=== PATIENT | male | born 1945 | race Caucasian/White ===

== ENCOUNTER 2019-04-26 01:47 | Day surgery (SDC) | payer MEDICARE, SELFPAY ==
[2019-04-20 14:32] VITALS: BMI 21.3
[2019-04-26 07:06] VITALS: BP 140/71; PULSE 73; RESP 16; TEMP 36.9; O2SAT 100
[2019-04-26] MEDS: LACTATED RINGERS 1,000 ML 150 ML IV CONT (07:23)
--- NOTE | 2019-04-26 07:23 | WPDANESEPPF ---
Anes - Initial Pre Proc Eval Procedure: Operation Date: 04/26/19 08:00 Proposed Procedures p Screening Colonoscopy - Michel Ji MD Date/Time: 04/26/19 07:23 Surgeon: Michel Ji MD Pre Op Diagnosis: Hx Colon Polyps Patient Data Age: 73 Gender: M Height: 5 ft 8 in Weight: 59.8 kg Last Vital Signs Temp 98.5 F 04/26/19 07:06 Pulse 73 04/26/19 07:06 Resp 16 04/26/19 07:06 BP 140/71 04/26/19 07:06 Pulse Ox 100 04/26/19 07:06 Allergies Allergy/AdvReac Type Severity Reaction Status Date / Time cyclobenzaprine Allergy Unknown Hallucinati Verified 04/26/19 07:13 ng Penicillins Allergy Unknown Seizure Verified 04/26/19 07:13 oxybutynin AdvReac Unknown Hallucinati Verified 04/26/19 07:13 ng Home Medications Medication Instructions Recorded Confirmed Type atorvastatin 80 mg PO HS 04/20/19 04/26/19 History esomeprazole magnesium See Rx Instructions .ROUTE 04/20/19 04/26/19 History .COMPLEX MDD MWF metoprolol tartrate 50 mg PO BID 04/20/19 04/26/19 History nitroglycerin 0.4 mg SUBLINGUAL PRN PRN 04/20/19 04/20/19 History Patient hx anesthesia problems: none Family hx anesthesia problems: none [facility]LY [facility] Past Medical History Medical History (Updated 01/22/19 @ 00:00 by [facility] Daesau) Angina at rest CAD (coronary artery disease) COPD (chronic obstructive pulmonary disease) HTN (hypertension) Hypercholesterolemia Inguinal hernia Myocardial infarction Prostate cancer Seizures Surgical History Surgical History (Updated 01/21/19 @ 17:50 by ESTEFANIA Haider) H/O angioplasty H/O cardiac catheterization H/O inguinal hernia repair H/O prostatectomy History of total knee arthroplasty Status post implantation of artificial urinary sphincter Social History Social History Smoking status: Current every day smoker Second hand tobacco smoke exposure: Yes Alcohol intake: current Gender identity (if verbalized by the patient): Male Anes - Eval Final PreProcedure Day of Procedure 04/26/19 07:23 Patient weight: normal Heart: regular rate and rhythm Lungs: clear to auscultation Airway: Mallampati scale class II Neurological: alert and oriented Last oral intake: >/= 8 hours ASA classification: III Emergent: no Anesthetic plan: proceed Anesthesia type and monitoring: general GIVS and standard monitoring Informed Consent: The patient's anesthetic plan and its attendant risks and benefits were discussed with the patient/family/POA. Questions were solicited and answers provided to the satisfaction of the patient/family/POA.
--- NOTE | 2019-04-26 08:01 | P.CONGI_ITS ---
Assessment and Plan Additional Plan This is a 73-year-old white male patient who presents for colonoscopy. Patient is seen at the request of Dr. Schilling. Patient has a history of a tubulovillous adenoma removed in 2013. His current weight appetite bowel movements are normal. He denies any abdominal pain. He denies any bleeding. His bowel habits are regular. Family history is noncontributory. Past medical history is significant for GE reflux. Elevated cholesterol. Hypertension. Current medications include Nexium, atorvastatin, metoprolol, and sublingual nitroglycerin p.r.n.. Patient is allergic to penicillin and Flexeril. Physical exam reveals him to be alert. Oriented x3. HEENT exam unremarkable. He is anicteric. Lungs are clear to auscultation and percussion. Heart is without murmur or extra sounds. Abdominal exam bowel sounds are present soft nontender with no hepatosplenomegaly. Digital external rectal exam is normal. Impression 1. Personal history of colon polyps. Plan is for surveillance colonoscopy at this time. Should be considered at intervals in the future as well. GI Consult Note Consult date/time: 04/26/19 08:01 HPI: Villa Du is a 73 year old male FOR[facility]LY [facility] Past Medical History Medical History (Updated 01/22/19 @ 00:00 by Nash Daesau) Angina at rest CAD (coronary artery disease) COPD (chronic obstructive pulmonary disease) HTN (hypertension) Hypercholesterolemia Inguinal hernia Myocardial infarction Prostate cancer Seizures Surgical History Surgical History (Updated 01/21/19 @ 17:50 by ESTEFANIA Haider) H/O angioplasty H/O cardiac catheterization H/O inguinal hernia repair H/O prostatectomy History of total knee arthroplasty Status post implantation of artificial urinary sphincter Social History Social History Smoking status: Current every day smoker Second hand tobacco smoke exposure: Yes Alcohol intake: current Gender identity (if verbalized by the patient): Male Meds Home Medications and Allergies Home Medications Medication Instructions Recorded Confirmed Type atorvastatin 80 mg PO HS 04/20/19 04/26/19 History esomeprazole magnesium See Rx Instructions .ROUTE 04/20/19 04/26/19 History .COMPLEX MDD MWF metoprolol tartrate 50 mg PO BID 04/20/19 04/26/19 History nitroglycerin 0.4 mg SUBLINGUAL PRN PRN 04/20/19 04/20/19 History Allergies Allergy/AdvReac Type Severity Reaction Status Date / Time cyclobenzaprine Allergy Unknown Hallucinati Verified 04/26/19 07:13 ng Penicillins Allergy Unknown Seizure Verified 04/26/19 07:13 oxybutynin AdvReac Unknown Hallucinati Verified 04/26/19 07:13 ng Vital Signs Vital Signs - 24 hr 04/26/19 07:06 Temperature 36.9 C Pulse Rate 73 Respiratory Rate 16 Blood Pressure 140/71 Pulse Oximetry 100
[2019-04-26 08:34] VITALS: BP 93/56; PULSE 62; RESP 26; O2SAT 98
[2019-04-26 08:44] VITALS: BP 112/66; PULSE 66; RESP 16; O2SAT 100
[2019-04-26 08:54] VITALS: BP 108/53; PULSE 64; RESP 21; O2SAT 100
== END 2019-04-26 09:15 | disposition home or self-care (01) ==
PROVIDERS: PCP Family Medicine; Visit Provider Internal Medicine Gastroenterology
PROC: 0DJD8ZZ Inspection of Lower Intestinal Tract, Via Natural or Artificial Opening Endoscopic (ICD-10-PCS; CPT 45378; principal; 2019-04-26 08:00)
DX: Z12.11 Encounter for screening for malignant neoplasm of colon (principal); K64.8 Other hemorrhoids; Z86.010 Personal history of colon polyps; I10 Essential (primary) hypertension; E78.00 Pure hypercholesterolemia, unspecified; K21.9 Gastro-esophageal reflux disease without esophagitis; I25.10 Atherosclerotic heart disease of native coronary artery without angina pectoris; J44.9 Chronic obstructive pulmonary disease, unspecified; I25.2 Old myocardial infarction; G40.909 Epilepsy, unspecified, not intractable, without status epilepticus; Z85.46 Personal history of malignant neoplasm of prostate; F17.210 Nicotine dependence, cigarettes, uncomplicated
CPT/HCPCS: G0121; J2704; J7120

== ENCOUNTER 2019-10-31 07:53 | Outpatient (CLI) | payer MEDICARE, SELFPAY ==
--- NOTE | ~2019-10-31 | US_ITS ---
EXAMINATION: US art doppler w press LE BI DATE: 10/31/2019 08:35 INDICATION: Claudication of both lower extremities. TECHNIQUE: Segmental pressures and plethysmographic and Doppler waveforms of the brachial and lower e xtremity arteries were obtained. COMPARISON: Arterial Doppler and segmental pressures 11/03/2018 FINDINGS: Right and left brachial artery pressures of 118 mm Hg and 119 mm Hg, respectively, are concordant (no rmal difference <= 30 mmHg). The right high-thigh pressure index is 1.00 (normal > 1.2). The right ankle-brachial index (ALONSO) is 0 .94 (normal >= 0.9-1.0). The right great toe-brachial index (TBI) is 0.75 (normal >= 0.65). The right lower extremity segmental pressure gradients are normal (normal gradients <= 20-30 mmHg between alejandra cent levels on the same leg or the same levels on the two legs). Arterial Doppler waveforms are bipha sic from common femoral artery to the ankle. The left high-thigh pressure index is 0.99. The left ALONSO is 0.94. The left TBI is 0.65. The left lowe r extremity segmental pressure gradients are normal. Arterial Doppler waveforms are biphasic from com mon femoral artery to the ankle. IMPRESSION: 1. Mildly decreased ABIs with interval worsening on the right, consistent with arterial occlusive dis ease. Reviewed, dictated and finalized at location B. IMPRESSION: 1. Mildly decreased ABIs with interval worsening on the right, consistent with arterial occlusive disease.
== END 2019-10-31 07:54 | disposition home or self-care (01) ==
LOC: ANHIMG 07:54
PROVIDERS: PCP Family Medicine; Visit Provider Family Medicine
DX: I73.9 Peripheral vascular disease, unspecified (principal)
CPT/HCPCS: 93923

== ENCOUNTER 2020-09-26 13:15 | Outpatient (CLI) | payer MEDICARE, SELFPAY ==
--- NOTE | ~2020-09-26 | CT_ITS ---
EXAMINATION: CT lung screening DATE: 09/26/2020 13:34 INDICATION: Personal history of nicotine dependence, current smoker with 60 pack year history TECHNIQUE: Computed tomography (CT) of the chest was performed without intravenous contrast. The dose -length product (DLP) was 83.71 mGy-cm. Automated exposure control and iterative reconstruction techn ePantryue were employed. COMPARISON: 12/15/2018 FINDINGS: There are areas of scarring in the lung apices. There is mild emphysema. Calcified pulmonar y nodules are consistent with old granulomatous disease. The lungs are free of acute opacities. There is no pleural effusion or pneumothorax. No pathologically enlarged thoracic lymph nodes are identifi ed. The heart size is normal. Calcified coronary artery atherosclerosis is noted. There is moderate t horacic spondylosis. Bilateral gynecomastia is noted. IMPRESSION: 1. Lung-RADS category 1: Negative. Continue annual screening with noncontrast low-dose chest CT in 12 months. Reviewed, dictated and finalized at location B. IMPRESSION: 1. Lung-RADS category 1: Negative. Continue annual screening with noncontrast l ow-dose chest CT in 12 months.
== END 2020-09-26 13:16 | disposition home or self-care (01) ==
PROVIDERS: PCP Family Medicine; Visit Provider Family Medicine
DX: Z12.2 Encounter for screening for malignant neoplasm of respiratory organs (principal); Z87.891 Personal history of nicotine dependence
CPT/HCPCS: 71271

== ENCOUNTER 2021-06-01 10:04 | Outpatient (CLI) | payer MEDICARE, SELFPAY ==
--- NOTE | ~2021-06-01 | MR_ITS ---
EXAMINATION: MR brain IAC wo/w con DATE: 06/01/2021 11:10 INDICATION: Other amnesia. TECHNIQUE: Magnetic resonance imaging (MRI) of the brain, brainstem, and internal auditory canals was performed without and with 11 mL MultiHance intravenous contrast. Sequences included sagittal and ax ial T1-weighted FSE, axial diffusion-weighted FS EPI, axial T2*-weighted GRE, axial T2-weighted FLAIR Propeller, axial T2-weighted Propeller, small zhuah-we-vlcu coronal FIESTA, small kfays-al-wdss wily nal T1-weighted FSE, and small eccdt-ba-burp axial T1-weighted SPGR. Postcontrast sequences included axial T1-weighted FSE, small erkig-hm-tcug coronal T1-weighted FSE, and small kmyxz-qk-hkfi axial T1- weighted SPGR. Apparent diffusion coefficient (ADC) maps were created. COMPARISON: Brain MRI 01/08/2019 FINDINGS: There are scattered areas of nonspecific increased T2-weighted signal intensity in the cere bral white matter and mike. There is no intracranial hemorrhage, acute infarction, or abnormal intrac ranial mass lesion. The ventricles are normal in size. There is mild mucosal thickening in the parana li sinuses. The orbits are normal. The internal auditory canals and inner ears are normal. There is a trace left mastoid effusion. IMPRESSION: 1. Mild nonspecific cerebral white matter disease and pontine disease, which likely represents chroni c small vessel ischemic disease. Reviewed, dictated and finalized at location A. IMPRESSION: 1. Mild nonspecific cerebral white matter disease and pontine disease, which bonifacio gilbert represents chronic small vessel ischemic disease.
== END 2021-06-01 10:05 | disposition home or self-care (01) ==
LOC: ANHIMG 10:06
PROVIDERS: PCP Family Medicine; Visit Provider Nurse Practitioner Gerontology
DX: R41.0 Disorientation, unspecified (principal); R41.3 Other amnesia; Z85.46 Personal history of malignant neoplasm of prostate; R93.0 Abnormal findings on diagnostic imaging of skull and head, not elsewhere classified
CPT/HCPCS: 70553; A9577

== ENCOUNTER 2021-07-16 12:48 | Outpatient (CLI) | payer MEDICARE, SELFPAY ==
[2021-07-16 13:33] LABS: Appearance Urine Slightly Cloudy (Clear); Bilirubin Urine Negative (Negative); Color Urine Yellow (Yellow); Glucose Urine UA Negative (Negative); Ketones Urine Negative (Negative); Leukocyte Esterase Ur 2+ LEU/UL (Negative); Nitrate Urine Positive (Negative); Protein Urine Trace mg/dL (Negative); Specific Grav Ur 1.025 (1.001-1.035); Urobilinogen Urine 0.2 mg/dL (<2.0); pH Urine 6.5 (5.0-9.0)
[2021-07-16 13:44] LABS: Bacteria Urine Trace /hpf; Mucus Urine Rare /lpf; Squamous Epithelial Cell Urine Few /hpf (Few); WBC Urine >75 /hpf
[2021-07-16 13:54] LABS: Add Urine Microscopic? YES; Blood Urine Trace-Intact (Negative)
== END 2021-07-16 12:49 | disposition home or self-care (01) ==
LOC: ANHLAB 12:51
PROVIDERS: PCP Family Medicine; Visit Provider Nurse Practitioner Gerontology
DX: R30.0 Dysuria (principal)
CPT/HCPCS: 81001; 87077; 87086; 87186

== ENCOUNTER 2021-10-05 07:46 | Outpatient (CLI) | payer MEDICARE, SELFPAY ==
--- NOTE | ~2021-10-05 | CT_ITS ---
EXAMINATION:CT lung screening DATE: 10/05/2021 08:07 INDICATION: Tobacco use. Current smoker with 60 pack year history. TECHNIQUE: Computed tomography (CT) of the chest was performed without intravenous contrast. Automate d exposure control and iterative reconstruction technique were employed. The dose-length product (DLP ) was 66.80 mGy-cm. COMPARISON: Chest CT 09/26/2020 FINDINGS: There is mild emphysema. There is stable mild scarring at the lung apices. There is mild at electasis bilaterally. There is a 3 mm nodule in left lower lobe. Calcified right hilar lymph nodes a re consistent with old granulomatous disease. No pleural effusion. 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 The heart size is normal. There are coronary artery calcifications. There are calcificati ons of the aortic valve. No pericardial effusion. There is bilateral gynecomastia. There is severe th oracic spondylosis. IMPRESSION: 1. Lung-RADS category 2: Benign appearance or behavior. Continue annual screening with noncontrast lo w-dose chest CT in 12 months. Reviewed, dictated and finalized at location A. IMPRESSION: 1. Lung-RADS category 2: Benign appearance or behavior. Continue annual screeni ng with noncontrast low-dose chest CT in 12 months.
== END 2021-10-05 07:47 | disposition home or self-care (01) ==
PROVIDERS: PCP Family Medicine; Visit Provider Physician Assistant
DX: Z12.2 Encounter for screening for malignant neoplasm of respiratory organs (principal); Z87.891 Personal history of nicotine dependence
CPT/HCPCS: 71271

== ENCOUNTER 2021-10-23 08:33 | Outpatient (CLI) | payer MEDICARE, SELFPAY ==
--- NOTE | 2021-10-23 11:04 | WPDNEUROLOGY ---
Neurology EEG Report General Information Date of Study: 10/23/21 TEST Routine EEG DIAGNOSIS Dementia CONDITION OF RECORDING Awake, drowsy, alseep EEG NUMBER [id number] CLINICAL HISTORY Patient reports he is having trouble with his memory. Not sure how long it has been going on. EEG DESCRIPTION During the awake state with eyes closed the background consists of 8 Hz posterior dominant rhythm. The recording is continuous. There is a well developed anterior-posterior gradient. No significant asymmetries of background activities are noted. With drowsiness there is was waxing and waning of the dominant rhythm with eventual replacement by a mixture of beta, alpha, and theta activity. As the patient enters stage II sleep, symmetrical spindles and K complexes wave are present. There are no epileptiform discharges or seizures during this recording. Photic stimulation was performed which did not illicit any epileptiform features or seizures. IMPRESSION This is a normal routine EEG recorded in awake, drowsy, and asleep states. There are no electrographic seizures identified, nor are there any epileptiform discharges. Please note that a normal EEG cannot exclude a seizure disorder. Clinical correlation is recommended.
== END 2021-10-23 08:34 | disposition home or self-care (01) ==
LOC: ANHNEURO 08:38
PROVIDERS: PCP Family Medicine; Visit Provider Psychiatry & Neurology Neurology
DX: F03.90 Unspecified dementia, unspecified severity, without behavioral disturbance, psychotic disturbance, mood disturbance, and anxiety (principal); R44.3 Hallucinations, unspecified
CPT/HCPCS: 95816

== ENCOUNTER 2022-05-16 15:07 | Inpatient (IN) | payer MEDICARE, SELFPAY ==
[2022-05-16] VITALS (9 sets, daily range): BP systolic 108–153; BP diastolic 47–82; PULSE 105–122; RESP 18–24; TEMP 37–37.6; O2SAT 95–98; BMI 20.6
--- NOTE | ~2022-05-16 | CT_ITS ---
Clinical Indication: Pneumonia, mass CT Scan of the Chest with Contrast: Technique: Contiguous sections were acquired throughout the chest after intravenous administration of 75 cc of Omnipaque 350. Dose reduction technique was used on this scan by utilizing automated exposu re control and iterative reconstruction technique. The dose-length product (DLP) was 158.03 mGy-cm. COMPARISON: 10/05/2021 Findings: There is no evidence of any significant mediastinal, hilar or axillary lymphadenopathy. Coronary ruma ry calcifications are present. There are atherosclerotic calcifications of the aorta. No aortic aneur ysm dissection evident. No large central pulmonary embolus seen. 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 There is no evidence of pleural or pericardial effusion. There is somewhat masslike right upper lobe consolidation, with the densest portion of consolidation measuring approximately 5.9 x 4.7 cm in extent, with more patchy surrounding airspace disease in the right upper lobe. There is a 6 mm irregular nodular opacity in the right lower lobe (axial image 80). Left lung is clear. Images through the upper abdomen reveal no abnormalities. Impression: Extensive somewhat masslike consolidation in the right upper lobe, as detailed above. As the right up per lobe was completely clear on prior exam dated 10/05/2021, pneumonia is favored over neoplasm. Short -term follow-up CT recommended to reevaluate following interval therapy in 1 month. If there is persi stent clinical concern for neoplasm, then tissue sampling could also be considered to establish a his tologic diagnosis at this time. Reviewed, dictated and finalized at [facility]. Impression: Extensive somewhat masslike consolidation in the right upper lobe, as detailed above. As the right upper lobe was completely clear on prior exam dated 2, pneumonia is favored over neoplasm. Short-term follow-up CT recommended to r eevaluate following interval therapy in 1 month. If there is persistent clinica l concern for neoplasm, then tissue sampling could also be considered to establ maryanne a histologic diagnosis at this time.
--- NOTE | ~2022-05-16 | XR_ITS ---
Clinical Indication: Cough AP and lateral views of the chest: Comparison: 07/31/2016 Findings: There is right upper lobe consolidation. Left lung clear. Cardiomediastinal silhouette is within normal limits. Bones and soft tissues are unremarkable. Impression: Right upper lobe consolidation, most consistent with pneumonia. Follow-up to radiographic resolution is advised to exclude underlying mass. Reviewed, dictated and finalized at location . Impression: Right upper lobe consolidation, most consistent with pneumonia. Follow-up to ra diographic resolution is advised to exclude underlying mass.
--- NOTE | ~2022-05-16 | CT_ITS ---
Non-contrast CT scan of the Abdomen and Pelvis Clinical indication: Hematuria Technique: 2.5 mm axial scans were obtained through the abdomen and pelvis without intravenous or or al contrast. Dose reduction technique was used on this scan by utilizing automated exposure control a nd iterative reconstruction technique. The dose-length product (DLP) was 388.04 mGy-cm. COMPARISON: 01/30/2018 Findings: Images through the lung bases reveal no abnormalities. There is no evidence of renal or ureteral calculi. The kidneys and the ureters are nondilated. The liver, spleen, pancreas, gallbladder, and adrenals appear normal. There is no aortic aneurysm. T here are atherosclerotic calcifications of the aorta. There is no evidence of bowel obstruction. No ascites evident. Images through the pelvis are degraded by extensive streak artifact from bilateral hip arthroplasties . No gross pelvic abnormality seen. There is focal aneurysmal dilatation of the left common iliac art ting to 1.8 cm. Impression: No etiology for hematuria identified on this exam. 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 Reviewed, dictated and finalized at [facility]. Impression: No etiology for hematuria identified on this exam. 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
--- NOTE | ~2022-05-16 | XR_ITS ---
AP view of the pelvis and AP and lateral views of the left hip Clinical history: Pain Findings: No acute fracture or dislocation is seen. Bilateral hip arthroplasties are present. Mild de generative change of the SI joints noted. Soft tissues are unremarkable. Impression: No acute abnormality. 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 Reviewed, dictated and finalized at location . Impression: No acute abnormality. 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
--- NOTE | 2022-05-16 15:13 | ECG_ITS ---
Measurements Intervals [place] Rate: 116 P: 59 VT: 173 QRS: 13 QRSD: 89 T: 57 QT: 359 QTc: 499 Interpretive Statements SINUS TACHYCARDIA NON-CONDUCTED ATRIAL PREMATURE COMPLEXES POSSIBLE LEFT ATRIAL ENLARGEMENT BORDERLINE ST-T WAVE ABNORMALITY- ANTEROLAT/HIGH LAT LEADS BASELINE ARTIFACT- I, II, III, AVR, AVL, AVF, V1-V6 ABNORMAL ECG NO PREVIOUS ECG AVAILABLE FOR COMPARISON Electronically Signed On 05-16-2022 20:24:04 CDT by Reji Shoemaker D.O.
--- NOTE | 2022-05-16 16:03 | ED.GENADULT ---
HPI - General Adult General Chief complaint: Fall Stated complaint: fall- left hip pain History of Present Illness HPI narrative: 76-year-old male presenting to the emerged department for evaluation of cute onset of left hip pain after having a ground-level fall this morning. Patient reports he was sitting at his chair using the computer when he began to slip and was unable to recover. Patient is unsure how he fell but feels that he hyperextended his left hip. Patient does have underlying history of dementia and is a poor historian. Patient denies striking his head. Patient reports he has had increased cough and congestion. Patient was wearing 2 depends on arrival to the ED. was not initially present during the initial evaluation. Patient does have a prior history of this, hypertension, high cholesterol, COPD, dementia Related Data Home Medications Medication Instructions Recorded Confirmed atorvastatin 80 mg tablet 80 mg PO HS 04/20/19 06/29/21 metoprolol tartrate 50 mg tablet 50 mg PO BID 04/20/19 06/29/21 aspirin 81 mg tablet,delayed 81 mg PO DAILY 08/13/21 release (Adult Low Dose Aspirin) Allergies Allergy/AdvReac Type Severity Reaction Status Date / Time Penicillins Allergy Unknown Seizure Verified 11/17/21 15:15 cyclobenzaprine AdvReac Unknown Hallucinati Verified 05/16/22 16:35 ng oxybutynin AdvReac Unknown Hallucinati Verified 11/17/21 15:15 ng Review of Systems Review of Systems: . All systems reviewed & are unremarkable except as noted in HPI and below PMFSH Past Medical History Medical History Angina at rest CAD (coronary artery disease) COPD (chronic obstructive pulmonary disease) HTN (hypertension) Hypercholesterolemia Inguinal hernia Myocardial infarction Prostate cancer Seizures Tobacco abuse Surgical History Surgical History H/O angioplasty H/O cardiac catheterization H/O inguinal hernia repair H/O prostatectomy Hx of appendectomy S/P total hip arthroplasty bilateral Status post implantation of artificial urinary sphincter Family History Family History Other Family history of heart disease in male family member before age 55 Malignant neoplasm of prostate Social History Social History Social History: Smoking packs per day: 1.5 Smoking cigarettes per day: 30.0 Years smoked: 60 Smoking pack-years: 90.00 Smoking status: Current every day smoker Tobacco type: cigarettes Second hand tobacco smoke exposure: Yes Alcohol intake: current Alcohol use details: Occasionally Substance use: never Substance use type: does not use Living arrangements: with family Occupation/Education: retired Gender identity (if verbalized by the patient): Male Sexual Orientation (if Verbalized by the Patient): Straight or Heterosexual Exam Narrative: APPEARANCE: Well appearing, no pain, no distress, well-nourished. HEAD: normocephalic, atraumatic. EYES: PERRLA/EOMI, conjunctivae clear. NOSE: Normal no drainage NECK: Supple. No adenopathy, no masses. RESPIRATORY: Airway patent, respirations nonlabored. Clear to auscultation bilaterally, no rales, rhonchi, wheezing. CARDIOVASCULAR: Regular rate and rhythm without murmurs rubs or gallops. ABDOMINAL: Soft, nontender, nondistended, normal bowel sounds MUSCULOSKELETAL: Moves all extremities. Left lateral hip tenderness to palpation. Normal range of motion. Neurovascular intact. NEURO: Alert. Cranial nerves II through XII intact. Grossly intact SKIN: Warm, dry. Normal Color Course Course Emergency Course: 76-year-old male with history of left hip pain post fall. X-ray shows no acute fracture or dislocation of the left hip. Patient was tachycardic upon arri
[2022-05-16 16:12] LABS: Basophils Percent Auto 0.2 % (0.2-1.2); Eosinophils Absolute Auto 0.1 K/mm3 (0-0.3); Eosinophils Percent Auto 0.9 % (0-4.4); Hematocrit 31.5 % (42.0-52.0); Hemoglobin 10.4 g/dL (14.0-18.0); Immature Granulocyte Absolute 0.03 K/mm3 (0.00-0.031); Immature Granulocyte Percent A 0.3 % (0-0.5); Lymphocytes Absolute Auto 0.67 K/mm3 (0.9-3.2); Lymphocytes Percent Auto 6.4 % (18.3-44.2); Mean Corpuscular Hemoglobin 31.6 pg (26-34); Mean Corpuscular Volume 95.7 fl (80-100); Mean Platelet Volume 9.8 fl (7.4-10.4); Monocytes Absolute Auto 1.1 K/mm3 (0.1-0.6); Monocytes Percent Auto 10.6 % (2.6-8.5); Neutrophils Absolute Auto 8.6 K/mm3 (1.3-6.7); Neutrophils Percent Auto 81.6 % (45.5-73.1); Platelet Count Result 272 k/mm3 (150-375); Red Blood Count 3.29 M/mm3 (4.6-6.20); Red Cell Distribution Width 14.3 % (11.5-14.5); White Blood Count 10.6 K/mm3 (4.5-10.0)
[2022-05-16 16:23] LABS: Alanine Aminotransferase 42 U/L (6-50); Albumin Level 3.7 g/dL (3.5-5.1); Alkaline Phosphatase 120 U/L (38-126); Anion Gap 5 mmol/L (8-16); Aspartate Amino Transferase 41 U/L (17-59); Blood Urea Nitrogen 12 mg/dL (9-20); Carbon Dioxide 28 mmol/L (22-30); Chloride 101 mmol/L (98-107); Estimated CRCL calculation 50 ml/min; Estimated Glomerular Filt Rate > 60; Glucose 115 mg/dL (65-110); Sodium 134 mmol/L (137-145)
[2022-05-16] MEDS: POTASSIUM CHLORIDE 20 MEQ PACKET (FOR LIQUID) 40 MEQ PO (16:43)
[2022-05-16 16:46] LABS: Influenza A QL RT-PCR Negative (Negative); Influenza B QL RT-PCR Negative (Negative); RSV RNA, RT-PCR Negative (Negative); SARS-CoV-2 RNA PCR Negative
[2022-05-16 17:03] LABS: Appearance Urine Cloudy (Clear); Bacteria Urine 2+ /hpf; Bilirubin Urine Negative (Negative); Blood Urine 1+ (Negative); Color Urine Dark Yellow (Yellow); Glucose Urine UA Negative (Negative); Ketones Urine Negative (Negative); Leukocyte Esterase Ur Negative LEU/UL (Negative); Nitrate Urine Negative (Negative); Protein Urine 2+ mg/dL (Negative); Specific Grav Ur 1.021 (1.001-1.035); Squamous Epithelial Cell Urine Few /hpf (Few); WBC Urine 0-5 /hpf
[2022-05-16 17:12] LABS: Add Urine Microscopic? YES
[2022-05-16] MEDS: KCL 20 MEQ/SW 100 ML 100 ML 50 MEQ IVPB (17:21)
[2022-05-16] MEDS: SODIUM CHLORIDE 0.9% IV 250 ML 50 ML (17:25)
[2022-05-16] MEDS: ALBUTEROL SULFATE NEB 2.5 MG/3 ML INH INHALATION (19:55)
--- NOTE | 2022-05-16 19:55 | PM.IMHP ---
H&P: HPI History of Present Illness Date/Time: 05/16/22 19:55 Chief Complaint: fall Narrative: this is a 76-year-old male patient who came to the emergency department for evaluation of acute left hip pain. The patient had a ground level fall this morning. Patient was sitting in his chair using his computer when he began to slipped and he was not able to recover from his fall. The patient hyperextended his left hip. He does have a history of dementia and is a poor historian. Patient has had a history of prostate cancer and has had a prostatectomy. The patient is chronically incontinent of urine. He has no control of his urine and was wearing a depend upon arrival to ED. his white count is found to be 10.6 and his H&H is 10.4 and 31.5. Shift to the left with neutrophil percentage 81.6. Sodium 134. Potassium is 3.0. The patient had 2+ bacteria In his urine. The patient was supplemented with p.o. potassium and IV potassium. He was given IV fluids in the emergency room. The patient was started on Levaquin. Chest CT was read as the followingExtensive somewhat masslike consolidation in the right upper lobe, as detailed above. As the right upper lobe was completely clear on prior exam dated 10/05/2021, pneumonia is favored over neoplasm. Short-term follow-up CT recommended to reevaluate following interval therapy in 1 month. If there is persistent clinical concern for neoplasm, then tissue sampling could also be considered to establish a histologic diagnosis at this time. 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 hip and pelvis x-ray No acute abnormality. Bilateral hip arthroplasties in placeThe patient is being admitted to observation status on the date of service of 05/16/2022 Review of Systems Review of Systems: All systems reviewed & are unremarkable except as noted in HPI and below Constitutional: Constitutional: Reports as per HPI and Reports no additional constitutional complaints Eyes: Eyes: Reports as per HPI and Reports no additional eye complaints ENT: Reports system reviewed and no additional complaints, except as documented and Reports Normal hearing present Cardiovascular: Cardiovascular: Reports no additional cardiovascular complaints Respiratory: Respiratory: Reports no additional respiratory complaints and Reports no additional respiratory complaints Gastrointestinal: Gastrointestinal: Reports as per HPI and Reports no additional gastrointestinal complaints Musculoskeletal: Musculoskeletal: Reports no additional musculoskeletal complaints Integumentary/Breasts: Skin/Breast: Reports system reviewed and no additional complaints, except as docu and Reports as per HPI Neurologic: Reports system reviewed and no additional complaints, except as documented, Reports as per HPI and Reports Normal hearing present Psychiatric: Psychiatric: Reports no additional psychiatric complaints and Reports as per HPI Endocrine: Endocrine: Reports no additional endocrine complaints Hematologic/Lymphatic: Hematologic/Lymphatic: Reports no additional hematologic/lymphatic complaints Allergic/Immunologic: Allergic/Immunologic: Reports no additional allergic/immunologic complaints [facility] Past Medical History Medical History (Updated 05/17/22 @ 01:06 by Adina Cast NP) Angina at rest CAD (coronary artery disease) COPD (chronic obstructive pulmonary disease) HTN (hypertension) Hypercholesterolemia Inguinal hernia Myocardial infarction Obstructive sleep apnea Prostate cancer Seizures Tobacco abuse Surgical History Surgical History (Updated 05/17/22 @ 01:06 by Adina Cast NP) H/O angioplasty H/O cardiac catheterization H/O heart artery stent 2 H/O hemorrhoidectomy H/O inguinal hernia repair with mesh H/O prostatectomy Hx of appendectomy S/P total hip arthroplasty bilateral Status post implantation of artificial urinary sphincter Family History Family History (Reviewe
--- NOTE | 2022-05-16 20:28 | PC.NURSE ---
This patient, iVlla Du, was admitted to IMU Room 206-01. Patient/family oriented to hospital policies and general routines including ID bracelet, bed and alarms, visiting hours, pain management, procedures, bathroom and other care routines, personal items, smoking policy, room service/diet, and visiting hours. Information on how to activate the Rapid Response Team has been discussed. Patient/Family are encouraged to report perceived risks to care and to ask questions if they do not understand what they are told or what they should do.
[2022-05-17] VITALS (20 sets, daily range): BP systolic 100–136; BP diastolic 50–62; PULSE 98–118; RESP 14–22; TEMP 36.9–37.6; O2SAT 93–96; BMI 20.6
[2022-05-17] MEDS: MIRTAZAPINE 7.5 MG TABLET PO ×2 (01:42→21:11)
[2022-05-17] MEDS: QUEtiapine FUMARATE 25 MG TABLET 50 MG PO ×2 (01:42→21:11)
[2022-05-17] MEDS: DONEPEZIL HCL 5 MG TABLET PO ×2 (01:42→21:11)
[2022-05-17] MEDS: ATORVASTATIN 40 MG TABLET 80 MG PO ×2 (01:42→21:10)
[2022-05-17] MEDS: IPRATROPIUM BR 0.02% INH SOLN 0.5 MG/2.5 ML VIAL INHALATION ×4 (03:20→21:35)
[2022-05-17] MEDS: ALBUTEROL SULFATE NEB 2.5 MG/3 ML INH INHALATION ×4 (03:20→21:35)
[2022-05-17 08:33] LABS: Basophils Percent Auto 0.2 % (0.2-1.2); Eosinophils Absolute Auto 0.1 K/mm3 (0-0.3); Eosinophils Percent Auto 0.9 % (0-4.4); Hematocrit 31.1 % (42.0-52.0); Hemoglobin 10.2 g/dL (14.0-18.0); Immature Granulocyte Absolute 0.05 K/mm3 (0.00-0.031); Immature Granulocyte Percent A 0.4 % (0-0.5); Lymphocytes Absolute Auto 0.96 K/mm3 (0.9-3.2); Lymphocytes Percent Auto 8.2 % (18.3-44.2); Mean Corpuscular HGB Conc 32.8 g/dl (32-36); Mean Corpuscular Hemoglobin 31.7 pg (26-34); Mean Corpuscular Volume 96.6 fl (80-100); Monocytes Absolute Auto 1.6 K/mm3 (0.1-0.6); Monocytes Percent Auto 13.6 % (2.6-8.5); Neutrophils Percent Auto 76.7 % (45.5-73.1); Platelet Count Result 270 k/mm3 (150-375); Red Blood Count 3.22 M/mm3 (4.6-6.20); Red Cell Distribution Width 14.5 % (11.5-14.5); White Blood Count 11.7 K/mm3 (4.5-10.0)
[2022-05-17 08:44] LABS: Lactic Acid Reflex 2.6 mmol/L (0.7-2.0)
[2022-05-17 08:46] LABS: Alanine Aminotransferase 41 U/L (6-50); Albumin Level 3.4 g/dL (3.5-5.1); Alkaline Phosphatase 116 U/L (38-126); Anion Gap 4 mmol/L (8-16); Aspartate Amino Transferase 44 U/L (17-59); Blood Urea Nitrogen 10 mg/dL (9-20); Calcium 8.8 mg/dL (8.4-10.2); Carbon Dioxide 28 mmol/L (22-30); Chloride 105 mmol/L (98-107); Estimated CRCL calculation 44 ml/min; Estimated Glomerular Filt Rate > 60; Glucose 111 mg/dL (65-110); Lactate Dehydrogenase 131 U/L (120-246); Magnesium 2.1 mg/dL (1.6-2.3); Potassium 3.9 mmol/L (3.4-5.0); Sodium 137 mmol/L (137-145)
[2022-05-17] MEDS: METOPROLOL TARTRATE 25 MG TABLET PO ×2 (09:17→21:10)
[2022-05-17] MEDS: amLODIPine BESYLATE 2.5 MG TABLET PO (09:18)
[2022-05-17] MEDS: cilostazoL 100 MG TABLET PO ×2 (09:18→16:47)
[2022-05-17] MEDS: PANTOPRAZOLE 40 MG TABLET PO (09:18)
[2022-05-17] MEDS: ASPIRIN 81 MG ENTERIC TABLET PO (09:18)
[2022-05-17 09:31] LABS: Thyroid Stimulating Hormone Reflex 0.471 uIU/mL (0.465-4.68)
[2022-05-17 11:30] LABS: Reflex Lactic Acid Yes or No Add Lactic
[2022-05-17 11:58] LABS: Lactic Acid 0.6 mmol/L (0.7-2.0)
--- NOTE | 2022-05-17 12:16 | PM.IMPN ---
Progress Note: A&P Assessment and Plan (1) Pneumonia: Code(s): J18.9 - Pneumonia, unspecified organism Status: Acute Assessment and Plan: continue with Levaquin and vancomycin blood and sputum cultures are pending tailor antibiotics according to culture and sensitivity (2) Acute hypokalemia: Code(s): E87.6 - Hypokalemia Status: Acute Assessment and Plan: potassium 3.0 which was replaced. Check magnesium (3) Depression: Code(s): F32.A - Depression, unspecified Status: Acute Assessment and Plan: continue with Remeron continue Seroquel (4) History of prostate cancer: Code(s): Z85.46 - Personal history of malignant neoplasm of prostate Status: Acute Assessment and Plan: history of prostatectomy and is incontinent of urine (5) COPD (chronic obstructive pulmonary disease): Code(s): J44.9 - Chronic obstructive pulmonary disease, unspecified Status: Acute Assessment and Plan: continue nebulizer treatments. (6) Hypercholesterolemia: Code(s): E78.00 - Pure hypercholesterolemia, unspecified Status: Acute Assessment and Plan: Continue with atorvastatin (7) HTN (hypertension): Code(s): I10 - Essential (primary) hypertension Status: Acute Assessment and Plan: continue with Norvasc (8) Obstructive sleep apnea: Code(s): G47.33 - Obstructive sleep apnea (adult) (pediatric) Status: Acute Assessment and Plan: unsure if patient is still wearing a CPAP or BiPAP or Subjective Date/time seen: 05/17/22 12:16 No new complaints Exam Const: General: cooperative, healthy appearing, comfortable, no acute distress, well developed, alert, awake, Physically active, average body habitus and well nourished Nutritional Appearance: average body habitus and well nourished Orientation/consciousness: oriented to person, oriented to place, oriented to time and patient oriented x3 Limitations: no limitations HENMT: Head: normal to inspection, No palpable skull fracture present, normocephalic and atraumatic Ears: external ears normal Face/Nose/Sinus: Normal external nose present and Normal nares present Eyes: General: appearance normal, both eyes and all related structures Alignment and Position: alignment normal Periorbital: periorbital findings normal Eyelids: eyelids normal Sclera: sclerae normal Pupils: Equal, round and reactive pupils present EOM: EOMs intact bilaterally Neck: Neck: normal visual inspection, full ROM, no lymphadenopathy, trachea midline and supple Chest: Chest palpation & inspection: normal inspection of the chest Resp: Effort & Inspection: normal respiratory effort Auscultation: clear to auscultation bilaterally Cardio: Palpation: normal PMI Rate: tachycardic Rhythm: regular rhythm Heart sounds: S1 normal heart sound present and S2 normal heart sound present Peripheral pulses: Peripheral pulses 2+ throughout GI: Inspection: normal to inspection Auscultation: normal bowel sounds Rectal Exam: deferred Back/Spine/Pelvis: Cervical Spine: cervical ROM normal Skin: General skin exam: normal color Lesions: no lesions Rashes: no rashes Trauma: no lacerations or abrasions Wounds: no wounds Hair: normal Nails: normal Neuro: General: oriented to person, oriented to place, oriented to time and patient oriented x3 Cranial nerves: Yes Equal, round and reactive pupils present, Yes Normal hearing present and Yes hard of hearing Cognition (Neuro): normal cognition Speech: normal speech Gait exam (Neuro): Normal gait present Motor exam (neuro): 5/5 motor strength present throughout Sensory Exam: normal sensation Extrem: General: normal to inspection Right upper extremity: normal to inspection and shoulder/upper arm Left upper extremity: normal to inspection and shoulder/upper arm Right lower extremity: normal to inspection Left lower extremity: normal
--- NOTE | 2022-05-17 13:36 | PC.NURSE ---
This patient, Villa Du, was transferred to [ [facility]] on 05/17/22 at 1336. Personal belongings sent with patient. Report given to [ AJ Jackson @ [phone]]. Appropriate documentation sent with patient.
--- NOTE | 2022-05-17 14:15 | PC.NURSE ---
This patient, Villa Du, was received from imu on 05/17/22 at 1400. Patient/family oriented to unit policies and routines
[2022-05-18] VITALS (7 sets, daily range): BP systolic 105–128; BP diastolic 55–67; PULSE 99–118; RESP 15–24; TEMP 36.4–37; O2SAT 92–96
--- NOTE | 2022-05-18 04:02 | PCRCNOTE ---
Window of time for administration has passed. See next scheduled administration.
[2022-05-18] MEDS: METOPROLOL TARTRATE 25 MG TABLET PO ×2 (07:55→21:26)
[2022-05-18] MEDS: cilostazoL 100 MG TABLET PO ×2 (07:56→16:17)
[2022-05-18] MEDS: amLODIPine BESYLATE 2.5 MG TABLET PO (07:56)
[2022-05-18] MEDS: ASPIRIN 81 MG ENTERIC TABLET PO (07:56)
[2022-05-18] MEDS: IPRATROPIUM BR 0.02% INH SOLN 0.5 MG/2.5 ML VIAL INHALATION ×2 (08:21→20:36)
[2022-05-18] MEDS: ALBUTEROL SULFATE NEB 2.5 MG/3 ML INH INHALATION ×2 (08:21→20:36)
[2022-05-18 09:59] LABS: Basophils Percent Auto 0.2 % (0.2-1.2); Eosinophils Absolute Auto 0.1 K/mm3 (0-0.3); Eosinophils Percent Auto 0.8 % (0-4.4); Hematocrit 29.9 % (42.0-52.0); Hemoglobin 9.7 g/dL (14.0-18.0); Immature Granulocyte Absolute 0.08 K/mm3 (0.00-0.031); Immature Granulocyte Percent A 0.7 % (0-0.5); Lymphocytes Absolute Auto 0.65 K/mm3 (0.9-3.2); Lymphocytes Percent Auto 5.3 % (18.3-44.2); Mean Corpuscular HGB Conc 32.4 g/dl (32-36); Mean Corpuscular Hemoglobin 31.1 pg (26-34); Mean Corpuscular Volume 95.8 fl (80-100); Mean Platelet Volume 10.2 fl (7.4-10.4); Monocytes Absolute Auto 1.2 K/mm3 (0.1-0.6); Monocytes Percent Auto 9.7 % (2.6-8.5); Neutrophils Absolute Auto 10.2 K/mm3 (1.3-6.7); Neutrophils Percent Auto 83.3 % (45.5-73.1); Platelet Count Result 322 k/mm3 (150-375); Red Blood Count 3.12 M/mm3 (4.6-6.20); Red Cell Distribution Width 14.5 % (11.5-14.5); White Blood Count 12.3 K/mm3 (4.5-10.0)
[2022-05-18 10:15] LABS: Anion Gap 6 mmol/L (8-16); Blood Urea Nitrogen 8 mg/dL (9-20); Calcium 8.9 mg/dL (8.4-10.2); Carbon Dioxide 28 mmol/L (22-30); Chloride 100 mmol/L (98-107); Estimated CRCL calculation 48 ml/min; Estimated Glomerular Filt Rate > 60; Glucose 124 mg/dL (65-110); Potassium 2.8 mmol/L (3.4-5.0); Sodium 134 mmol/L (137-145)
--- NOTE | 2022-05-18 11:06 | PM.IMPN ---
Progress Note: A&P Assessment and Plan (1) Pneumonia: Code(s): J18.9 - Pneumonia, unspecified organism Status: Acute Assessment and Plan: continue with Levaquin and vancomycin blood and sputum cultures are pending tailor antibiotics according to culture and sensitivity (2) Acute hypokalemia: Code(s): E87.6 - Hypokalemia Status: Acute Assessment and Plan: Replace (3) Depression: Code(s): F32.A - Depression, unspecified Status: Acute Assessment and Plan: continue with Remeron continue Seroquel (4) History of prostate cancer: Code(s): Z85.46 - Personal history of malignant neoplasm of prostate Status: Acute Assessment and Plan: history of prostatectomy and is incontinent of urine (5) COPD (chronic obstructive pulmonary disease): Code(s): J44.9 - Chronic obstructive pulmonary disease, unspecified Status: Acute Assessment and Plan: continue nebulizer treatments. (6) Hypercholesterolemia: Code(s): E78.00 - Pure hypercholesterolemia, unspecified Status: Acute Assessment and Plan: Continue with atorvastatin (7) HTN (hypertension): Code(s): I10 - Essential (primary) hypertension Status: Acute Assessment and Plan: continue with Norvasc (8) Obstructive sleep apnea: Code(s): G47.33 - Obstructive sleep apnea (adult) (pediatric) Status: Acute Assessment and Plan: unsure if patient is still wearing a CPAP or BiPAP or Plan Likely discharge tomorrow once electrolytes have stabilized Subjective Date/time seen: 05/18/22 11:06 Respiratory status is okay. No new complaints today. No chest pain denies shortness of breaths Exam Const: General: cooperative, healthy appearing, comfortable, no acute distress, well developed, alert, awake, Physically active, average body habitus and well nourished Nutritional Appearance: average body habitus and well nourished Orientation/consciousness: oriented to person, oriented to place, oriented to time and patient oriented x3 Limitations: no limitations HENMT: Head: normal to inspection, No palpable skull fracture present, normocephalic and atraumatic Ears: external ears normal Face/Nose/Sinus: Normal external nose present and Normal nares present Eyes: General: appearance normal, both eyes and all related structures Alignment and Position: alignment normal Periorbital: periorbital findings normal Eyelids: eyelids normal Sclera: sclerae normal Pupils: Equal, round and reactive pupils present EOM: EOMs intact bilaterally Neck: Neck: normal visual inspection, full ROM, no lymphadenopathy, trachea midline and supple Chest: Chest palpation & inspection: normal inspection of the chest Resp: Effort & Inspection: normal respiratory effort Auscultation: clear to auscultation bilaterally Cardio: Palpation: normal PMI Rate: tachycardic Rhythm: regular rhythm Heart sounds: S1 normal heart sound present and S2 normal heart sound present Peripheral pulses: Peripheral pulses 2+ throughout GI: Inspection: normal to inspection Auscultation: normal bowel sounds Rectal Exam: deferred Back/Spine/Pelvis: Cervical Spine: cervical ROM normal Skin: General skin exam: normal color Lesions: no lesions Rashes: no rashes Trauma: no lacerations or abrasions Wounds: no wounds Hair: normal Nails: normal Neuro: General: oriented to person, oriented to place, oriented to time and patient oriented x3 Cranial nerves: Yes Equal, round and reactive pupils present, Yes Normal hearing present and Yes hard of hearing Cognition (Neuro): normal cognition Speech: normal speech Gait exam (Neuro): Normal gait present Motor exam (neuro): 5/5 motor strength present throughout Sensory Exam: normal sensation Extrem: General: normal to inspection Right upper extremity: normal to inspection and shoulder/upper arm Left upper extremity: normal to inspect
[2022-05-18] MEDS: POTASSIUM CHLORIDE INJ 40 MEQ in SODIUM CHLORIDE 0.9% IV 500 ML 130 MEQ IVPB (11:33)
[2022-05-18] MEDS: POTASSIUM CHLORIDE 20 MEQ TABLET 40 MEQ PO ×2 (11:33→12:55)
[2022-05-18 17:25] LABS: Potassium 3.8 mmol/L (3.4-5.0)
[2022-05-18] MEDS: ATORVASTATIN 40 MG TABLET 80 MG PO (21:25)
[2022-05-18] MEDS: TOLNAFTATE 1% POWDER 45 GM BTL 1 APPLIC TOPICAL (21:26)
[2022-05-18] MEDS: QUEtiapine FUMARATE 25 MG TABLET 50 MG PO (21:26)
[2022-05-18] MEDS: DONEPEZIL HCL 5 MG TABLET PO (21:26)
[2022-05-18] MEDS: MIRTAZAPINE 7.5 MG TABLET PO (21:26)
[2022-05-19] VITALS (7 sets, daily range): BP systolic 103–118; BP diastolic 62–107; PULSE 103–118; RESP 16–18; TEMP 36.6–37; O2SAT 93–97
[2022-05-19 05:53] LABS: Anion Gap 3 mmol/L (8-16); Blood Urea Nitrogen 10 mg/dL (9-20); Calcium 8.8 mg/dL (8.4-10.2); Carbon Dioxide 27 mmol/L (22-30); Chloride 104 mmol/L (98-107); Estimated CRCL calculation 44 ml/min; Estimated Glomerular Filt Rate > 60; Glucose 116 mg/dL (65-110); Potassium 3.3 mmol/L (3.4-5.0); Sodium 134 mmol/L (137-145)
[2022-05-19 06:27] LABS: Vancomycin Trough 5.4 ug/mL (10.0-20.0)
[2022-05-19] MEDS: cilostazoL 100 MG TABLET PO ×2 (06:57→17:07)
[2022-05-19] MEDS: IPRATROPIUM BR 0.02% INH SOLN 0.5 MG/2.5 ML VIAL INHALATION ×2 (07:37→21:13)
[2022-05-19] MEDS: ALBUTEROL SULFATE NEB 2.5 MG/3 ML INH INHALATION ×2 (07:37→21:13)
[2022-05-19] MEDS: ASPIRIN 81 MG ENTERIC TABLET PO (07:59)
[2022-05-19] MEDS: METOPROLOL TARTRATE 25 MG TABLET PO ×2 (07:59→20:11)
[2022-05-19] MEDS: PANTOPRAZOLE 40 MG TABLET PO (07:59)
[2022-05-19] MEDS: amLODIPine BESYLATE 2.5 MG TABLET PO (07:59)
[2022-05-19] MEDS: TOLNAFTATE 1% POWDER 45 GM BTL 1 APPLIC TOPICAL ×2 (08:02→20:12)
--- NOTE | 2022-05-19 11:23 | ECG_ITS ---
Measurements Intervals [place] Rate: 115 P: 60 NM: 116 QRS: 5 QRSD: 93 T: 58 QT: 328 QTc: 454 Interpretive Statements SINUS TACHYCARDIA WITH SHORT NM INTERVAL VENTRICULAR PREMATURE COMPLEX ABNORMAL ECG COMPARED TO ECG 05/16/2022 15:16:37 NO SIGNIFICANT CHANGES Electronically Signed On 05-19-2022 12:47:15 CDT by Reji Shoemaker D.O.
--- NOTE | 2022-05-19 11:27 | PM.IMPN ---
Progress Note: A&P Assessment and Plan (1) Pneumonia: Code(s): J18.9 - Pneumonia, unspecified organism Status: Acute Plan (1) Pneumonia: ?continue with Levaquin and vancomycin ?blood and sputum cultures are pending MRSA negative, stop Vancomycin continue Levaquin Tachycardia HR 118 EKG ordered patient will not discharge today due to tachycardia (2) Acute hypokalemia Replaced , monitor (3) Depression: ?continue with Remeron ?continue Seroquel (4) History of prostate cancer: ?history of prostatectomy and is incontinent of urine (5) COPD (chronic obstructive pulmonary disease): ?continue nebulizer treatments. (6) Hypercholesterolemia: ? Continue with atorvastatin (7) HTN (hypertension): ?continue? with Norvasc (8) Obstructive sleep apnea: ?unsure if patient is still wearing a CPAP or BiPAP or DVT prophylaxis Sq lovenox Subjective Date/time seen: 05/19/22 11:27 Review of Systems Review of Systems: Patient seen and evaluated bedside, not on oxygen and in no acute distress All systems reviewed & are unremarkable except as noted in HPI and below Exam Narrative: Const: Other: GEN: Healthy appearing, well-developed, NAD. PSYCH: Good Judgment. AOx3. Normal memory, mood, and affect. HEENT: -Head: NC/AT; -Eyes: No discharge or redness; -Ears: External ears are normal. -Nose: Normal nares. -Mouth and throat: MMM. Normal gums, mucosa, palate,. Good dentition. CV: RRR, no m/r/g. LUNGS: CTAB, no w/r/c. ABD: Soft, NT/ND, NBS, no masses or organomegaly. SKIN: Warm, well perfused. No skin rashes or abnormal lesions. MSK: Normal gait. No deformities. EXT: No clubbing, cyanosis, or edema. NEURO: Ambulating with no limitations. No focal deficits. Objective Data Vital Signs Vital Signs: Vital Signs - 24 hr 05/18/22 14:00 05/18/22 21:26 05/18/22 23:05 Temperature 98 F 97.5 F L Pulse Rate 107 H 107 H 118 H Respiratory Rate 16 24 H Blood Pressure 110/66 105/67 Pulse Oximetry 92 92 Oxygen Delivery 05/18/22 20:00 05/19/22 07:38 05/19/22 07:45 Temperature Pulse Rate 118 H Respiratory Rate 24 H 18 18 Blood Pressure Pulse Oximetry 92 Oxygen Delivery Room Air 05/19/22 07:58 05/19/22 07:59 05/19/22 08:00 Temperature 98.6 F Pulse Rate 114 H 114 H Respiratory Rate 16 Blood Pressure 118/107 H Pulse Oximetry 93 Oxygen Delivery Room Air Intake/Output Intake/Output: Intake & Output 05/16/22 05/17/22 05/18/22 05/19/22 23:59 23:59 23:59 23:59 Intake Total 850 810 350 Balance 850 810 350 Meds/Results Medications: Active Medications Generic Name Dose Route Start Last Admin Trade Name Freq PRN Reason Stop Dose Admin Albuterol 2.5 mg 05/16/22 20:00 05/19/22 07:37 Albuterol Sulfate Neb 2.5 Mg/3 Ml Inh INHALATION 2.5 mg Q6HRT OSCAR Administration Amlodipine Besylate 2.5 mg 05/17/22 09:00 05/19/22 07:59 Amlodipine Besylate 2.5 Mg Tablet PO 2.5 mg DAILY OSCAR Administration Aspirin 81 mg 05/17/22 09:00 05/19/22 07:59 Aspirin 81 Mg Enteric Tablet PO 81 mg DAILY OSCAR Administration Atorvastatin Calcium 80 mg 05/17/22 01:05 05/18/22 21:25 Atorvastatin 40 Mg Tablet PO 80 mg HS OSCAR Administration Cilostazol 100 mg 05/17/22 07:30 05/19/22 06:57 Cilostazol 100 Mg Tablet PO 100 mg 0730,1630 OSCAR Administration Donepezil HCl 5 mg 05/17/22 01:05 05/18/22 21:26 Donepezil Hcl 5 Mg Tablet PO 5 mg HS OSCAR Administration Levofloxacin/Dextrose 750 mg in 150 mls @ 100 mls/hr 05/17/22 20:00 05/18/22 21:30 Levaquin 750 Mg/D5w 150 Ml IVPB Infused Q24H OSCAR Infusion Ipratropium [place] 0.5 mg 05/17/22 02:00
[2022-05-19] MEDS: SODIUM CHLORIDE 0.9% IV 1,000 ML 100 ML IV CONT (14:41)
[2022-05-19] MEDS: QUEtiapine FUMARATE 25 MG TABLET 50 MG PO (20:10)
[2022-05-19] MEDS: ATORVASTATIN 40 MG TABLET 80 MG PO (20:10)
[2022-05-19] MEDS: DONEPEZIL HCL 5 MG TABLET PO (20:11)
[2022-05-19] MEDS: MIRTAZAPINE 7.5 MG TABLET PO (20:11)
[2022-05-20] VITALS (11 sets, daily range): BP systolic 112–125; BP diastolic 53–66; PULSE 90–111; RESP 12–18; TEMP 36.6–37; O2SAT 90–96
--- NOTE | 2022-05-20 01:20 | PC.NURSE ---
Pt has been combative at times throughout this shift. Pt ripped IV tubing in half and tried to pull the IV pole down onto his bed. Pt has been frequently trying to get up, and has been refusing to let staff change his wet clothes. Pt finally allowed staff to assist him to bathroom, change his clothes, and bedding. However pt became agitated and combative on the way back to his bed. Pt currently resting in bed with alarm on, and video monitoring.
[2022-05-20] MEDS: ALBUTEROL SULFATE NEB 2.5 MG/3 ML INH INHALATION ×3 (03:19→21:35)
[2022-05-20] MEDS: IPRATROPIUM BR 0.02% INH SOLN 0.5 MG/2.5 ML VIAL INHALATION ×3 (03:20→21:35)
[2022-05-20 06:32] LABS: Basophils Percent Auto 0.3 % (0.2-1.2); Eosinophils Absolute Auto 0.6 K/mm3 (0-0.3); Eosinophils Percent Auto 6.4 % (0-4.4); Hematocrit 26.9 % (42.0-52.0); Hemoglobin 8.6 g/dL (14.0-18.0); Immature Granulocyte Absolute 0.07 K/mm3 (0.00-0.031); Immature Granulocyte Percent A 0.7 % (0-0.5); Lymphocytes Absolute Auto 0.84 K/mm3 (0.9-3.2); Lymphocytes Percent Auto 8.7 % (18.3-44.2); Mean Corpuscular Hemoglobin 30.4 pg (26-34); Mean Corpuscular Volume 95.1 fl (80-100); Mean Platelet Volume 10.2 fl (7.4-10.4); Monocytes Absolute Auto 0.9 K/mm3 (0.1-0.6); Monocytes Percent Auto 8.8 % (2.6-8.5); Neutrophils Absolute Auto 7.3 K/mm3 (1.3-6.7); Neutrophils Percent Auto 75.1 % (45.5-73.1); Platelet Count Result 304 k/mm3 (150-375); Red Blood Count 2.83 M/mm3 (4.6-6.20); Red Cell Distribution Width 14.6 % (11.5-14.5); White Blood Count 9.7 K/mm3 (4.5-10.0)
[2022-05-20 06:49] LABS: Alanine Aminotransferase 71 U/L (6-50); Albumin Level 2.9 g/dL (3.5-5.1); Alkaline Phosphatase 101 U/L (38-126); Anion Gap 4 mmol/L (8-16); Aspartate Amino Transferase 80 U/L (17-59); Bilirubin,Total 0.6 mg/dL (0.2-1.3); Blood Urea Nitrogen 12 mg/dL (9-20); Calcium 8.3 mg/dL (8.4-10.2); Carbon Dioxide 26 mmol/L (22-30); Chloride 107 mmol/L (98-107); Estimated CRCL calculation 39 ml/min; Estimated Glomerular Filt Rate 59; Glucose 110 mg/dL (65-110); Sodium 137 mmol/L (137-145)
[2022-05-20 09:25] LABS: Lactic Acid Reflex 0.8 mmol/L (0.7-2.0)
[2022-05-20] MEDS: ASPIRIN 81 MG ENTERIC TABLET PO (10:01)
[2022-05-20] MEDS: METOPROLOL TARTRATE 25 MG TABLET PO ×2 (10:01→20:31)
[2022-05-20] MEDS: cilostazoL 100 MG TABLET PO ×2 (10:01→16:51)
[2022-05-20] MEDS: amLODIPine BESYLATE 2.5 MG TABLET PO (10:01)
[2022-05-20] MEDS: ENOXAPARIN 40 MG/0.4 ML SYRINGE SUB-Q (10:02)
[2022-05-20] MEDS: TOLNAFTATE 1% POWDER 45 GM BTL 1 APPLIC TOPICAL ×2 (10:02→20:36)
--- NOTE | 2022-05-20 14:10 | PM.IMPN ---
Progress Note: A&P Assessment and Plan (1) Pneumonia: Code(s): J18.9 - Pneumonia, unspecified organism Status: Acute Plan (1) Pneumonia: ?continue with day 2 Levaquin ?blood and sputum cultures are pending MRSA negative, stop Vancomycin continue Levaquin S Tachycardia HR [address] Patient has poor oral intake, will start IVF and monitor HR (2) Acute hypokalemia Replaced , monitor (3) Depression: ?continue with Remeron ?continue Seroquel (4) History of prostate cancer: ?history of prostatectomy and is incontinent of urine (5) COPD (chronic obstructive pulmonary disease): ?continue nebulizer treatments. (6) Hypercholesterolemia: ? Continue with atorvastatin (7) HTN (hypertension): ?continue? with Norvasc (8) Obstructive sleep apnea: ?unsure if patient is still wearing a CPAP or BiPAP or DVT prophylaxis Sq lovenox Disposition : C vs SNF, awaiting PT eval Subjective Date/time seen: 05/20/22 14:10 Patient was oriented to self at this encounter this morning, noted he has dementia and was at baseline Review of Systems Review of Systems: All systems reviewed & are unremarkable except as noted in HPI and below Constitutional: Constitutional: Reports as per HPI and Reports no additional constitutional complaints Eyes: Eyes: Reports as per HPI and Reports no additional eye complaints ENT: Reports system reviewed and no additional complaints, except as documented and Reports Normal hearing present Cardiovascular: Cardiovascular: Reports no additional cardiovascular complaints Respiratory: Respiratory: Reports no additional respiratory complaints and Reports no additional respiratory complaints Gastrointestinal: Gastrointestinal: Reports as per HPI and Reports no additional gastrointestinal complaints Musculoskeletal: Musculoskeletal: Reports no additional musculoskeletal complaints Integumentary/Breasts: Skin/Breast: Reports system reviewed and no additional complaints, except as docu and Reports as per HPI Neurologic: Reports system reviewed and no additional complaints, except as documented, Reports as per HPI and Reports Normal hearing present Psychiatric: Psychiatric: Reports no additional psychiatric complaints and Reports as per HPI Endocrine: Endocrine: Reports no additional endocrine complaints Hematologic/Lymphatic: Hematologic/Lymphatic: Reports no additional hematologic/lymphatic complaints Allergic/Immunologic: Allergic/Immunologic: Reports no additional allergic/immunologic complaints Exam Narrative: Const: General: cooperative, healthy appearing, comfortable, no acute distress, well developed, alert, awake, Physically active, average body habitus and well nourished Nutritional Appearance: average body habitus and well nourished Orientation/consciousness: oriented to person, oriented to place, oriented to time and patient oriented x3 Limitations: no limitations Other: GEN: Healthy appearing, well-developed, NAD. PSYCH: Good Judgment. AOx3. Normal memory, mood, and affect. HEENT: -Head: NC/AT; -Eyes: No discharge or redness; -Ears: External ears are normal. -Nose: Normal nares. -Mouth and throat: MMM. Normal gums, mucosa, palate,. Good dentition. CV: RRR, no m/r/g. LUNGS: CTAB, no w/r/c. ABD: Soft, NT/ND, NBS, no masses or organomegaly. SKIN: Warm, well perfused. No skin rashes or abnormal lesions. MSK: Normal gait. No deformities. EXT: No clubbing, cyanosis, or edema. NEURO: Ambulating with no limitations. No focal deficits. HENMT: Head: normal to inspection, No palpable skull fracture present, normocephalic and atraumatic Ears: external ears normal Face/Nose/Sinus: Normal external
--- NOTE | 2022-05-20 15:43 | P.DS_ITS ---
DS: Admitting Diagnosis Discharge Date 05/20/22 Admitting Diagnosis PNA DS: Summary Time Spent with Patient Time attestation: Total time spent providing and/or coordinating discharge services: DS: Data Data Completed and Pending Labs on day of discharge: Labs from last 24 hours 05/20/22 05/20/22 05/20/22 08:51 05:31 05:31 WBC 9.7 RBC 2.83 L Hgb 8.6 L Hct 26.9 L MCV 95.1 MCH 30.4 MCHC 32.0 RDW 14.6 H Plt Count 304 MPV 10.2 Immature Gran % (Auto) 0.7 H Neut % (Auto) 75.1 H Lymph % (Auto) 8.7 L [place] % (Auto) 8.8 H Eos % (Auto) 6.4 H Baso % (Auto) 0.3 Lymph # (Auto) 0.84 L [place] # (Auto) 0.9 H Eos # (Auto) 0.6 H Baso # (Auto) 0.0 Abs Immat Gran (auto) 0.07 H Absolute Neuts (auto) 7.3 H Absolute Nucleated RBC 0.0 Nucleated RBC % 0.0 Sodium 137 Potassium 3.0 L Chloride 107 Carbon Dioxide 26 Anion Gap 4 L BUN 12 Creatinine 1.20 Estim Creat Clear Calc 39 Estimated GFR 59 Glucose 110 Lactic Acid 0.8 Calcium 8.3 L Total Bilirubin 0.6 AST 80 H ALT 71 H Alkaline Phosphatase 101 Total Protein 6.0 L Albumin 2.9 L Preliminary micro results at discharge 05/16/22 20:08 Blood Culture - Preliminary Blood 05/16/22 20:08 Blood Culture - Preliminary Blood Discharge Plan Discharge Attending physician on discharge: Alyx Jordan Discharging Clinician: Alyx Jordan Anticipated Discharge Date/Time: 05/20/22 15:38 Patient Disposition: Home Health Service Activity: as tolerated Diet: as tolerated Discharge Instructions: per care coordination, [facility] arranged for RN, PT/OT evaluations and treatment. [facility] can be reached at [phone]. [facility] will contact you regarding first visit arrangements. Patient Instructions: Antibiotic Form, Pain Management in Older Adults (DC), Hypokalemia (DC) Stand Alone Forms: General Discharge Information Follow-up/Referrals: Lorelei Duggan MD [Primary Care Provider] - (f/u in 3- 5 days ) Discharge Medications: New levofloxacin 750 mg tablet 750 mg PO DAILY Qty: 3 0RF potassium chloride 20 mEq tablet extended release 20 meq PO DAILY Qty: 7 0RF Continued atorvastatin 80 mg tablet 80 mg PO HS metoprolol tartrate 50 mg tablet 25 mg PO Q12H quetiapine 25 mg tablet 50 mg PO HS donepezil 5 mg tablet 5 mg PO HS cilostazol 50 mg tablet 100 mg PO BID amlodipine 2.5 mg tablet 2.5 mg PO DAILY mirtazapine 15 mg tablet 7.5 mg PO HS esomeprazole magnesium [Nexium] 40 mg Capsule,Delayed Release(Dr/Ec) 40 mg PO MOWEFR aspirin [Adult Low Dose Aspirin] 81 mg tablet,delayed release (DR/EC) 81 mg PO DAILY Date of admission: 05/18/22 11:37 Primary Care Provider: Lorelei Duggan Admitting Provider: Anu Maza Attending physician on admission: Anu Maza Condition: Ser
[2022-05-20] MEDS: SODIUM CHLORIDE 0.9% IV 1,000 ML 70 ML IV CONT (16:50)
[2022-05-20 19:08] LABS: Vancomycin Trough 5.1 ug/mL (10.0-20.0)
[2022-05-20] MEDS: QUEtiapine FUMARATE 25 MG TABLET 50 MG PO (20:30)
[2022-05-20] MEDS: ATORVASTATIN 40 MG TABLET 80 MG PO (20:30)
[2022-05-20] MEDS: MIRTAZAPINE 7.5 MG TABLET PO (20:31)
[2022-05-20] MEDS: DONEPEZIL HCL 5 MG TABLET PO (20:31)
[2022-05-21] MEDS: cilostazoL 100 MG TABLET PO (06:25)
[2022-05-21 06:28] VITALS: BP 104/55; PULSE 96; RESP 20; TEMP 36.8; O2SAT 90
[2022-05-21 06:28] LABS: Basophils Percent Auto 0.3 % (0.2-1.2); Eosinophils Absolute Auto 0.7 K/mm3 (0-0.3); Eosinophils Percent Auto 7.5 % (0-4.4); Hematocrit 27.8 % (42.0-52.0); Hemoglobin 8.9 g/dL (14.0-18.0); Immature Granulocyte Absolute 0.04 K/mm3 (0.00-0.031); Immature Granulocyte Percent A 0.5 % (0-0.5); Lymphocytes Percent Auto 11.4 % (18.3-44.2); Mean Corpuscular Hemoglobin 31.1 pg (26-34); Mean Corpuscular Volume 97.2 fl (80-100); Mean Platelet Volume 10.1 fl (7.4-10.4); Monocytes Absolute Auto 0.7 K/mm3 (0.1-0.6); Monocytes Percent Auto 8.5 % (2.6-8.5); Neutrophils Absolute Auto 6.3 K/mm3 (1.3-6.7); Neutrophils Percent Auto 71.8 % (45.5-73.1); Platelet Count Result 321 k/mm3 (150-375); Red Blood Count 2.86 M/mm3 (4.6-6.20); Red Cell Distribution Width 14.8 % (11.5-14.5); White Blood Count 8.8 K/mm3 (4.5-10.0)
[2022-05-21 06:40] LABS: Alanine Aminotransferase 61 U/L (6-50); Albumin Level 2.8 g/dL (3.5-5.1); Alkaline Phosphatase 96 U/L (38-126); Anion Gap 5 mmol/L (8-16); Aspartate Amino Transferase 64 U/L (17-59); Bilirubin,Total 0.5 mg/dL (0.2-1.3); Blood Urea Nitrogen 12 mg/dL (9-20); Calcium 7.9 mg/dL (8.4-10.2); Carbon Dioxide 25 mmol/L (22-30); Chloride 108 mmol/L (98-107); Estimated CRCL calculation 45 ml/min; Estimated Glomerular Filt Rate > 60; Glucose 104 mg/dL (65-110); Potassium 2.9 mmol/L (3.4-5.0); Sodium 138 mmol/L (137-145)
[2022-05-21] MEDS: SODIUM CHLORIDE 0.9% IV 1,000 ML 70 ML IV CONT (07:58)
[2022-05-21 08:00] VITALS: PULSE 96; RESP 16; O2SAT 90
[2022-05-21 08:35] VITALS: PULSE 96; RESP 16
[2022-05-21] MEDS: ALBUTEROL SULFATE NEB 2.5 MG/3 ML INH INHALATION ×2 (08:41→14:00)
[2022-05-21] MEDS: IPRATROPIUM BR 0.02% INH SOLN 0.5 MG/2.5 ML VIAL INHALATION ×2 (08:41→14:00)
[2022-05-21] MEDS: METOPROLOL TARTRATE 25 MG TABLET PO (09:16)
[2022-05-21] MEDS: ASPIRIN 81 MG ENTERIC TABLET PO (09:16)
[2022-05-21] MEDS: amLODIPine BESYLATE 2.5 MG TABLET PO (09:16)
[2022-05-21] MEDS: ENOXAPARIN 40 MG/0.4 ML SYRINGE SUB-Q (09:16)
[2022-05-21] MEDS: PANTOPRAZOLE 40 MG TABLET PO (09:16)
[2022-05-21] MEDS: TOLNAFTATE 1% POWDER 45 GM BTL 1 APPLIC TOPICAL (09:16)
--- NOTE | 2022-05-21 11:49 | PCNFU ---
Nutrition Follow-Up Complete: Inadequate oral intake related to loss of appetite as evidenced by intakes 0-25% today Goal: Improved intakes to at least 50% meals and supplements - Goal not being met Pt current nutrition is heart healthy diet with Ensure Compact TID for additional 220 kcal and 9 g protein each. Nutrition recommendation: Switch supplement from Compact to Enlive TID and consider switching/adding a different appetite stimulant medication if indicated. Last recorded weight is 61 kg. Bowel Motility: +1 BM 05/21/22 Labs Reviewed: Hgb 8.9, Hct 27.8, Alb 2.8, K+2.9 Meds Noted: Remeron, Protonix, donepezil Skin: WNL Additional Notes: MD consult for nutrition assessment. Pt has had poor appetite since admission. He is agitated this morning wanting to go home. Given the underlying dementia, loss of appetite in the hospital setting can occur. Pt also taking donepezil as a medication which has the known side effect of weight loss. Pt is taking mirtazipine, which can sometimes be used as an appetite stimulant. Marinol is another possible choice for appetite stimulant medication which some studies show has some positive effect on appetite in dementia patients. Monitoring intakes, weights, labs, supplement tolerance, plan of care Follow up in 5 days
--- NOTE | 2022-05-21 12:23 | PM.DS ---
DS: Admitting Diagnosis Discharge Date 05/21/22 Admitting Diagnosis Pneumonia DS: Discharge Diagnosis Discharge Diagnosis Plan (1) Pneumonia: ?continue with day 5 Levaquin ?blood and sputum cultures are pending MRSA negative, stop Vancomycin discharge on 3 more days of Levaquin S Tachycardia resolved oral intake improving (2) Acute hypokalemia Replaced , monitor Discharged on 20mEq daily x 7 days repeat BMP in 3 days F/u with PCP in 3-5 days (3) Depression: ?continue with Remeron ?continue Seroquel (4) History of prostate cancer: ?history of prostatectomy and is incontinent of urine (5) COPD (chronic obstructive pulmonary disease): ?continue nebulizer treatments. (6) Hypercholesterolemia: ? Continue with atorvastatin (7) HTN (hypertension): ?continue? with Norvasc (8) Obstructive sleep apnea: ?unsure if patient is still wearing a CPAP or BiPAP or Discharged with home health, f/u with PCP in 3 -5 days DS: Summary Hospital Course Hospital Course: Presented to the ER on account of SOb and diagnosed of PNA, started on Levaquin and was admitted to Hypokalemia. Patient symptoms has improved, hypokalemia also improved but still 3.0 this morning, patient does not like hospital food adn so has been bringing him food from outside which he likes. Completed 4 days of Abx and discharged on 3 more days of Levaquin. 7 days oral KCl supplementation and f/u BMP in 3 days. F/u with PCP in 3-5 days Potassium will continue to improve as patient goes back home and revert to his regular diet. Time Spent with Patient Time attestation: Total time spent providing and/or coordinating discharge services: DS: Data Data Completed and Pending Labs on day of discharge: Labs from last 24 hours 05/21/22 05/21/22 05/20/22 05:45 05:45 18:00 WBC 8.8 RBC 2.86 L Hgb 8.9 L Hct 27.8 L MCV 97.2 MCH 31.1 MCHC 32.0 RDW 14.8 H Plt Count 321 MPV 10.1 Immature Gran % (Auto) 0.5 Neut % (Auto) 71.8 Lymph % (Auto) 11.4 L Carter % (Auto) 8.5 Eos % (Auto) 7.5 H Baso % (Auto) 0.3 Lymph # (Auto) 1.00 Carter # (Auto) 0.7 H Eos # (Auto) 0.7 H Baso # (Auto) 0.0 Abs Immat Gran (auto) 0.04 H Absolute Neuts (auto) 6.3 Absolute Nucleated RBC 0.0 Nucleated RBC % 0.0 Sodium 138 Potassium 2.9 L Chloride 108 H Carbon Dioxide 25 Anion Gap 5 L BUN 12 Creatinine 1.10 Estim Creat Clear Calc 45 Estimated GFR > 60 Glucose 104 Calcium 7.9 L Total Bilirubin 0.5 AST 64 H ALT 61 H Alkaline Phosphatase 96 Total Protein 5.0 L Albumin 2.8 L Vancomycin Trough 5.1 L Preliminary micro results at discharge 05/16/22 20:08 Blood Culture - Preliminary Blood 05/16/22 20:08 Blood Culture - Preliminary Blood Discharge Plan Discharge Attending physician on discharge: Alyx Jordan Discharging Clinician: Alyx Jordan Anticipated Discharge Date/Time: 05/20/22 15:38 Patient Disposition: Home Health Service Activity: as tolerated Diet: as tolerated Discharge Instructions: per care coordination, [facility] arranged for RN, PT/OT evaluations and treatment. [facility] can be reached at [phone]. [facility] will contact you regarding first visit arrangements. Patient Instructions: Antibiotic Form, Pain Management in Older Adults (DC), Hypokalemia (DC) Stand Alone Forms: General Discharge Information Follow-up/Referrals: Lorelei Duggan MD [Primary Care Provider] - (f/u in 3- 5 days ) Discharge Medications: New levofloxacin 750 mg tablet 750 mg PO DAILY Qty: 3 0RF potassium chloride 20 mEq tablet extended release 20 meq PO DAILY Qty: 7 0RF Continued atorvastatin 80 mg tablet 80 mg PO HS metoprolol tartrate 50 mg tablet 25 mg PO Q12H quetiapine 25 mg tablet 50 mg PO HS donepezil 5 mg tablet 5
--- NOTE | 2022-05-21 12:45 | PC.NURSE ---
Provider notified of pt refusal to take po KCL. Orders received.
[2022-05-21] MEDS: POTASSIUM CHLORIDE INJ 40 MEQ in SODIUM CHLORIDE 0.9% IV 500 ML 130 MEQ IVPB (13:26)
[2022-05-21 14:00] VITALS: PULSE 98; RESP 18
[2022-05-21 14:10] VITALS: PULSE 96; RESP 18
[2022-05-21 14:11] VITALS: BP 134/68; PULSE 94; RESP 18; TEMP 36.9; O2SAT 95
== END 2022-05-21 18:29 | disposition home health service (06) | DRG 195 ==
LOC: ANHED 18:37 → ANHIMU 19:44 → ANH3MEDSUR 05-17 13:49
PROVIDERS: Chiropractor; Nurse Practitioner; Admitting Provider Student in an Organized Health Care Education/Training Program; Emergency Provider Emergency Medicine; PCP Family Medicine; Visit Provider Internal Medicine
DX: J18.9 Pneumonia, unspecified organism (principal); I10 Essential (primary) hypertension; E78.00 Pure hypercholesterolemia, unspecified; E87.6 Hypokalemia; F32.A Depression, unspecified; F03.90 Unspecified dementia, unspecified severity, without behavioral disturbance, psychotic disturbance, mood disturbance, and anxiety; G47.33 Obstructive sleep apnea (adult) (pediatric); F17.210 Nicotine dependence, cigarettes, uncomplicated; I25.10 Atherosclerotic heart disease of native coronary artery without angina pectoris; I25.2 Old myocardial infarction; J44.9 Chronic obstructive pulmonary disease, unspecified; M25.552 Pain in left hip; N39.498 Other specified urinary incontinence; R00.0 Tachycardia, unspecified; W19.XXXA Unspecified fall, initial encounter; Z88.0 Allergy status to penicillin; Z79.82 Long term (current) use of aspirin; Z20.822 Contact with and (suspected) exposure to COVID-19; Z85.46 Personal history of malignant neoplasm of prostate; Z90.79 Acquired absence of other genital organ(s); Z90.49 Acquired absence of other specified parts of digestive tract; Z96.643 Presence of artificial hip joint, bilateral
CPT/HCPCS: 36415; 71046; 71260; 73502; 74176; 80048; 80053; 80202; 81001; 83605; 83615; 83735; 84132; 84443; 85025; 87040; 87081; 87637; 93005; 94640; 96365; 96366; 96367; 96376; 97161; 97165; 99285; A9270; G0378; J1650; J1956; J3370; J3480; J7030; J7040; J7050; Q9967

== ENCOUNTER 2022-05-24 10:30 | Outpatient (NON) | payer MEDICARE, SELFPAY ==
[2022-05-24 11:19] LABS: Anion Gap 5 mmol/L (8-16); Blood Urea Nitrogen 14 mg/dL (9-20); Calcium 8.7 mg/dL (8.4-10.2); Carbon Dioxide 25 mmol/L (22-30); Chloride 106 mmol/L (98-107); Estimated Glomerular Filt Rate > 60; Glucose 92 mg/dL (65-110); Potassium 3.9 mmol/L (3.4-5.0); Sodium 136 mmol/L (137-145)
== END 2022-05-24 10:31 | disposition home or self-care (01) ==
PROVIDERS: PCP Family Medicine; Visit Provider Family Medicine
DX: J44.0 Chronic obstructive pulmonary disease with (acute) lower respiratory infection (principal); J18.9 Pneumonia, unspecified organism; I10 Essential (primary) hypertension; E78.00 Pure hypercholesterolemia, unspecified
CPT/HCPCS: 80048

== ENCOUNTER 2022-06-16 09:31 | Outpatient (CLI) | payer MEDICARE, SELFPAY ==
--- NOTE | ~2022-06-16 | CT_ITS ---
EXAMINATION:CT diagnostic chest wo con DATE: 06/16/2022 10:00 INDICATION: Lung mass. TECHNIQUE: Computed tomography (CT) of the chest was performed without intravenous contrast. Automate d exposure control and iterative reconstruction technique were employed. The dose-length product (DLP ) was 69.96 mGy-cm. COMPARISON: Chest CT 05/16/2022, 10/05/2021 FINDINGS: There are airspace opacities with air bronchograms and central cavitation in right upper lo be. There is mild atelectasis in right lower lobe. There is mucous plugging in right lower lobe. Calc ified right hilar lymph nodes are consistent with old granulomatous disease. There is mild scarring a t left lung apex. No pleural effusion. The heart size is normal. There are coronary artery calcificat ions. No pericardial effusion. There is an aberrant right subclavian artery. Calcifications in the sp gerardo are consistent with old granulomatous disease. There is calcified atherosclerosis of the aorta a nd many of the other arteries. There is severe thoracic spondylosis. IMPRESSION: 1. Worsened necrotizing pneumonia in right lung upper lobe. Follow-up radiographs are recommended to confirm resolution. Reviewed, dictated and finalized at location A. IMPRESSION: 1. Worsened necrotizing pneumonia in right lung upper lobe. Follow-up radiograp hs are recommended to confirm resolution.
== END 2022-06-16 09:32 | disposition home or self-care (01) ==
PROVIDERS: PCP Family Medicine; Visit Provider Nurse Practitioner Gerontology
DX: R91.8 Other nonspecific abnormal finding of lung field (principal); J18.9 Pneumonia, unspecified organism
CPT/HCPCS: 71250

== ENCOUNTER 2022-06-16 12:02 | Inpatient (IN) | payer MEDICARE, SELFPAY ==
[2022-06-16] VITALS (15 sets, daily range): BP systolic 108–137; BP diastolic 55–71; PULSE 102–114; RESP 18–22; TEMP 36.8–37; O2SAT 93–100; BMI 19.1
--- NOTE | ~2022-06-16 | XR_ITS ---
EXAMINATION: XR chest 1V portable INDICATION: Pneumonia TECHNIQUE: Portable AP chest at 0523 hours COMPARISON: 06/16/2022 FINDINGS: Right upper lobe airspace opacities persist without significant change. Again seen are smal l areas of internal cavitation. No new airspace opacities are identified. The cardiomediastinal silho uette is normal. No pleural effusion or pneumothorax. IMPRESSION: 1. Stable cavitary pneumonia in the right upper lobe. Reviewed, dictated and finalized at location A.
--- NOTE | ~2022-06-16 | XR_ITS ---
EXAMINATION: XR chest 2V DATE: 06/16/2022 13:06 INDICATION: Shortness of breath. TECHNIQUE: Frontal and lateral views of the chest were obtained. COMPARISON: Chest 2 views 05/16/2022 FINDINGS: There are worsened airspace opacities in right upper lobe with cavitation. No pleural effus ion or pneumothorax. The heart size is normal. IMPRESSION: 1. Worsened cavitary pneumonia in right lung upper lobe. Follow-up radiographs are recommended to con firm resolution. Reviewed, dictated and finalized at location A. IMPRESSION: 1. Worsened cavitary pneumonia in right lung upper lobe. Follow-up radiographs are recommended to confirm resolution.
--- NOTE | ~2022-06-16 | XR_ITS ---
EXAMINATION: XR barium swallow modified DATE: 06/19/2022 13:27 INDICATION: Cough with oral intake TECHNIQUE: Modified barium esophagram was performed by myself who administered fluoroscopy, in conju nction with speech pathologist who administered barium in varying consistencies as per speech patholo gist documentation. This was recorded on tape. A single fluoroscopic spot image was recorded. Fluoros copy exposure time was 1.1 minutes. The DAP for this procedure was 0.891 Gycm2. FINDINGS: Oral stage: Reduced labial seal/lips tension, reduced lingual movement. Pharyngeal phase: Reduced laryngeal elevation and laryngeal adduction, reduced tongue base contractio n and pharyngeal squeeze, piriform sinus residue. Laryngeal penetration: None. Aspiration: None. Laryngeal sensitivity: Not applicable. IMPRESSION: Abnormal modified barium swallow as above. Please refer to speech pathologist findings an d specific feeding recommendations. Reviewed, dictated and finalized at location A. IMPRESSION: Abnormal modified barium swallow as above. Please refer to speech p athologist findings and specific feeding recommendations.
--- NOTE | ~2022-06-16 | XR_ITS ---
Portable chest x-ray Comparison: 06/19/2022 Clinical History: Pneumonia Findings: There is probable hazy right upper lobe pneumonia. There is minimal left pleural effusion. Cardiomediastinal silhouette is stable. Bones and soft tissues are unremarkable. Impression: Right upper lobe pneumonia. Minimal left pleural effusion. Reviewed, dictated and finalized at [facility]. Impression: Right upper lobe pneumonia. Minimal left pleural effusion.
[2022-06-16 12:43] LABS: Basophils Percent Auto 0.1 % (0.2-1.2); Eosinophils Absolute Auto 0.1 K/mm3 (0-0.3); Eosinophils Percent Auto 0.3 % (0-4.4); Hematocrit 26.8 % (42.0-52.0); Hemoglobin 8.7 g/dL (14.0-18.0); Immature Granulocyte Absolute 0.12 K/mm3 (0.00-0.031); Immature Granulocyte Percent A 0.6 % (0-0.5); Lymphocytes Absolute Auto 0.77 K/mm3 (0.9-3.2); Lymphocytes Percent Auto 3.9 % (18.3-44.2); Mean Corpuscular HGB Conc 32.5 g/dl (32-36); Mean Corpuscular Hemoglobin 28.5 pg (26-34); Mean Corpuscular Volume 87.9 fl (80-100); Mean Platelet Volume 9.9 fl (7.4-10.4); Monocytes Absolute Auto 1.5 K/mm3 (0.1-0.6); Monocytes Percent Auto 7.6 % (2.6-8.5); Neutrophils Absolute Auto 17.1 K/mm3 (1.3-6.7); Neutrophils Percent Auto 87.5 % (45.5-73.1); Platelet Count Result 439 k/mm3 (150-375); Red Blood Count 3.05 M/mm3 (4.6-6.20); Red Cell Distribution Width 16.2 % (11.5-14.5); White Blood Count 19.6 K/mm3 (4.5-10.0)
[2022-06-16 12:59] LABS: Alanine Aminotransferase 41 U/L (6-50); Albumin Level 3.5 g/dL (3.5-5.1); Alkaline Phosphatase 145 U/L (38-126); Anion Gap 7 mmol/L (8-16); Aspartate Amino Transferase 54 U/L (17-59); Bilirubin,Total 1.1 mg/dL (0.2-1.3); Blood Urea Nitrogen 16 mg/dL (9-20); Calcium 9.1 mg/dL (8.4-10.2); Carbon Dioxide 35 mmol/L (22-30); Chloride 93 mmol/L (98-107); Estimated Glomerular Filt Rate > 60; Glucose 133 mg/dL (65-110); Potassium 2.4 mmol/L (3.4-5.0); Sodium 135 mmol/L (137-145)
[2022-06-16 13:11] LABS: Poikilocytosis 1+ (NORMAL)
[2022-06-16 13:12] LABS: Acanthocytes 1+ (NORMAL); Burr Cells 2+ (NORMAL); Schistocytes None Seen (NORMAL)
--- NOTE | 2022-06-16 13:23 | ECG_ITS ---
Measurements Intervals [place] Rate: 112 P: 68 MN: 145 QRS: 32 QRSD: 93 T: 65 QT: 269 QTc: 369 Interpretive Statements SINUS TACHYCARDIA NONSPECIFIC T-WAVE ABNORMALITY ABNORMAL RHYTHM ECG COMPARED TO ECG 05/19/2022 11:57:49 NO SIGNIFICANT CHANGES Electronically Signed On 06-16-2022 18:20:03 CDT by Ramez Lutz M.D.
[2022-06-16] MEDS: ENTER PT HEIGHT XX (13:31)
[2022-06-16 13:42] LABS: INR 1.2; Prothrombin Time 14.9 Seconds (11.1-14.7)
[2022-06-16 13:43] LABS: Partial Thromboplastin Time 38.1 SECONDS (22.3-36.8)
[2022-06-16] MEDS: SODIUM CHLORIDE 0.9% IV 1,000 ML 999 ML IV CONT (13:46)
[2022-06-16] MEDS: POTASSIUM CHLORIDE 20 MEQ TABLET 40 MEQ PO (13:46)
[2022-06-16 13:48] LABS: Lactic Acid Reflex 1.7 mmol/L (0.7-2.0)
[2022-06-16 13:58] LABS: CRP 21.3 mg/dL (<1.0); Magnesium 2.3 mg/dL (1.6-2.3)
--- NOTE | 2022-06-16 14:38 | ED.RECABL ---
HPI - Recheck/Abnormal Lab/Rx General Chief Complaint: Recheck/Abnormal Lab/Rx Stated Complaint: abnormal ct scan Time Seen by Provider: 06/16/22 13:10 Source: patient, family, RN notes reviewed and old records reviewed Mode of arrival: wheelchair Limitations: no limitations History of Present Illness HPI narrative: This is a 76 year old male who presents from home for treatment of worsening pneumonia. PAtient was admitted to hospitalist last month and he was treated for pneumonia. His started received IV antibiotic in hospital for 6 days and he was discharged on 3 days of oral antibiotics. He has continued to have worsening cough and shortness of breath. His PCP ordered a CT chest today and it showed worsening pneumonia so referred to ER fro IV antibiotics. Patient denies fever, chills, vomiting or diarrhea. He denies chest pain or abdominal pain. Patient reports poor appetitie. Related Data Home Medications Medication Instructions Recorded Confirmed atorvastatin 80 mg tablet 80 mg PO HS 04/20/19 06/16/22 metoprolol tartrate 50 mg tablet 25 mg PO Q12H 04/20/19 06/16/22 aspirin 81 mg tablet,delayed 81 mg PO QHS 08/13/21 06/16/22 release (Adult Low Dose Aspirin) amlodipine 2.5 mg tablet 2.5 mg PO DAILY 05/16/22 06/16/22 donepezil 5 mg tablet 5 mg PO HS 05/16/22 06/16/22 quetiapine 25 mg tablet 50 mg PO QHS 06/16/22 06/16/22 Allergies Allergy/AdvReac Type Severity Reaction Status Date / Time Penicillins Allergy Unknown Seizure Verified 06/16/22 13:34 cyclobenzaprine AdvReac Unknown Hallucinati Verified 06/16/22 13:34 ng oxybutynin AdvReac Unknown Hallucinati Verified 06/16/22 13:34 ng Review of Systems Constitutional: Constitutional: Denies chills, Denies fever(s) and Reports weakness Cardiovascular: Cardiovascular: Denies syncope, Denies rapid heart rate, Denies irregular heart rhythm, Denies leg edema and Denies dyspnea Respiratory: Respiratory: Denies chest congestion, Reports cough, Denies hemoptysis, Denies excessive phlegm production and Reports dyspnea Gastrointestinal: Gastrointestinal: Denies abdominal pain, Denies hematochezia, Denies diarrhea and Denies vomiting Genitourinary: Genitourinary: Denies hematuria, Denies dysuria, Denies penile discharge and Denies testicular pain Musculoskeletal: Musculoskeletal: Denies joint swelling, Denies loss of height and Denies muscle weakness Neurologic: Denies syncope, Denies focal weakness and Denies weakness PMFSH Past Medical History Medical History Angina at rest CAD (coronary artery disease) COPD (chronic obstructive pulmonary disease) HTN (hypertension) Hypercholesterolemia Inguinal hernia Myocardial infarction Obstructive sleep apnea does not use a c- pap Prostate cancer Seizures after taking pcn Tobacco abuse Surgical History Surgical History H/O angioplasty H/O cardiac catheterization H/O heart artery stent 2 H/O hemorrhoidectomy H/O inguinal hernia repair with mesh H/O prostatectomy Hx of appendectomy S/P total hip arthroplasty bilateral Status post implantation of artificial urinary sphincter Family History Family History Other Family history of heart disease in male family member before age 55 Malignant neoplasm of prostate Social History Social History Social History: he is and lives with his . He has 2 children. He is retired from [employer]. He still continues to smoke a pack of cigarettes a day. Code status full code Smoking packs per day: 0.5 Smoking cigarettes per day: 10.0 Years smoked: 60 Smoking pack-years: 30.00 Smoking status: Current every day smoker Tobacco type: cigarettes Second hand tobacco smoke exposure: No Alcohol intake: never Alcohol use det
--- NOTE | 2022-06-16 14:59 | PM.IMHP ---
H&P: HPI History of Present Illness Date/Time: 06/16/22 14:59 Chief Complaint: Abnormal CT Narrative: This is a 76-year-old male patient who was recently discharged from this facility on 05/21/2022 with pneumonia. The patient had been on Levaquin and was sent home on Levaquin which he had completed the course. He had a total of 6 days of IV Levaquin and then he was discharged on 3 days of oral Levaquin. The patient continues to have a worsening cough and shortness of breath. His primary care doctor ordered a CT chest today and found worsening pneumonia and referred the patient to the emergency room for IV antibiotics. He denies any fever chills or nausea vomiting. No chest pain no nausea vomiting or diarrhea. He has been having a poor appetite. He has a history of dementia and his is answering the questions. His white count is now up to 19.6. And his H&H is 8.7 and 26.8 which is his baseline. His potassium was found to be 2.4. The patient was given IV fluids, Levaquin, p.o. potassium, IV potassium and vancomycin in the emergency room. The patient is being admitted to observation status on the date of service of 06/16/2022. Review of Systems Review of Systems: All systems reviewed & are unremarkable except as noted in HPI and below Constitutional: Constitutional: Reports as per HPI and Reports no additional constitutional complaints Eyes: Eyes: Reports as per HPI and Reports no additional eye complaints ENT: Reports system reviewed and no additional complaints, except as documented and Reports Normal hearing present Cardiovascular: Cardiovascular: Reports no additional cardiovascular complaints Respiratory: Respiratory: Reports no additional respiratory complaints and Reports no additional respiratory complaints Gastrointestinal: Gastrointestinal: Reports as per HPI and Reports no additional gastrointestinal complaints Musculoskeletal: Musculoskeletal: Reports no additional musculoskeletal complaints Integumentary/Breasts: Skin/Breast: Reports system reviewed and no additional complaints, except as docu and Reports as per HPI Neurologic: Reports system reviewed and no additional complaints, except as documented, Reports as per HPI and Reports Normal hearing present Psychiatric: Psychiatric: Reports no additional psychiatric complaints and Reports as per HPI Endocrine: Endocrine: Reports no additional endocrine complaints Hematologic/Lymphatic: Hematologic/Lymphatic: Reports no additional hematologic/lymphatic complaints Allergic/Immunologic: Allergic/Immunologic: Reports no additional allergic/immunologic complaints [facility] Past Medical History Medical History Angina at rest CAD (coronary artery disease) COPD (chronic obstructive pulmonary disease) HTN (hypertension) Hypercholesterolemia Inguinal hernia Myocardial infarction Obstructive sleep apnea does not use a c- pap Prostate cancer Seizures after taking pcn Tobacco abuse Surgical History Surgical History H/O angioplasty H/O cardiac catheterization H/O heart artery stent 2 H/O hemorrhoidectomy H/O inguinal hernia repair with mesh H/O prostatectomy Hx of appendectomy S/P total hip arthroplasty bilateral Status post implantation of artificial urinary sphincter Family History Family History Other Family history of heart disease in male family member before age 55 Malignant neoplasm of prostate Social History Social History Social History: he is and lives with his . He has 2 children. He is retired from [employer]. He still continues to smoke a pack of cigarettes a day. Code status full code Smoking packs per day: 0.5 Smoking cigarettes per day: 10.0 Years smoked: 60 Smoking pack-years: 30.00 Carlottai
[2022-06-16] MEDS: POTASSIUM CHLORIDE INJ 40 MEQ in SODIUM CHLORIDE 0.9% IV 500 ML 130 MEQ IVPB (15:04)
[2022-06-16] MEDS: NICOTINE (*PBKC) 14 MG PATCH 1 PATCH TRANSDERM (17:59)
--- NOTE | 2022-06-16 18:46 | PC.NURSE ---
This patient, Villa Du, was admitted to IMU Room 213-01 in ED at 1735. Patient/family oriented to hospital policies and general routines including ID bracelet, bed and alarms, visiting hours, pain management, procedures, bathroom and other care routines, personal items, smoking policy, room service/diet, and visiting hours. Information on how to activate the Rapid Response Team has been discussed. Patient/Family are encouraged to report perceived risks to care and to ask questions if they do not understand what they are told or what they should do.
[2022-06-16] MEDS: LACTATED RINGERS 1,000 ML 125 ML IV CONT (19:01)
[2022-06-16 23:12] LABS: Appearance Urine Turbid (Clear); Bacteria Urine None Seen /hpf; Bilirubin Urine Negative (Negative); Blood Urine 1+ (Negative); Color Urine Dark Yellow (Yellow); Glucose Urine UA Negative (Negative); Ketones Urine Negative (Negative); Leukocyte Esterase Ur Negative LEU/UL (Negative); Need Manual Microscopic Reviewed; Nitrate Urine Negative (Negative); Protein Urine 2+ mg/dL (Negative); RBC Urine 0-2 /hpf (0-2); Specific Grav Ur 1.021 (1.001-1.035); Squamous Epithelial Cell Urine None seen /hpf (Few); WBC Urine 0-5 /hpf
[2022-06-16 23:17] LABS: Add Urine Microscopic? YES
[2022-06-16 23:47] LABS: Anion Gap 4 mmol/L (8-16); Blood Urea Nitrogen 13 mg/dL (9-20); Calcium 8.1 mg/dL (8.4-10.2); Carbon Dioxide 29 mmol/L (22-30); Chloride 99 mmol/L (98-107); Estimated CRCL calculation 45 ml/min; Estimated Glomerular Filt Rate > 60; Glucose 112 mg/dL (65-110); Potassium 3.1 mmol/L (3.4-5.0); Sodium 132 mmol/L (137-145)
[2022-06-17] VITALS (24 sets, daily range): BP systolic 106–143; BP diastolic 56–65; PULSE 80–117; RESP 18–24; TEMP 36.9–37.4; O2SAT 91–100; BMI 19.8
[2022-06-17] MEDS: POTASSIUM CHLORIDE INJ 40 MEQ in SODIUM CHLORIDE 0.9% IV 500 ML 130 MEQ IVPB (01:48)
[2022-06-17] MEDS: IPRATROPIUM BR 0.02% INH SOLN 0.5 MG/2.5 ML VIAL INHALATION ×4 (02:57→20:47)
[2022-06-17] MEDS: LEVALBUTEROL NEB 1.25 MG/3 ML 0.63 MG INHALATION ×4 (02:57→20:48)
[2022-06-17 08:28] LABS: Basophils Percent Auto 0.2 % (0.2-1.2); Eosinophils Absolute Auto 0.1 K/mm3 (0-0.3); Eosinophils Percent Auto 0.5 % (0-4.4); Hematocrit 28.6 % (42.0-52.0); Immature Granulocyte Absolute 0.06 K/mm3 (0.00-0.031); Immature Granulocyte Percent A 0.5 % (0-0.5); Lymphocytes Absolute Auto 0.61 K/mm3 (0.9-3.2); Lymphocytes Percent Auto 4.9 % (18.3-44.2); Mean Corpuscular HGB Conc 31.5 g/dl (32-36); Mean Corpuscular Hemoglobin 29.4 pg (26-34); Mean Corpuscular Volume 93.5 fl (80-100); Mean Platelet Volume 10.5 fl (7.4-10.4); Monocytes Percent Auto 8.2 % (2.6-8.5); Neutrophils Absolute Auto 10.6 K/mm3 (1.3-6.7); Neutrophils Percent Auto 85.7 % (45.5-73.1); Platelet Count Result 368 k/mm3 (150-375); Red Blood Count 3.06 M/mm3 (4.6-6.20); Red Cell Distribution Width 16.2 % (11.5-14.5); White Blood Count 12.4 K/mm3 (4.5-10.0)
[2022-06-17 09:01] LABS: Alanine Aminotransferase 40 U/L (6-50); Alkaline Phosphatase 120 U/L (38-126); Anion Gap 7 mmol/L (8-16); Aspartate Amino Transferase 56 U/L (17-59); Bilirubin,Total 0.8 mg/dL (0.2-1.3); Blood Urea Nitrogen 12 mg/dL (9-20); Calcium 8.3 mg/dL (8.4-10.2); Carbon Dioxide 26 mmol/L (22-30); Chloride 102 mmol/L (98-107); Estimated CRCL calculation 51 ml/min; Estimated Glomerular Filt Rate > 60; Glucose 119 mg/dL (65-110); Magnesium 2.1 mg/dL (1.6-2.3); Potassium 3.2 mmol/L (3.4-5.0); Sodium 135 mmol/L (137-145)
[2022-06-17 09:10] LABS: Crenated RBC 2+ (NORMAL); Hypochromasia 1+ (NORMAL); Platelet Estimate Adequate (Adequate); Schistocytes None Seen (NORMAL)
[2022-06-17] MEDS: METOPROLOL TARTRATE 25 MG TABLET PO ×2 (09:43→20:01)
[2022-06-17] MEDS: ASPIRIN 81 MG ENTERIC TABLET PO (09:43)
[2022-06-17] MEDS: NICOTINE (*PBKC) 21 MG PATCH 1 PATCH TRANSDERM (09:44)
[2022-06-17] MEDS: PANTOPRAZOLE 40 MG TABLET PO ×2 (09:44→17:20)
[2022-06-17] MEDS: amLODIPine BESYLATE 2.5 MG TABLET PO (09:44)
[2022-06-17] MEDS: POTASSIUM CHLORIDE 20 MEQ PACKET (FOR LIQUID) PO ×2 (09:45→17:20)
--- NOTE | 2022-06-17 14:01 | PM.IMPN ---
Progress Note: A&P Assessment and Plan (1) Pneumonia: Code(s): J18.9 - Pneumonia, unspecified organism Status: Acute Assessment and Plan: The patient was discharged from here last month with pneumonia. The patient had been treated with Levaquin. The patient has a penicillin allergy. The patient was started on vancomycin. Sputum and blood cultures are pending. Continue with nebulizer treatments. May consider consulting Infectious Disease pharmacist. Tailor antibiotics results cultures and sensitivity. Check lactic in the a.m.. Patient has leukocytosis with white count of 19.6. The patient is afebrile at this time. He also has tachycardia. His blood pressure is 137/55. 06/17/2022 interval history: Recently patient was treated for pneumonia and discharged home on Levaquin however patient presented with complaint of shortness of breath and CT scan showing necrotizing pneumonia patient is placed on Levaquin and vancomycin, patient is a poor historian, his is present in the room states feel little better, will follow-up on blood culture and MRSA swab, will continue the present management and repeat chest x-ray and 2 days to further evaluate, once clinically stable will have a PT OT evaluate the patient and further recommendation to follow (2) Hypokalemia: Code(s): E87.6 - Hypokalemia Status: Acute Assessment and Plan: Patient needs to be on daily potassium. The patient's potassium was found to be 2.4. The patient appears to be chronically low. The patient was given p.o. and IV potassium today. Recheck potassium tonight and repeat potassium in the a.m. as well as magnesium. I did start the patient on a daily dose of potassium. (3) Depression: Code(s): F32.A - Depression, unspecified Status: Acute Assessment and Plan: Continue with home medication. (4) HTN (hypertension): Code(s): I10 - Essential (primary) hypertension Status: Acute Assessment and Plan: Continue with amlodipine and metoprolol. Blood pressure is currently 137/55 and pulse is 109. (5) Hypercholesterolemia: Code(s): E78.00 - Pure hypercholesterolemia, unspecified Status: Acute Assessment and Plan: Continue with atorvastatin (6) Tobacco abuse: Code(s): Z72.0 - Tobacco use Status: Acute Assessment and Plan: We spoke about smoking cessation for approximately 5 minutes. Nicotine patch has been ordered. (7) Senile dementia with behavioral disturbance: Code(s): F03.91 - Unspecified dementia, unspecified severity, with behavioral disturbance Status: Acute Assessment and Plan: The patient is on Aricept continue with that. Although the patient is refusing his medications tonight. I did order p.r.n. Ativan and a event that the patient becomes aggressive. Patient is also on Seroquel home and he is refusing his medications tonight. Subjective Date/time seen: 06/17/22 14:[address] HPI Narrative: This is a 76-year-old male patient who was recently discharged from this facility on 05/21/2022 with pneumonia.? The patient had been on Levaquin and was sent home on Levaquin which he had completed the course.? He had a total of 6 days of IV Levaquin and then he was discharged on 3 days of oral Levaquin.? The patient continues to have a worsening cough and shortness of breath.? His primary care doctor ordered a CT chest today and found worsening pneumonia and referred the patient to the emergency room for IV antibiotics.? He denies any fever chills or nausea vomiting.? No chest pain no nausea vomiting or diarrhea.? He has been having a poor appetite.? He has a history of dementia and his is answering the questions.? His white count is now up to 19.6.? And his H&H is 8.7 and 26.8 which is his baseline.? His potassium was found to be 2.4.? The patient was given IV fluids, Levaquin, p.o. potassium, IV potassium and vancomycin in the emergency room.
[2022-06-17] MEDS: LACTATED RINGERS 1,000 ML 125 ML IV CONT (18:06)
[2022-06-17] MEDS: LORazepam INJ (*CRX) 2 MG/ML VIAL 0.5 MG IV PUSH (19:59)
[2022-06-17] MEDS: DONEPEZIL HCL 5 MG TABLET PO (20:00)
[2022-06-17] MEDS: ATORVASTATIN 40 MG TABLET 80 MG PO (20:00)
[2022-06-17] MEDS: QUEtiapine FUMARATE 25 MG TABLET PO (20:00)
[2022-06-18] VITALS (22 sets, daily range): BP systolic 106–134; BP diastolic 50–98; PULSE 98–111; RESP 18–30; TEMP 36.8–37.2; O2SAT 90–99
[2022-06-18] MEDS: IPRATROPIUM BR 0.02% INH SOLN 0.5 MG/2.5 ML VIAL INHALATION ×4 (03:05→20:13)
[2022-06-18] MEDS: LEVALBUTEROL NEB 1.25 MG/3 ML 0.63 MG INHALATION ×4 (03:05→20:13)
[2022-06-18 05:20] LABS: Hematocrit 24.4 % (42.0-52.0); Hemoglobin 7.7 g/dL (14.0-18.0); Mean Corpuscular HGB Conc 31.6 g/dl (32-36); Mean Corpuscular Hemoglobin 29.1 pg (26-34); Mean Corpuscular Volume 92.1 fl (80-100); Mean Platelet Volume 9.8 fl (7.4-10.4); Platelet Count Result 383 k/mm3 (150-375); Red Blood Count 2.65 M/mm3 (4.6-6.20); Red Cell Distribution Width 16.3 % (11.5-14.5); White Blood Count 12.4 K/mm3 (4.5-10.0)
[2022-06-18 05:29] LABS: Anion Gap 5 mmol/L (8-16); Blood Urea Nitrogen 11 mg/dL (9-20); Calcium 8.4 mg/dL (8.4-10.2); Carbon Dioxide 29 mmol/L (22-30); Chloride 103 mmol/L (98-107); Estimated CRCL calculation 53 ml/min; Estimated Glomerular Filt Rate > 60; Glucose 123 mg/dL (65-110); Potassium 2.9 mmol/L (3.4-5.0); Sodium 137 mmol/L (137-145)
[2022-06-18] MEDS: LACTATED RINGERS 1,000 ML 125 ML IV CONT ×2 (05:58→17:02)
[2022-06-18] MEDS: METOPROLOL TARTRATE 25 MG TABLET PO ×2 (08:51→19:59)
[2022-06-18] MEDS: PANTOPRAZOLE 40 MG TABLET PO ×2 (08:51→17:00)
[2022-06-18] MEDS: ASPIRIN 81 MG ENTERIC TABLET PO (08:51)
[2022-06-18] MEDS: amLODIPine BESYLATE 2.5 MG TABLET PO (08:52)
[2022-06-18] MEDS: POTASSIUM CHLORIDE 20 MEQ PACKET (FOR LIQUID) PO ×2 (08:53→17:01)
[2022-06-18] MEDS: NICOTINE (*PBKC) 21 MG PATCH 1 PATCH TRANSDERM (08:53)
[2022-06-18] MEDS: POTASSIUM CHLORIDE INJ 40 MEQ in SODIUM CHLORIDE 0.9% IV 500 ML 130 MEQ IVPB (10:09)
--- NOTE | 2022-06-18 11:33 | PC.NURSE ---
On 06/18/22, the student, [Frederic Martinez], provided care and completed [facility] documentation on this patient. I have reviewed the student's documentation and agree with the findings.
--- NOTE | 2022-06-18 15:58 | PM.IMPN ---
Progress Note: A&P Assessment and Plan (1) Pneumonia: Code(s): J18.9 - Pneumonia, unspecified organism Status: Acute Assessment and Plan: The patient was discharged from here last month with pneumonia. The patient had been treated with Levaquin. The patient has a penicillin allergy. The patient was started on vancomycin. Sputum and blood cultures are pending. Continue with nebulizer treatments. May consider consulting Infectious Disease pharmacist. Tailor antibiotics results cultures and sensitivity. Check lactic in the a.m.. Patient has leukocytosis with white count of 19.6. The patient is afebrile at this time. He also has tachycardia. His blood pressure is 137/55. 06/18/2022 interval history: Recently patient was treated for pneumonia and discharged home on Levaquin however patient presented with complaint of shortness of breath and CT scan showing necrotizing pneumonia patient is placed on Levaquin and vancomycin, patient is a poor historian, will follow-up on blood culture and MRSA swab is negative, will stop vancomycin will continue the present management and repeat chest x-ray and tomorrow to further evaluate, once clinically stable will have a PT OT evaluate the patient and further recommendation to follow (2) Hypokalemia: Code(s): E87.6 - Hypokalemia Status: Acute Assessment and Plan: Patient needs to be on daily potassium. The patient's potassium was found to be 2.4. The patient appears to be chronically low. The patient was given p.o. and IV potassium today. Recheck potassium tonight and repeat potassium in the a.m. as well as magnesium. I did start the patient on a daily dose of potassium. (3) Depression: Code(s): F32.A - Depression, unspecified Status: Acute Assessment and Plan: Continue with home medication. (4) HTN (hypertension): Code(s): I10 - Essential (primary) hypertension Status: Acute Assessment and Plan: Continue with amlodipine and metoprolol. Blood pressure is currently 137/55 and pulse is 109. (5) Hypercholesterolemia: Code(s): E78.00 - Pure hypercholesterolemia, unspecified Status: Acute Assessment and Plan: Continue with atorvastatin (6) Tobacco abuse: Code(s): Z72.0 - Tobacco use Status: Acute Assessment and Plan: We spoke about smoking cessation for approximately 5 minutes. Nicotine patch has been ordered. (7) Senile dementia with behavioral disturbance: Code(s): F03.91 - Unspecified dementia, unspecified severity, with behavioral disturbance Status: Acute Assessment and Plan: The patient is on Aricept continue with that. Although the patient is refusing his medications tonight. I did order p.r.n. Ativan and a event that the patient becomes aggressive. Patient is also on Seroquel home and he is refusing his medications tonight. Subjective Date/time seen: 06/18/22 15:58 The patient was discharged from here last month with pneumonia. The patient had been treated with Levaquin. The patient has a penicillin allergy. The patient was started on vancomycin. Sputum and blood cultures are pending. Continue with nebulizer treatments. May consider consulting Infectious Disease pharmacist. Tailor antibiotics results cultures and sensitivity. Check lactic in the a.m.. Patient has leukocytosis with white count of 19.6. The patient is afebrile at this time. He also has tachycardia. His blood pressure is 137/55. 06/18/2022 interval history: Recently patient was treated for pneumonia and discharged home on Levaquin however patient presented with complaint of shortness of breath and CT scan showing necrotizing pneumonia patient is placed on Levaquin and vancomycin, patient is a poor historian, will follow-up on blood culture and MRSA swab is negative, will stop vancomycin will continue the present management and repeat chest x-ray and tomorrow to further evaluate, once clinical
[2022-06-18] MEDS: levoFLOXacin 500 MG/D5W 100 ML 500 MG/100 ML BAG 100 MG IVPB (17:47)
[2022-06-18] MEDS: ATORVASTATIN 40 MG TABLET 80 MG PO (19:58)
[2022-06-18] MEDS: QUEtiapine FUMARATE 25 MG TABLET PO (19:59)
[2022-06-18] MEDS: DONEPEZIL HCL 5 MG TABLET PO (19:59)
[2022-06-18] MEDS: LORazepam INJ (*CRX) 2 MG/ML VIAL 0.5 MG IV PUSH (20:52)
[2022-06-19] VITALS (18 sets, daily range): BP systolic 128–146; BP diastolic 69–86; PULSE 92–115; RESP 18–24; TEMP 36.5–37.3; O2SAT 93–97
[2022-06-19] MEDS: LACTATED RINGERS 1,000 ML 125 ML IV CONT ×3 (02:05→18:38)
[2022-06-19] MEDS: LEVALBUTEROL NEB 1.25 MG/3 ML 0.63 MG INHALATION ×4 (02:30→20:50)
[2022-06-19] MEDS: IPRATROPIUM BR 0.02% INH SOLN 0.5 MG/2.5 ML VIAL INHALATION ×4 (02:30→20:50)
[2022-06-19 06:22] LABS: Hematocrit 24.8 % (42.0-52.0); Hemoglobin 7.9 g/dL (14.0-18.0); Mean Corpuscular HGB Conc 31.9 g/dl (32-36); Mean Corpuscular Hemoglobin 29.4 pg (26-34); Mean Corpuscular Volume 92.2 fl (80-100); Mean Platelet Volume 9.7 fl (7.4-10.4); Platelet Count Result 405 k/mm3 (150-375); Red Blood Count 2.69 M/mm3 (4.6-6.20); Red Cell Distribution Width 16.6 % (11.5-14.5); White Blood Count 13.1 K/mm3 (4.5-10.0)
[2022-06-19 07:04] LABS: Anion Gap 3 mmol/L (8-16); Blood Urea Nitrogen 9 mg/dL (9-20); Calcium 8.4 mg/dL (8.4-10.2); Carbon Dioxide 31 mmol/L (22-30); Chloride 104 mmol/L (98-107); Estimated CRCL calculation 60 ml/min; Estimated Glomerular Filt Rate > 60; Glucose 102 mg/dL (65-110); Magnesium 1.8 mg/dL (1.6-2.3); Potassium 3.4 mmol/L (3.4-5.0); Sodium 138 mmol/L (137-145)
[2022-06-19] MEDS: FUROSEMIDE INJ 40 MG/4 ML VIAL 20 MG IV PUSH (11:21)
[2022-06-19] MEDS: methylPREDNISolone SOD SUCC 40 MG VIAL IV PUSH (11:22)
--- NOTE | 2022-06-19 11:38 | PM.IMPN ---
Progress Note: A&P Assessment and Plan (1) Pneumonia: Code(s): J18.9 - Pneumonia, unspecified organism Status: Acute Assessment and Plan: The patient was discharged from here last month with pneumonia. The patient had been treated with Levaquin. The patient has a penicillin allergy. The patient was started on vancomycin. Sputum and blood cultures are pending. Continue with nebulizer treatments. May consider consulting Infectious Disease pharmacist. Tailor antibiotics results cultures and sensitivity. Check lactic in the a.m.. Patient has leukocytosis with white count of 19.6. The patient is afebrile at this time. He also has tachycardia. His blood pressure is 137/55. 06/19/2022 interval history: Recently patient was treated for pneumonia and discharged home on Levaquin however patient presented with complaint of shortness of breath and CT scan showing necrotizing pneumonia patient is placed on Levaquin and vancomycin, patient is a poor historian, will follow-up on blood culture and MRSA swab is negative, will stop vancomycin will continue the present management and repeat chest x-ray today did not show significant change, however patient sounds more congested, will give Lasix 20mg IV and methyl prednisone 40mg qd, will monitor, once clinically stable will have a PT OT evaluate the patient and further recommendation to follow (2) Hypokalemia: Code(s): E87.6 - Hypokalemia Status: Acute Assessment and Plan: Patient needs to be on daily potassium. The patient's potassium was found to be 2.4. The patient appears to be chronically low. The patient was given p.o. and IV potassium today. Recheck potassium tonight and repeat potassium in the a.m. as well as magnesium. I did start the patient on a daily dose of potassium. (3) Depression: Code(s): F32.A - Depression, unspecified Status: Acute Assessment and Plan: Continue with home medication. (4) HTN (hypertension): Code(s): I10 - Essential (primary) hypertension Status: Acute Assessment and Plan: Continue with amlodipine and metoprolol. Blood pressure is currently 137/55 and pulse is 109. (5) Hypercholesterolemia: Code(s): E78.00 - Pure hypercholesterolemia, unspecified Status: Acute Assessment and Plan: Continue with atorvastatin (6) Tobacco abuse: Code(s): Z72.0 - Tobacco use Status: Acute Assessment and Plan: We spoke about smoking cessation for approximately 5 minutes. Nicotine patch has been ordered. (7) Senile dementia with behavioral disturbance: Code(s): F03.91 - Unspecified dementia, unspecified severity, with behavioral disturbance Status: Acute Assessment and Plan: The patient is on Aricept continue with that. Although the patient is refusing his medications tonight. I did order p.r.n. Ativan and a event that the patient becomes aggressive. Patient is also on Seroquel home and he is refusing his medications tonight. Subjective Date/time seen: 06/19/22 11:38 The patient was discharged from here last month with pneumonia. The patient had been treated with Levaquin. The patient has a penicillin allergy. The patient was started on vancomycin. Sputum and blood cultures are pending. Continue with nebulizer treatments. May consider consulting Infectious Disease pharmacist. Tailor antibiotics results cultures and sensitivity. Check lactic in the a.m.. Patient has leukocytosis with white count of 19.6. The patient is afebrile at this time. He also has tachycardia. His blood pressure is 137/55. 06/19/2022 interval history: Recently patient was treated for pneumonia and discharged home on Levaquin however patient presented with complaint of shortness of breath and CT scan showing necrotizing pneumonia patient is placed on Levaquin and vancomycin, patient is a poor historian, will follow-up on blood culture and MRSA swab is negative, will stop vancomyc
[2022-06-19] MEDS: PANTOPRAZOLE 40 MG TABLET PO (15:00)
[2022-06-19] MEDS: ASPIRIN 81 MG ENTERIC TABLET PO (15:00)
[2022-06-19] MEDS: amLODIPine BESYLATE 2.5 MG TABLET PO (15:01)
[2022-06-19] MEDS: POTASSIUM CHLORIDE 20 MEQ PACKET (FOR LIQUID) PO (15:01)
--- NOTE | 2022-06-19 15:01 | PCSTNOTE ---
Modified barium swallow study completed. Patient was given trials of thin liquid, mildly thick liquid, and pureed consistency. Overall weakness of swallowing mechanism evident, including reduced labial seal, reduced linqual movment, reduced laryngeal elevation, reduced laryngeal aduction, reduced tongue base retraction, reduced pharyngeal squeeze and trace/mild residue in pyriform sinuses. However, no penetration or aspiration were observed. Due to patient's current medical condition and dementia, speech therapy is not recommended. Swallowing precaution recommendations were placed in chart. Thank you for the referral of this patient.
[2022-06-19] MEDS: levoFLOXacin 500 MG/D5W 100 ML 500 MG/100 ML BAG 100 MG IVPB (18:25)
[2022-06-19] MEDS: LORazepam INJ (*CRX) 2 MG/ML VIAL 0.5 MG IV PUSH ×2 (18:25→22:54)
[2022-06-19] MEDS: QUEtiapine FUMARATE 25 MG TABLET PO (20:19)
[2022-06-19] MEDS: METOPROLOL TARTRATE 25 MG TABLET PO (20:19)
[2022-06-19] MEDS: ATORVASTATIN 40 MG TABLET 80 MG PO (20:19)
[2022-06-19] MEDS: DONEPEZIL HCL 5 MG TABLET PO (20:19)
--- NOTE | 2022-06-19 21:29 | PCRCNOTE ---
1 minute into patient's updraft treatment, he removed the mask and would not let RT reapply.
[2022-06-20] VITALS (22 sets, daily range): BP systolic 115–136; BP diastolic 60–75; PULSE 69–107; RESP 18–20; TEMP 36.3–37.2; O2SAT 91–96
[2022-06-20] MEDS: LEVALBUTEROL NEB 1.25 MG/3 ML 0.63 MG INHALATION ×4 (02:05→21:05)
[2022-06-20] MEDS: IPRATROPIUM BR 0.02% INH SOLN 0.5 MG/2.5 ML VIAL INHALATION ×4 (02:05→21:06)
[2022-06-20] MEDS: LACTATED RINGERS 1,000 ML 125 ML IV CONT ×3 (05:54→22:48)
[2022-06-20 06:22] LABS: Hemoglobin 8.3 g/dL (14.0-18.0); Mean Corpuscular HGB Conc 30.7 g/dl (32-36); Mean Corpuscular Hemoglobin 27.8 pg (26-34); Mean Corpuscular Volume 90.3 fl (80-100); Mean Platelet Volume 9.8 fl (7.4-10.4); Platelet Count Result 433 k/mm3 (150-375); Red Blood Count 2.99 M/mm3 (4.6-6.20); Red Cell Distribution Width 16.6 % (11.5-14.5); White Blood Count 11.8 K/mm3 (4.5-10.0)
[2022-06-20 07:19] LABS: Anion Gap 3 mmol/L (8-16); Blood Urea Nitrogen 12 mg/dL (9-20); Calcium 8.5 mg/dL (8.4-10.2); Carbon Dioxide 32 mmol/L (22-30); Chloride 103 mmol/L (98-107); Estimated CRCL calculation 61 ml/min; Estimated Glomerular Filt Rate > 60; Glucose 105 mg/dL (65-110); Magnesium 1.9 mg/dL (1.6-2.3); Potassium 3.8 mmol/L (3.4-5.0); Sodium 138 mmol/L (137-145)
[2022-06-20] MEDS: METOPROLOL TARTRATE 25 MG TABLET PO ×2 (08:54→20:11)
[2022-06-20] MEDS: amLODIPine BESYLATE 2.5 MG TABLET PO (08:54)
[2022-06-20] MEDS: ASPIRIN 81 MG ENTERIC TABLET PO (08:54)
[2022-06-20] MEDS: methylPREDNISolone SOD SUCC 40 MG VIAL IV PUSH (08:54)
[2022-06-20] MEDS: PANTOPRAZOLE 40 MG TABLET PO (08:55)
[2022-06-20] MEDS: NICOTINE (*PBKC) 21 MG PATCH 1 PATCH TRANSDERM (08:55)
[2022-06-20] MEDS: POTASSIUM CHLORIDE 20 MEQ PACKET (FOR LIQUID) PO ×2 (08:56→18:28)
--- NOTE | 2022-06-20 10:08 | PM.IMPN ---
Progress Note: A&P Assessment and Plan (1) Pneumonia: Code(s): J18.9 - Pneumonia, unspecified organism Status: Acute Assessment and Plan: The patient was discharged from here last month with pneumonia. The patient had been treated with Levaquin. The patient has a penicillin allergy. The patient was started on vancomycin. Sputum and blood cultures are pending. Continue with nebulizer treatments. May consider consulting Infectious Disease pharmacist. Tailor antibiotics results cultures and sensitivity. Check lactic in the a.m.. Patient has leukocytosis with white count of 19.6. The patient is afebrile at this time. He also has tachycardia. His blood pressure is 137/55. 06/20/2022 interval history: Recently patient was treated for pneumonia and discharged home on Levaquin however patient presented with complaint of shortness of breath and CT scan showing necrotizing pneumonia patient is placed on Levaquin and vancomycin, patient is a poor historian, will follow-up on blood culture and MRSA swab is negative, will stop vancomycin will continue the present management and repeat chest x-ray on 06/19 did not show significant change, however patient sounds more congested, will give Lasix 20mg IV and methyl prednisone 40mg qd, will repeat chest x-ray on June 22 will monitor, once clinically stable will have a PT OT evaluate the patient and further recommendation to follow, patient is present in the room. (2) Hypokalemia: Code(s): E87.6 - Hypokalemia Status: Acute Assessment and Plan: Patient needs to be on daily potassium. The patient's potassium was found to be 2.4. The patient appears to be chronically low. The patient was given p.o. and IV potassium today. Recheck potassium tonight and repeat potassium in the a.m. as well as magnesium. I did start the patient on a daily dose of potassium. (3) Depression: Code(s): F32.A - Depression, unspecified Status: Acute Assessment and Plan: Continue with home medication. (4) HTN (hypertension): Code(s): I10 - Essential (primary) hypertension Status: Acute Assessment and Plan: Continue with amlodipine and metoprolol. Blood pressure is currently 137/55 and pulse is 109. (5) Hypercholesterolemia: Code(s): E78.00 - Pure hypercholesterolemia, unspecified Status: Acute Assessment and Plan: Continue with atorvastatin (6) Tobacco abuse: Code(s): Z72.0 - Tobacco use Status: Acute Assessment and Plan: We spoke about smoking cessation for approximately 5 minutes. Nicotine patch has been ordered. (7) Senile dementia with behavioral disturbance: Code(s): F03.91 - Unspecified dementia, unspecified severity, with behavioral disturbance Status: Acute Assessment and Plan: The patient is on Aricept continue with that. Although the patient is refusing his medications tonight. I did order p.r.n. Ativan and a event that the patient becomes aggressive. Patient is also on Seroquel home and he is refusing his medications tonight. Subjective Date/time seen: 06/20/22 10:08 The patient was discharged from here last month with pneumonia. The patient had been treated with Levaquin. The patient has a penicillin allergy. The patient was started on vancomycin. Sputum and blood cultures are pending. Continue with nebulizer treatments. May consider consulting Infectious Disease pharmacist. Tailor antibiotics results cultures and sensitivity. Check lactic in the a.m.. Patient has leukocytosis with white count of 19.6. The patient is afebrile at this time. He also has tachycardia. His blood pressure is 137/55. 06/20/2022 interval history: Recently patient was treated for pneumonia and discharged home on Levaquin however patient presented with complaint of shortness of breath and CT scan showing necrotizing pneumonia patient is placed on Levaquin and vancomycin, patient is a poo
[2022-06-20] MEDS: levoFLOXacin 500 MG/D5W 100 ML 500 MG/100 ML BAG 100 MG IVPB (18:28)
[2022-06-20] MEDS: DONEPEZIL HCL 5 MG TABLET PO (20:11)
[2022-06-20] MEDS: ATORVASTATIN 40 MG TABLET 80 MG PO (20:11)
[2022-06-20] MEDS: QUEtiapine FUMARATE 25 MG TABLET PO (20:11)
[2022-06-21] VITALS (20 sets, daily range): BP systolic 104–148; BP diastolic 67–85; PULSE 72–106; RESP 14–20; TEMP 36.2–36.8; O2SAT 91–96
[2022-06-21] MEDS: LEVALBUTEROL NEB 1.25 MG/3 ML 0.63 MG INHALATION ×4 (01:42→21:46)
[2022-06-21] MEDS: IPRATROPIUM BR 0.02% INH SOLN 0.5 MG/2.5 ML VIAL INHALATION ×4 (01:42→21:47)
[2022-06-21 05:48] LABS: Hematocrit 25.9 % (42.0-52.0); Mean Corpuscular HGB Conc 30.9 g/dl (32-36); Mean Corpuscular Volume 90.6 fl (80-100); Mean Platelet Volume 9.6 fl (7.4-10.4); Platelet Count Result 410 k/mm3 (150-375); Red Blood Count 2.86 M/mm3 (4.6-6.20); Red Cell Distribution Width 16.8 % (11.5-14.5); White Blood Count 11.9 K/mm3 (4.5-10.0)
[2022-06-21 06:00] LABS: Anion Gap -1 mmol/L (8-16); Blood Urea Nitrogen 11 mg/dL (9-20); Calcium 8.6 mg/dL (8.4-10.2); Carbon Dioxide 34 mmol/L (22-30); Chloride 106 mmol/L (98-107); Estimated CRCL calculation 57 ml/min; Estimated Glomerular Filt Rate > 60; Glucose 97 mg/dL (65-110); Magnesium 1.9 mg/dL (1.6-2.3); Potassium 3.4 mmol/L (3.4-5.0); Sodium 139 mmol/L (137-145)
[2022-06-21] MEDS: LACTATED RINGERS 1,000 ML 125 ML IV CONT ×2 (06:57→16:43)
[2022-06-21] MEDS: PANTOPRAZOLE 40 MG TABLET PO ×2 (08:36→16:41)
[2022-06-21] MEDS: amLODIPine BESYLATE 2.5 MG TABLET PO (08:37)
[2022-06-21] MEDS: methylPREDNISolone SOD SUCC 40 MG VIAL IV PUSH (08:37)
[2022-06-21] MEDS: NICOTINE (*PBKC) 21 MG PATCH 1 PATCH TRANSDERM (08:37)
[2022-06-21] MEDS: METOPROLOL TARTRATE 25 MG TABLET PO ×2 (08:37→20:22)
[2022-06-21] MEDS: ASPIRIN 81 MG ENTERIC TABLET PO (08:37)
[2022-06-21] MEDS: POTASSIUM CHLORIDE 20 MEQ PACKET (FOR LIQUID) PO ×2 (08:39→16:41)
--- NOTE | 2022-06-21 10:12 | PM.IMPN ---
Progress Note: A&P Assessment and Plan (1) Pneumonia: Code(s): J18.9 - Pneumonia, unspecified organism Status: Acute Assessment and Plan: The patient was discharged from here last month with pneumonia. The patient had been treated with Levaquin. The patient has a penicillin allergy. The patient was started on vancomycin. Sputum and blood cultures are pending. Continue with nebulizer treatments. May consider consulting Infectious Disease pharmacist. Tailor antibiotics results cultures and sensitivity. Check lactic in the a.m.. Patient has leukocytosis with white count of 19.6. The patient is afebrile at this time. He also has tachycardia. His blood pressure is 137/55. 06/21/2022 interval history: Recently patient was treated for pneumonia and discharged home on Levaquin however patient presented with complaint of shortness of breath and CT scan showing necrotizing pneumonia patient is placed on Levaquin and vancomycin, patient is a poor historian, will follow-up on blood culture and MRSA swab is negative, will stop vancomycin will continue the present management and repeat chest x-ray on 06/19 did not show significant change, however patient sounded more congested, gave Lasix 20mg IV x1, and methyl prednisone 40mg qd, today patient is feeling much better it sounds much better, will continue present management, will repeat chest x-ray on June 22 will monitor, once clinically stable will have a PT OT evaluate the patient and further recommendation to follow, patient is present in the room. (2) Hypokalemia: Code(s): E87.6 - Hypokalemia Status: Acute Assessment and Plan: Patient needs to be on daily potassium. The patient's potassium was found to be 2.4. The patient appears to be chronically low. The patient was given p.o. and IV potassium today. Recheck potassium tonight and repeat potassium in the a.m. as well as magnesium. I did start the patient on a daily dose of potassium. (3) Depression: Code(s): F32.A - Depression, unspecified Status: Acute Assessment and Plan: Continue with home medication. (4) HTN (hypertension): Code(s): I10 - Essential (primary) hypertension Status: Acute Assessment and Plan: Continue with amlodipine and metoprolol. Blood pressure is currently 137/55 and pulse is 109. (5) Hypercholesterolemia: Code(s): E78.00 - Pure hypercholesterolemia, unspecified Status: Acute Assessment and Plan: Continue with atorvastatin (6) Tobacco abuse: Code(s): Z72.0 - Tobacco use Status: Acute Assessment and Plan: We spoke about smoking cessation for approximately 5 minutes. Nicotine patch has been ordered. (7) Senile dementia with behavioral disturbance: Code(s): F03.91 - Unspecified dementia, unspecified severity, with behavioral disturbance Status: Acute Assessment and Plan: The patient is on Aricept continue with that. Although the patient is refusing his medications tonight. I did order p.r.n. Ativan and a event that the patient becomes aggressive. Patient is also on Seroquel home and he is refusing his medications tonight. Subjective Date/time seen: 06/21/22 10:12 The patient was discharged from here last month with pneumonia. The patient had been treated with Levaquin. The patient has a penicillin allergy. The patient was started on vancomycin. Sputum and blood cultures are pending. Continue with nebulizer treatments. May consider consulting Infectious Disease pharmacist. Tailor antibiotics results cultures and sensitivity. Check lactic in the a.m.. Patient has leukocytosis with white count of 19.6. The patient is afebrile at this time. He also has tachycardia. His blood pressure is 137/55. 06/21/2022 interval history: Recently patient was treated for pneumonia and discharged home on Levaquin however patient presented with complaint of shortness of breath and CT scan
[2022-06-21] MEDS: levoFLOXacin 500 MG/D5W 100 ML 500 MG/100 ML BAG 100 MG IVPB (16:40)
[2022-06-21] MEDS: QUEtiapine FUMARATE 25 MG TABLET PO (20:22)
[2022-06-21] MEDS: DONEPEZIL HCL 5 MG TABLET PO (20:22)
[2022-06-21] MEDS: ATORVASTATIN 40 MG TABLET 80 MG PO (20:22)
[2022-06-22] VITALS (20 sets, daily range): BP systolic 133–140; BP diastolic 61–85; PULSE 71–105; RESP 14–20; TEMP 36.6–36.9; O2SAT 93–95
[2022-06-22] MEDS: LACTATED RINGERS 1,000 ML 125 ML IV CONT ×3 (01:57→18:01)
[2022-06-22] MEDS: IPRATROPIUM BR 0.02% INH SOLN 0.5 MG/2.5 ML VIAL INHALATION ×5 (03:03→19:41)
[2022-06-22] MEDS: LEVALBUTEROL NEB 1.25 MG/3 ML 0.63 MG INHALATION ×4 (03:04→19:39)
[2022-06-22 05:31] LABS: Hematocrit 24.5 % (42.0-52.0); Hemoglobin 7.6 g/dL (14.0-18.0); Mean Corpuscular Hemoglobin 28.4 pg (26-34); Mean Corpuscular Volume 91.4 fl (80-100); Mean Platelet Volume 9.7 fl (7.4-10.4); Platelet Count Result 408 k/mm3 (150-375); Red Blood Count 2.68 M/mm3 (4.6-6.20); Red Cell Distribution Width 17.1 % (11.5-14.5); White Blood Count 9.4 K/mm3 (4.5-10.0)
[2022-06-22 05:39] LABS: Anion Gap 2 mmol/L (8-16); Blood Urea Nitrogen 12 mg/dL (9-20); Calcium 8.6 mg/dL (8.4-10.2); Carbon Dioxide 33 mmol/L (22-30); Chloride 105 mmol/L (98-107); Estimated CRCL calculation 63 ml/min; Estimated Glomerular Filt Rate > 60; Glucose 104 mg/dL (65-110); Magnesium 1.8 mg/dL (1.6-2.3); Potassium 3.3 mmol/L (3.4-5.0); Sodium 140 mmol/L (137-145)
[2022-06-22] MEDS: POTASSIUM CHLORIDE 20 MEQ PACKET (FOR LIQUID) PO ×2 (08:11→17:59)
[2022-06-22] MEDS: POTASSIUM CHLORIDE 20 MEQ TABLET 40 MEQ PO (08:11)
[2022-06-22] MEDS: methylPREDNISolone SOD SUCC 40 MG VIAL IV PUSH (08:12)
[2022-06-22] MEDS: ASPIRIN 81 MG ENTERIC TABLET PO (08:12)
[2022-06-22] MEDS: PANTOPRAZOLE 40 MG TABLET PO ×2 (08:12→18:00)
[2022-06-22] MEDS: NICOTINE (*PBKC) 21 MG PATCH 1 PATCH TRANSDERM (08:12)
[2022-06-22] MEDS: METOPROLOL TARTRATE 25 MG TABLET PO ×2 (08:17→21:47)
[2022-06-22] MEDS: amLODIPine BESYLATE 2.5 MG TABLET PO (08:18)
[2022-06-22] MEDS: levoFLOXacin 500 MG/D5W 100 ML 500 MG/100 ML BAG 100 MG IVPB (17:59)
[2022-06-22] MEDS: DONEPEZIL HCL 5 MG TABLET PO (21:47)
[2022-06-22] MEDS: QUEtiapine FUMARATE 25 MG TABLET PO (21:47)
[2022-06-22] MEDS: ATORVASTATIN 40 MG TABLET 80 MG PO (21:47)
[2022-06-23] VITALS (21 sets, daily range): BP systolic 107–157; BP diastolic 67–85; PULSE 66–108; RESP 16–18; TEMP 36.2–37.1; O2SAT 91–97
[2022-06-23] MEDS: LEVALBUTEROL NEB 1.25 MG/3 ML 0.63 MG INHALATION ×4 (01:28→21:22)
[2022-06-23] MEDS: LACTATED RINGERS 1,000 ML 125 ML IV CONT ×2 (04:43→13:16)
[2022-06-23 05:40] LABS: Anion Gap 3 mmol/L (8-16); Blood Urea Nitrogen 12 mg/dL (9-20); Calcium 8.4 mg/dL (8.4-10.2); Carbon Dioxide 32 mmol/L (22-30); Chloride 105 mmol/L (98-107); Estimated CRCL calculation 65 ml/min; Estimated Glomerular Filt Rate > 60; Glucose 106 mg/dL (65-110); Magnesium 1.9 mg/dL (1.6-2.3); Potassium 3.6 mmol/L (3.4-5.0); Sodium 140 mmol/L (137-145)
[2022-06-23 05:41] LABS: Hematocrit 24.9 % (42.0-52.0); Hemoglobin 7.8 g/dL (14.0-18.0); Mean Corpuscular HGB Conc 31.3 g/dl (32-36); Mean Corpuscular Hemoglobin 28.5 pg (26-34); Mean Corpuscular Volume 90.9 fl (80-100); Mean Platelet Volume 9.8 fl (7.4-10.4); Platelet Count Result 396 k/mm3 (150-375); Red Blood Count 2.74 M/mm3 (4.6-6.20); Red Cell Distribution Width 17.2 % (11.5-14.5); White Blood Count 9.8 K/mm3 (4.5-10.0)
[2022-06-23] MEDS: IPRATROPIUM BR 0.02% INH SOLN 0.5 MG/2.5 ML VIAL INHALATION ×3 (08:25→21:23)
[2022-06-23] MEDS: methylPREDNISolone SOD SUCC 40 MG VIAL IV PUSH (09:02)
[2022-06-23] MEDS: NICOTINE (*PBKC) 21 MG PATCH 1 PATCH TRANSDERM (09:02)
[2022-06-23] MEDS: PANTOPRAZOLE 40 MG TABLET PO ×2 (09:02→17:13)
[2022-06-23] MEDS: METOPROLOL TARTRATE 25 MG TABLET PO ×2 (09:03→21:17)
[2022-06-23] MEDS: amLODIPine BESYLATE 2.5 MG TABLET PO (09:03)
[2022-06-23] MEDS: ASPIRIN 81 MG ENTERIC TABLET PO (09:03)
[2022-06-23] MEDS: POTASSIUM CHLORIDE 20 MEQ PACKET (FOR LIQUID) PO ×2 (09:04→17:13)
--- NOTE | 2022-06-23 12:13 | PM.IMPN ---
Progress Note: A&P Assessment and Plan (1) Pneumonia: Code(s): J18.9 - Pneumonia, unspecified organism Status: Acute Assessment and Plan: The patient was discharged from here last month with pneumonia. The patient had been treated with Levaquin. The patient has a penicillin allergy. The patient was started on vancomycin. Sputum and blood cultures are pending. Continue with nebulizer treatments. May consider consulting Infectious Disease pharmacist. Tailor antibiotics results cultures and sensitivity. Check lactic in the a.m.. Patient has leukocytosis with white count of 19.6. The patient is afebrile at this time. He also has tachycardia. His blood pressure is 137/55. 06/22/2022 interval history: Recently patient was treated for pneumonia and discharged home on Levaquin however patient presented with complaint of shortness of breath and CT scan showing necrotizing pneumonia patient is placed on Levaquin and vancomycin, patient is a poor historian, will follow-up on blood culture and MRSA swab is negative, will stop vancomycin will continue the present management and repeat chest x-ray on 06/19 did not show significant change, however patient sounded more congested, gave Lasix 20mg IV x1, and methyl prednisone 40mg qd, today patient is feeling much better it sounds much better, will continue present management, will repeat chest x-ray on Today June 22 pending, will monitor, once clinically stable will have a PT OT evaluate the patient and further recommendation to follow, patient is present in the room. (2) Hypokalemia: Code(s): E87.6 - Hypokalemia Status: Acute Assessment and Plan: Patient needs to be on daily potassium. The patient's potassium was found to be 2.4. The patient appears to be chronically low. The patient was given p.o. and IV potassium today. Recheck potassium tonight and repeat potassium in the a.m. as well as magnesium. I did start the patient on a daily dose of potassium. (3) Depression: Code(s): F32.A - Depression, unspecified Status: Acute Assessment and Plan: Continue with home medication. (4) HTN (hypertension): Code(s): I10 - Essential (primary) hypertension Status: Acute Assessment and Plan: Continue with amlodipine and metoprolol. Blood pressure is currently 137/55 and pulse is 109. (5) Hypercholesterolemia: Code(s): E78.00 - Pure hypercholesterolemia, unspecified Status: Acute Assessment and Plan: Continue with atorvastatin (6) Tobacco abuse: Code(s): Z72.0 - Tobacco use Status: Acute Assessment and Plan: We spoke about smoking cessation for approximately 5 minutes. Nicotine patch has been ordered. (7) Senile dementia with behavioral disturbance: Code(s): F03.91 - Unspecified dementia, unspecified severity, with behavioral disturbance Status: Acute Assessment and Plan: The patient is on Aricept continue with that. Although the patient is refusing his medications tonight. I did order p.r.n. Ativan and a event that the patient becomes aggressive. Patient is also on Seroquel home and he is refusing his medications tonight. Subjective Date/time seen: 06/22/22 12:13 The patient was discharged from here last month with pneumonia. The patient had been treated with Levaquin. The patient has a penicillin allergy. The patient was started on vancomycin. Sputum and blood cultures are pending. Continue with nebulizer treatments. May consider consulting Infectious Disease pharmacist. Tailor antibiotics results cultures and sensitivity. Check lactic in the a.m.. Patient has leukocytosis with white count of 19.6. The patient is afebrile at this time. He also has tachycardia. His blood pressure is 137/55. 06/22/2022 interval history: Recently patient was treated for pneumonia and discharged home on Levaquin however patient presented with complaint of shortness of breath and
--- NOTE | 2022-06-23 13:12 | PC.NURSE ---
On 06/23/22, the student, [Mary Wang], provided care and completed [facility] documentation on this patient. I have reviewed the student's documentation and agree with the findings.
[2022-06-23] MEDS: levoFLOXacin 500 MG TABLET PO (17:13)
[2022-06-23] MEDS: QUEtiapine FUMARATE 25 MG TABLET PO (21:17)
[2022-06-23] MEDS: DONEPEZIL HCL 5 MG TABLET PO (21:17)
[2022-06-23] MEDS: ATORVASTATIN 40 MG TABLET 80 MG PO (21:17)
[2022-06-24] VITALS (17 sets, daily range): BP systolic 125–130; BP diastolic 62–64; PULSE 63–107; RESP 16–20; TEMP 37.1–37.2; O2SAT 92–96
[2022-06-24] MEDS: LEVALBUTEROL NEB 1.25 MG/3 ML 0.63 MG INHALATION ×4 (02:30→20:06)
[2022-06-24] MEDS: IPRATROPIUM BR 0.02% INH SOLN 0.5 MG/2.5 ML VIAL INHALATION ×4 (02:30→20:06)
--- NOTE | 2022-06-24 08:44 | PM.IMPN ---
Progress Note: A&P Assessment and Plan (1) Pneumonia: Code(s): J18.9 - Pneumonia, unspecified organism Status: Acute Assessment and Plan: The patient was discharged from here last month with pneumonia. The patient had been treated with Levaquin. The patient has a penicillin allergy. The patient was started on vancomycin. Sputum and blood cultures are pending. Continue with nebulizer treatments. May consider consulting Infectious Disease pharmacist. Tailor antibiotics results cultures and sensitivity. patient has leukocytosis with white count of 19.6. With tachycardia MRSA swab negative. Vancomycin On methylprednisolone 40 mg daily Consult Pulmonary. Worsening cavitary pneumonia evident in right upper lobe. Known smoker. Modified barium swallow weak swallowing mechanism. No penetration or aspiration observed. Swallowing precautions recommended (2) Hypokalemia: Code(s): E87.6 - Hypokalemia Status: Acute Assessment and Plan: Patient needs to be on daily potassium. The patient's potassium was found to be 2.4. The patient appears to be chronically low. The patient was given p.o. and IV potassium today. Recheck potassium tonight and repeat potassium in the a.m. as well as magnesium. I did start the patient on a daily dose of potassium. (3) Depression: Code(s): F32.A - Depression, unspecified Status: Acute Assessment and Plan: Continue with home medication. (4) HTN (hypertension): Code(s): I10 - Essential (primary) hypertension Status: Acute Assessment and Plan: Continue with amlodipine and metoprolol. Blood pressure is currently 137/55 and pulse is 109. (5) Hypercholesterolemia: Code(s): E78.00 - Pure hypercholesterolemia, unspecified Status: Acute Assessment and Plan: Continue with atorvastatin (6) Tobacco abuse: Code(s): Z72.0 - Tobacco use Status: Acute Assessment and Plan: We spoke about smoking cessation for approximately 5 minutes. Nicotine patch has been ordered. (7) Senile dementia with behavioral disturbance: Code(s): F03.91 - Unspecified dementia, unspecified severity, with behavioral disturbance Status: Acute Assessment and Plan: The patient is on Aricept continue with that. Although the patient is refusing his medications tonight. I did order p.r.n. Ativan and a event that the patient becomes aggressive. Patient is also on Seroquel home and he is refusing his medications tonight. Subjective Date/time seen: 06/24/22 08:44 Interval history: No overnight events. Vital stable. Remains on room air. No oxygen requirement throughout the hospital stay. WBC count is normal. Moderate anemia with hemoglobin 7.8 and stable admitted with leukocytosis 19,000. Recently admitted for pneumonia last month. COVID and flu negative. CT from May and June reviewed. Treated with Levaquin in May 2022 MRSA is screen negative. Blood culture negative to date.Still has intermittent cough with minimal expectoration. Feeling overall better Review of Systems Review of Systems: All systems reviewed & are unremarkable except as noted in HPI and below Exam Narrative: Appears chronically ill Patient is comfortable, NAD HEENT: eyes are clear and none icteric LUNGS: Normal respiratory effort coarse breath sound bilaterally ABD: Not distended soft nontender Lower extremities: no edema sinus or clubbing SKIN: nonjaundiced Neuro: grossly intact. underlying dementia Objective Data Vital Signs Vital Signs: Vital Signs - 24 hr 06/23/22 09:03 06/23/22 09:00 06/23/22 12:26 Temperature Pulse Rate 97 97 107 H Respiratory Rate Blood Pressure 157/67 H Pulse Oximetry Oxygen Delivery 06/23/22 14:14 06/23/22 14:28 06/23/22 16:00 Temperature Pulse Rate 88 91 103 H Respiratory Rate 18 18 Blood Pressure Pulse Oximetry Oxygen Delivery 06/23/22 18:14
[2022-06-24] MEDS: POTASSIUM CHLORIDE 20 MEQ PACKET (FOR LIQUID) PO ×2 (08:52→17:43)
[2022-06-24] MEDS: NICOTINE (*PBKC) 21 MG PATCH 1 PATCH TRANSDERM (08:52)
[2022-06-24] MEDS: amLODIPine BESYLATE 2.5 MG TABLET PO (08:53)
[2022-06-24] MEDS: PANTOPRAZOLE 40 MG TABLET PO ×2 (08:53→17:42)
[2022-06-24] MEDS: methylPREDNISolone SOD SUCC 40 MG VIAL IV PUSH (08:53)
[2022-06-24] MEDS: METOPROLOL TARTRATE 25 MG TABLET PO ×2 (08:53→20:32)
[2022-06-24] MEDS: ASPIRIN 81 MG ENTERIC TABLET PO (08:53)
--- NOTE | 2022-06-24 11:08 | PM.CNPUL ---
Assessment and Plan Assessment and plan (1) Necrotizing pneumonia: Code(s): J85.0 - Gangrene and necrosis of lung Status: Acute Assessment and Plan: 76-year-old man with a history of dementia was rehospitalized after a follow-up chest CT done for recent pneumonia showed worsening consolidation with central necrosis. The patient has again received levofloxacin with significant clinical improvement. Recent symptoms of cough with sputum production have abated. He no longer has leukocytosis. Etiology of this partially treated pneumonia is unclear; given the fact that patient did not respond to levofloxacin/vancomycin during previous hospitalization in May it may indicate that his pneumonia was related to anaerobic infection. Presence of central necrosis also lends support to that possibility. plan: patient's respiratory status has significantly improved. Okay to DC patient home in a.m.. I would suggest oral antibiotic like clindamycin 150 q.i.d. for approximately 3 more weeks to cover possible anaerobic bacteria. The patient will need follow-up with a chest x-ray in approximately 1 month post discharge. will sign off please call with any questions. (2) Anemia: Code(s): D64.9 - Anemia, unspecified Status: Acute (3) Senile dementia with behavioral disturbance: Code(s): F03.91 - Unspecified dementia, unspecified severity, with behavioral disturbance Status: Acute (4) History of prostate cancer: Code(s): Z85.46 - Personal history of malignant neoplasm of prostate Status: Acute (5) Tobacco abuse: Code(s): Z72.0 - Tobacco use Status: Acute History of Present Illness History of Present Illness Consult date: 06/24/22 Chief complaint: Sepsis,Necrotizing Pneumonia,Hypokalemia Narrative: This 76-year-old man with a history of of dementia was hospitalized twice over the last month because of right lung pneumonia. According to the patient's who provided pertinent clinical information, the patient was in his usual state of health until approximately 1 month ago when he fell at home. When evaluated in the emergency room, he was diagnosed with urinary tract infection and also right upper lobe consolidation due to pneumonia. around the same time the patient also had cough productive of brownish sputum and shortness of breath. During hospitalization in mid May, he was treated with IV vancomycin for 3 days and levofloxacin for a total of 7 days. The patient was sent home on oral levofloxacin to complete 7 day therapy. While at home, he continued to have cough and chest congestion for approximately 3 weeks following hospital discharge. On a follow-up chest CT done on outpatient basis, the right upper lobe consolidation had worsened. In addition there was evidence of necrosis in the initial consolidation. The patient was readmitted and has received IV levofloxacin again. Over the last few days his clinical condition has improved. He no longer has respiratory symptoms. The white cell count is back into the normal range. The patient is on room air. Review of previous hospitalization data showed that his MRSA screen was negative. Past medical history in addition to dementia is also significant for previous coronary ischemic event, prostate cancer. The patient used to smoke for many years. There is a history of obstructive sleep apnea following a sleep study in 2014 but patient has not been using any PAP. also history of COPD although no pulmonary function testing is available. Review of Systems Review of Systems: According to patient's he has a history of urinary incontinence. [facility] Past Medical History Medical History Angina at rest CAD (coronary artery disease) COPD (chronic obstructive pulmonary disease) HTN (hypertension) Hypercholesterolemia Inguinal hernia Myocardial infarction Obstructive sleep
--- NOTE | 2022-06-24 12:16 | PCNFU ---
Nutrition Follow-Up Complete: Suboptimal po intake related to appetite as evidenced by po intake of 25% of meals, noted lower BMI Goal:PO intake 50% or greater for meals and supplements Pt current nutrition is Minced and moist level 5, Ensure compact TID. Nutrition recommendation: continue with current plan of care. Last recorded weight is 64.1 kg. Bowel Motility: No BM recorded past 06/20 Labs Reviewed: hgb:7.8, HCT:24.9 Meds Noted: KCL Skin: macerated buttocks Additional Notes: pt is now on a minced and moist level 5 diet, ensure compact TID with meals. Intake much improved to 75-100%. Monitor intake, wt, labs. Follow up in 7 days.
[2022-06-24] MEDS: levoFLOXacin 500 MG TABLET PO (17:43)
[2022-06-24] MEDS: CLINDAMYCIN HCL 150 MG CAP 300 MG PO (20:32)
[2022-06-24] MEDS: ATORVASTATIN 40 MG TABLET 80 MG PO (20:32)
[2022-06-24] MEDS: QUEtiapine FUMARATE 25 MG TABLET PO (20:32)
[2022-06-24] MEDS: DONEPEZIL HCL 5 MG TABLET PO (20:32)
[2022-06-25] VITALS (10 sets, daily range): BP systolic 139–141; BP diastolic 69–86; PULSE 83–107; RESP 18–22; TEMP 36.7–36.9; O2SAT 93–98
[2022-06-25] MEDS: IPRATROPIUM BR 0.02% INH SOLN 0.5 MG/2.5 ML VIAL INHALATION ×3 (02:07→08:54)
[2022-06-25] MEDS: LEVALBUTEROL NEB 1.25 MG/3 ML 0.63 MG INHALATION ×2 (02:13→08:53)
[2022-06-25] MEDS: CLINDAMYCIN HCL 150 MG CAP 300 MG PO (05:54)
[2022-06-25 06:38] LABS: Basophils Percent Auto 0.2 % (0.2-1.2); Eosinophils Absolute Auto 0.1 K/mm3 (0-0.3); Eosinophils Percent Auto 0.8 % (0-4.4); Hematocrit 27.6 % (42.0-52.0); Hemoglobin 8.6 g/dL (14.0-18.0); Immature Granulocyte Absolute 0.11 K/mm3 (0.00-0.031); Immature Granulocyte Percent A 0.8 % (0-0.5); Lymphocytes Absolute Auto 1.81 K/mm3 (0.9-3.2); Lymphocytes Percent Auto 13.3 % (18.3-44.2); Mean Corpuscular HGB Conc 31.2 g/dl (32-36); Mean Corpuscular Hemoglobin 28.5 pg (26-34); Mean Corpuscular Volume 91.4 fl (80-100); Mean Platelet Volume 9.6 fl (7.4-10.4); Monocytes Absolute Auto 0.8 K/mm3 (0.1-0.6); Monocytes Percent Auto 5.9 % (2.6-8.5); Neutrophils Absolute Auto 10.7 K/mm3 (1.3-6.7); Platelet Count Result 423 k/mm3 (150-375); Red Blood Count 3.02 M/mm3 (4.6-6.20); Red Cell Distribution Width 17.8 % (11.5-14.5); White Blood Count 13.6 K/mm3 (4.5-10.0)
[2022-06-25 06:55] LABS: Alanine Aminotransferase 49 U/L (6-50); Alkaline Phosphatase 88 U/L (38-126); Anion Gap 2 mmol/L (8-16); Aspartate Amino Transferase 44 U/L (17-59); Bilirubin,Total 0.9 mg/dL (0.2-1.3); Blood Urea Nitrogen 13 mg/dL (9-20); Calcium 8.5 mg/dL (8.4-10.2); Carbon Dioxide 34 mmol/L (22-30); Chloride 102 mmol/L (98-107); Estimated CRCL calculation 55 ml/min; Estimated Glomerular Filt Rate > 60; Glucose 81 mg/dL (65-110); Potassium 3.7 mmol/L (3.4-5.0); Sodium 138 mmol/L (137-145)
[2022-06-25] MEDS: amLODIPine BESYLATE 2.5 MG TABLET PO (08:08)
[2022-06-25] MEDS: ASPIRIN 81 MG ENTERIC TABLET PO (08:08)
[2022-06-25] MEDS: METOPROLOL TARTRATE 25 MG TABLET PO (08:08)
[2022-06-25] MEDS: PANTOPRAZOLE 40 MG TABLET PO (08:11)
[2022-06-25] MEDS: POTASSIUM CHLORIDE 20 MEQ PACKET (FOR LIQUID) PO (08:12)
--- NOTE | 2022-06-25 08:47 | PM.PNPUL ---
Progress Note: A&P Assessment and Plan (1) Necrotizing pneumonia: Code(s): J85.0 - Gangrene and necrosis of lung Status: Acute Assessment and Plan: This 76-year-old man with a dementia was hospitalized twice over the last month for right upper lobe pneumonia. During current hospitalization, chest CT showed worsening of the right upper lobe consolidation with central development of central necrosis. The patient has improved on IV levofloxacin. Currently he is on levofloxacin and clindamycin orally to cover possible anaerobic organisms as pneumonia did not initially respond to vancomycin and levofloxacin. The case has been discussed with hospitalist. Physical exam is unchanged today. WBCs elevated, unclear whether it is related to recent steroid use. Okay to discharge patient home on current clindamycin regimen for another 3 weeks. Need to see the patient in the Pulmonary Clinic in about 1 month from today. Will sign off please call with any questions. (2) Abnormal CT scan of lung: Code(s): R91.8 - Other nonspecific abnormal finding of lung field Status: Acute (3) Obstructive sleep apnea: Code(s): G47.33 - Obstructive sleep apnea (adult) (pediatric) Status: Acute Subjective Date/time seen: 06/25/22 08:47 Patient has no new respiratory symptoms. Remains on room air. Sitting in chair, willing to go home today. Review of Systems Review of Systems: All systems reviewed & are unremarkable except as noted in HPI and below ( HPI and below) Exam Narrative: GENERAL APPEARANCE: Well developed, well nourished, alert and cooperative, and appears to be in no acute distress SKIN: Inspection of the skin reveals no rashes, ulcerations or petechiae. HEENT: Sclerae anicteric and conjunctivae pink and moist. Extraocular movements were intact and pupils were equal, round. The oral mucosa, hard and soft palate, tongue and posterior pharynx were normal. NECK: Supple. There was no thyroid enlargement, and no tenderness, or masses were felt. LUNGS: rare rhonchi bilaterally, localize wheezing right lung apex posteriorly. CARDIAC: There was a regular rate and rhythm without any murmurs, gallops, rubs. ABDOMEN: Soft and nontender with normal bowel sounds. There was no organomegaly. LYMPH NODES: No lymphadenopathy was appreciated in the neck. EXTREMITIES: No cyanosis, clubbing or edema. NEUROLOGIC: moving all extremities, normal affect. Objective Data Vital Signs Vital Signs: Vital Signs - 24 hr 06/24/22 09:14 06/24/22 09:22 06/24/22 09:14 Temperature Pulse Rate 63 84 Respiratory Rate 16 16 Blood Pressure Pulse Oximetry 94 Oxygen Delivery Room Air Fraction of Inspired Oxygen 06/24/22 10:47 06/24/22 14:30 06/24/22 14:41 Temperature 37.2 C Pulse Rate 95 93 88 Respiratory Rate 20 16 16 Blood Pressure 125/62 Pulse Oximetry 92 Oxygen Delivery Fraction of Inspired Oxygen 06/24/22 12:00 06/24/22 16:00 06/24/22 17:27 Temperature 37.1 C Pulse Rate 93 100 97 Respiratory Rate 20 Blood Pressure 130/63 Pulse Oximetry 95 Oxygen Delivery Fraction of Inspired Oxygen 06/24/22 19:52 06/24/22 20:09 06/24/22 20:13 Temperature 37.1 C Pulse Rate 102 H 95 Respiratory Rate 18 16 Blood Pressure 127/64 Pulse Oximetry 94 96 Oxygen Delivery Room Air Fraction of Inspired Oxygen 21 06/24/22 20:13 06/24/22 20:32 06/24/22 20:00 Temperature Pulse Rate 98 102 H 102 H Respiratory Rate 16 16 Blood Pressure Pulse Oximetry 96 Oxygen Delivery Room Air Fraction of Inspired Oxygen 06/24/22 20:00 06/25/22 00:00 06/25/22 00:00 Temperature 36.7 C Pulse Rate 107 H 83 86 Respiratory Rate 18 Blood Pressure 139/69 Pulse Oximetry 93 Oxygen Delivery Fraction of Inspired Oxygen 06/25/22 02:07 06/25/22 02:13 06/25/22 04:00 Temperature Pulse Rate 86 89 100 Respiratory Rate 18 18 Blood Pressure Pulse
--- NOTE | 2022-06-25 11:31 | PM.DS ---
DS: Admitting Diagnosis Discharge Date 06/25/2022 Admitting Diagnosis Pneumonia DS: Discharge Diagnosis Discharge Diagnosis (1) Pneumonia: Code(s): J18.9 - Pneumonia, unspecified organism Status: Acute (2) Hypokalemia: Code(s): E87.6 - Hypokalemia Status: Acute (3) Depression: Code(s): F32.A - Depression, unspecified Status: Acute (4) HTN (hypertension): Code(s): I10 - Essential (primary) hypertension Status: Acute (5) Hypercholesterolemia: Code(s): E78.00 - Pure hypercholesterolemia, unspecified Status: Acute (6) Tobacco abuse: Code(s): Z72.0 - Tobacco use Status: Acute (7) Senile dementia with behavioral disturbance: Code(s): F03.91 - Unspecified dementia, unspecified severity, with behavioral disturbance Status: Acute DS: Summary Hospital Course Hospital Course: # Pneumonia: The patient was discharged from here last month with pneumonia.? The patient had been treated with Levaquin.? The patient has a penicillin allergy. The patient was started on vancomycin. Sputum and blood cultures could not be completed. Continue with nebulizer treatments. Blood culture negative patient has leukocytosis with white count of 19.6.? With tachycardia MRSA swab negative.? Vancomycin stopped On methylprednisolone 40 mg daily which has been tapered off Right upper lobe pneumonia as progress to involve necrotizing melo in the middle. He is a known smoker. His symptoms improved with treatment for pneumonia however with cavitation suspect anaerobic infection. Pulmonary consulted and suggested anaerobic treatment with clindamycin for 3 weeks. Modified barium swallow weak swallowing mechanism.? No penetration or aspiration observed.? Swallowing precautions recommended Needs follow-up with Pulmonary for continued evaluation and resolution as right upper quadrant necrotizing pneumonia. # hypokalemia: Patient needs to be on daily potassium.? The patient's potassium was found to be 2.4.? The patient appears to be chronically low. Started potassium supplement daily # depression: Home medication # hypertension: On amlodipine and metoprolol. # hyperlipidemia: Atorvastatin # tobacco abuse: Nicotine patch that hospital stay # senile dementia with behavioral disturbance on Aricept. Seroquel night # disposition home with home health Time Spent with Patient Time attestation: Total time spent providing and/or coordinating discharge services:. 5 minutes Exam Narrative: GENERAL APPEARANCE: Well developed, well nourished, alert pacing in the room and appears to be in no acute distress SKIN: Inspection of the skin reveals no rashes, ulcerations or petechiae. HEENT: Sclerae anicteric and conjunctivae? pink and moist. Extraocular movements were intact and pupils were equal, round.? The oral mucosa, hard and soft palate, tongue and posterior pharynx were normal. NECK: Supple. There was no thyroid enlargement, and no tenderness, or masses were felt. LUNGS:? Coarse breath sounds no respiratory distress CARDIAC: There was a regular rate and rhythm without any murmurs, gallops, rubs. ABDOMEN: Soft and nontender with normal bowel sounds. There was no organomegaly. LYMPH NODES: No lymphadenopathy was appreciated in the neck. EXTREMITIES: No cyanosis, clubbing or edema. NEUROLOGIC:? moving all extremities, normal affect. DS: Data Data Completed and Pending Labs on day of discharge: Labs from last 24 hours 06/25/22 06/25/22 06:17 06:17 WBC 13.6 H RBC 3.02 L Hgb 8.6 L Hct 27.6 L MCV 91.4 MCH 28.5 MCHC 31.2 L RDW 17.8 H Plt Count 423 H MPV 9.6 Immature Gran % (Auto) 0.8 H Neut % (Auto) 79.0 H Lymph % (Auto) 13.3 L [place] % (Auto) 5.9 Eos % (Auto) 0.8 Baso % (Auto) 0.2 Lymph # (Auto) 1.81 [place] # (Auto) 0.8 H Eos # (Auto) 0.1 Baso # (Auto) 0.0 Abs Immat Gran (auto) 0.11 H Absolute Neuts (auto) 10.7
== END 2022-06-25 13:44 | disposition home health service (06) | DRG 178 ==
LOC: ANHED 13:37 → ANHIMU 15:59 → ANH2MED 06-17 18:29
PROVIDERS: Emergency Medicine; Family Medicine; Internal Medicine; Nurse Practitioner; Admitting Provider Internal Medicine; Emergency Provider General Practice; PCP Family Medicine; Visit Provider Internal Medicine
DX: J85.0 Gangrene and necrosis of lung (principal); J44.0 Chronic obstructive pulmonary disease with (acute) lower respiratory infection; E87.6 Hypokalemia; F32.A Depression, unspecified; I10 Essential (primary) hypertension; E78.00 Pure hypercholesterolemia, unspecified; F03.90 Unspecified dementia, unspecified severity, without behavioral disturbance, psychotic disturbance, mood disturbance, and anxiety; F17.210 Nicotine dependence, cigarettes, uncomplicated; I25.10 Atherosclerotic heart disease of native coronary artery without angina pectoris; D64.9 Anemia, unspecified; G47.33 Obstructive sleep apnea (adult) (pediatric); Z96.643 Presence of artificial hip joint, bilateral; Z79.82 Long term (current) use of aspirin; I25.2 Old myocardial infarction; Z95.5 Presence of coronary angioplasty implant and graft; Z90.49 Acquired absence of other specified parts of digestive tract; Z85.46 Personal history of malignant neoplasm of prostate
CPT/HCPCS: 36415; 71045; 71046; 71250; 80048; 80053; 81001; 83605; 83735; 85025; 85027; 85610; 85730; 86140; 87040; 87081; 92610; 92611; 93005; 94640; 96365; 96366; 96367; 96375; 96376; 97110; 97116; 97162; 97165; 97530; 97535; 99285; A9270; G0378; J1940; J1956; J2060; J2920; J3370; J3480; J7030; J7040; J7120

== ENCOUNTER 2022-07-06 10:21 | Outpatient (NON) | payer MEDICARE, SELFPAY ==
[2022-07-06 11:22] LABS: Anion Gap 1 mmol/L (8-16); Blood Urea Nitrogen 17 mg/dL (9-20); Calcium 9.1 mg/dL (8.4-10.2); Carbon Dioxide 29 mmol/L (22-30); Chloride 106 mmol/L (98-107); Estimated Glomerular Filt Rate > 60; Glucose 83 mg/dL (65-110); Potassium 4.7 mmol/L (3.4-5.0); Sodium 136 mmol/L (137-145)
== END 2022-07-06 10:22 | disposition home or self-care (01) ==
LOC: HOME HLTH 10:24
PROVIDERS: PCP Family Medicine; Visit Provider Family Medicine
DX: J44.0 Chronic obstructive pulmonary disease with (acute) lower respiratory infection (principal); J18.9 Pneumonia, unspecified organism; E87.6 Hypokalemia; F32.A Depression, unspecified
CPT/HCPCS: 80048

== ENCOUNTER 2022-07-21 15:23 | Outpatient (CLI) | payer MEDICARE, SELFPAY ==
--- NOTE | ~2022-07-21 | XR_ITS ---
XR chest 2V 07/21/2022 15:45 Indication: Gangrene and necrosis of the lung Procedure: PA and lateral views of the chest Comparison: Comparison to multiple prior studies sequentially, with oldest reviewed study dated 05/16. Findings: There are focal asymmetries in the right upper thorax which has improved. There are nodular densities in the right upper thorax. Recommend correlation with CT chest to exclude parenchymal nodu le/mass. Impression: 1: Improved right upper lobe opacities which may represent resolving pneumonia, although residual par enchymal nodule not excluded. Recommend correlation with CT chest. Reviewed, dictated and finalized at location B. Impression: 1: Improved right upper lobe opacities which may represent resolving pneumonia, although residual parenchymal nodule not excluded. Recommend correlation with CT chest.
== END 2022-07-21 15:24 | disposition home or self-care (01) ==
PROVIDERS: PCP Family Medicine; Visit Provider Internal Medicine Pulmonary Disease
DX: J85.0 Gangrene and necrosis of lung (principal); R91.8 Other nonspecific abnormal finding of lung field
CPT/HCPCS: 71046

== ENCOUNTER 2022-09-23 13:15 | Outpatient (CLI) | payer MEDICARE, SELFPAY ==
--- NOTE | ~2022-09-23 | XR_ITS ---
XR abdomen/kub 1V DATE: 09/23/2022 13:35 INDICATION: Constipation TECHNIQUE: 2 supine AP views COMPARISON: 05/16/2022 CT abdomen pelvis FINDINGS: Status post bilateral total hip arthroplasties. Multiple surgical clips overlie the pelvis, likely due to prostatectomy and pelvic lymph node dissection. The psoas shadows are intact. No visceromegaly is evident. There is a moderately prominent amount of fecal material within the colon but no evidence of bowel ob struction. Abdominal aortic and bilateral iliac arterial calcifications. The lung bases appear clear. Heart size appears normal. Rotatory dextroscoliosis of the lower thoracic and lumbar spine. Severe degenerative disc disease at L1-2 and particularly L2-3 and L5-S1. IMPRESSION: Moderately prominent amount of fecal material within the colon; no bowel obstruction Status post prostatectomy Bilateral total hip arthroplasty Multilevel degenerative disc disease and dextroscoliosis of the lumbar spine Osteopenia Reviewed, dictated and finalized at Location A. Reviewed, dictated and finalized at location L.
== END 2022-09-23 13:16 | disposition home or self-care (01) ==
LOC: ANHIMG 13:24
PROVIDERS: PCP Family Medicine; Visit Provider Family Medicine
DX: K59.00 Constipation, unspecified (principal); M51.36 Other intervertebral disc degeneration, lumbar region; M85.88 Other specified disorders of bone density and structure, other site
CPT/HCPCS: 74018

== ENCOUNTER 2022-11-19 15:07 | Outpatient (CLI) | payer MEDICARE, SELFPAY ==
--- NOTE | ~2022-11-19 | XR_ITS ---
XR chest 2V 11/19/2022 15:27 Indication: Pneumonia Procedure: PA and lateral views of the chest Comparison: 07/21/2022 and 06/22/2022 Findings: Improved right upper lobe infiltrates. Heart size normal. Left lung clear. No pleural effus ion, edema or pneumothorax. No acute osseous abnormality. Impression: 1: Improved right upper lobe infiltrates, most likely resolving pneumonia and/or atelectasis. Reviewed, dictated and finalized at location B. Impression: 1: Improved right upper lobe infiltrates, most likely resolving pneumonia and/o r atelectasis.
== END 2022-11-19 15:08 | disposition home or self-care (01) ==
PROVIDERS: PCP Family Medicine; Visit Provider Internal Medicine Pulmonary Disease
DX: J18.9 Pneumonia, unspecified organism (principal)
CPT/HCPCS: 71046

== ENCOUNTER 2022-12-02 10:31 | Outpatient (CLI) | payer MEDICARE, SELFPAY ==
--- NOTE | ~2022-12-02 | CT_ITS ---
Non-contrast CT scan of the Abdomen and Pelvis Clinical indication: Iliac artery aneurysm Technique: 2.5 mm axial scans were obtained through the abdomen and pelvis without intravenous or or al contrast. Dose reduction technique was used on this scan by utilizing automated exposure control a nd iterative reconstruction technique. The dose-length product (DLP) was 328.55 mGy-cm. COMPARISON: 05/16/2022 Findings: Images through the lung bases reveal irregular peripheral airspace opacities in the right middle lobe, possibly scarring versus small airways infectious process. The liver, spleen, pancreas, gallbladder, kidneys, and adrenals appear normal. There are atherosclero tic calcifications of the aorta. There is no evidence of bowel obstruction. Images through the pelvis are degraded by streak artifact from bilateral hip arthroplasty. There is n o evidence of ascites or lymphadenopathy. No gross pelvic mass identified. Urinary bladder poorly andrew luated. Left common iliac artery measures up to maximum of 1.9 cm in diameter. There are extensive at herosclerotic calcifications of the iliac vasculature.. Impression: Left common iliac artery measures up to 1.9 cm in maximum diameter, essentially unchanged from prior exam. Scarring versus small airways infectious process in the right middle lobe, partially imaged. Reviewed, dictated and finalized at location . Impression: Left common iliac artery measures up to 1.9 cm in maximum diameter, essentially unchanged from prior exam. Scarring versus small airways infectious process in the right middle lobe, part ially imaged.
== END 2022-12-02 10:32 | disposition home or self-care (01) ==
PROVIDERS: PCP Family Medicine; Visit Provider Family Medicine
DX: I72.3 Aneurysm of iliac artery (principal)
CPT/HCPCS: 74176

== ENCOUNTER 2023-07-27 07:31 | Emergency (ER) | payer MEDICARE, SELFPAY ==
[2023-07-27] VITALS (13 sets, daily range): BP systolic 121–132; BP diastolic 70–80; PULSE 80–89; RESP 13–26; TEMP 37.1; O2SAT 95
--- NOTE | ~2023-07-27 | XR_ITS ---
XR hip RT min 2V DATE: 07/27/2023 08:51 INDICATION: Fall. Right hip pain. TECHNIQUE: AP and crosstable lateral views COMPARISON: None FINDINGS: Status post right total hip arthroplasty. There is normal alignment of the acetabular and f emoral components. No right hip fracture or dislocation is detected. Normal alignment of the pubic sy mphysis and right sacroiliac joint. Severe degenerative disc disease at L5-S1. Surgical clips overlie the prostate bed and right lateral pelvis. Calcification of the right common and external iliac arteries, right femoral artery IMPRESSION: Status post right total hip arthroplasty; no fracture or dislocation Severe degenerative disc disease at L5-S1 Probable prostatectomy Reviewed, dictated and finalized at location B. IMPRESSION: Status post right total hip arthroplasty; no fracture or dislocatio n Severe degenerative disc disease at L5-S1 Probable prostatectomy
--- NOTE | ~2023-07-27 | XR_ITS ---
XR knee RT min 4V DATE: 07/27/2023 08:51 INDICATION: Fall. Right knee injury, anterior abrasion TECHNIQUE: AP, lateral, bilateral oblique views COMPARISON: None FINDINGS: No fracture or dislocation or joint effusion, periosteal reaction or bone destruction. The joint spaces are well preserved. No radiopaque intra-articular this body or chondral calcinosis. Prominent femoral and popliteal artery calcifications. IMPRESSION: No fracture or dislocation or joint effusion Reviewed, dictated and finalized at location B.
--- NOTE | ~2023-07-27 | XR_ITS ---
XR elbow RT min 3V DATE: 07/27/2023 08:51 INDICATION: Fall. Right elbow injury, dorsal abrasion, pain TECHNIQUE: 4 views COMPARISON: None FINDINGS: No fracture or dislocation or joint effusion. There is mild spurring of the coronoid proces s. No periosteal reaction or bone destruction. IMPRESSION: No fracture or dislocation or joint effusion Reviewed, dictated and finalized at location B.
--- NOTE | 2023-07-27 09:30 | ED.FALL ---
HPI - Fall General Chief Complaint: Fall Stated Complaint: fall this morning-right hip pain Time Seen by Provider: 07/27/23 08:52 History of Present Illness HPI Narrative: 78-year-old male history of dementia, blood pressure, bilateral hip replacement presents emergency room for evaluation of injuries sustained in a fall. Patient states that he was outside this morning, when he returned to the home he did not raise his leg up high enough and his toes caused him to trip over a stair. Patient states that he landed on his right elbow and then his right hip. Patient states that he is able to stand up and walk into the home following the injury with the assistance of a cane. Denies head injury. Related Data Home Medications Medication Instructions Recorded Confirmed atorvastatin 80 mg tablet 80 mg PO HS 04/20/19 09/23/22 metoprolol tartrate 50 mg tablet 25 mg PO Q12H 04/20/19 09/23/22 aspirin 81 mg tablet,delayed 81 mg PO QHS 08/13/21 09/23/22 release (Adult Low Dose Aspirin) Allergies Allergy/AdvReac Type Severity Reaction Status Date / Time Penicillins Allergy Unknown Seizure Verified 07/27/23 07:31 cyclobenzaprine AdvReac Unknown Hallucinati Verified 07/27/23 07:31 ng oxybutynin AdvReac Unknown Hallucinati Verified 07/27/23 07:31 ng Review of Systems Review of Systems: ROS unremarkable as otherwise stated in HPI [facility] Past Medical History Medical History Angina at rest CAD (coronary artery disease) COPD (chronic obstructive pulmonary disease) HTN (hypertension) Hypercholesterolemia Inguinal hernia Myocardial infarction Obstructive sleep apnea does not use a c- pap Prostate cancer Seizures after taking pcn Tobacco abuse Surgical History Surgical History H/O angioplasty H/O cardiac catheterization H/O heart artery stent 2 H/O hemorrhoidectomy H/O inguinal hernia repair with mesh H/O prostatectomy Hx of appendectomy S/P total hip arthroplasty bilateral Status post implantation of artificial urinary sphincter Family History Family History Other Family history of heart disease in male family member before age 55 Malignant neoplasm of prostate Social History Social History Social History: he is and lives with his . He has 2 children. He is retired from [employer]. He still continues to smoke a pack of cigarettes a day. Code status full code Smoking packs per day: 0.5 Smoking cigarettes per day: 10.0 Years smoked: 60 Smoking pack-years: 30.00 Smoking status: Current every day smoker Tobacco type: cigarettes Second hand tobacco smoke exposure: No Alcohol intake: never Alcohol use details: Very rare Substance use: never Substance use type: does not use Lack of Transportation: No Lack of Food: Never True Current Housing: I Have Housing Concerned About Future Housing: No Difficulty Paying Gas/Electric Bills: No Difficulty Paying for Meds: No Currently Unemployed: No Education: High School Diploma/GED Difficulty w/ Childcare or Family Care: No Living arrangements: with family Occupation/Education: retired Gender identity (if verbalized by the patient): Male Sexual Orientation (if Verbalized by the Patient): Straight or Heterosexual Spiritual care concerns: No Exam Narrative: GENERAL: Chronically ill-appearing, well-nourished, no physical limitations, and in no acute distress. HEAD: Normocephalic, atraumatic. EYES: Conjunctivae normal, PERRLA and EOMI. CHEST: Clear to auscultation. No respiratory distress. No wheezes rales or rhonchi. HEART: Regular rate and rhythm. No murmur heard. Normal peripheral pulses. ABDOMEN: Soft, nontender, nondistended, normal active bowel sounds. BACK: No c
== END 2023-07-27 09:57 | disposition home or self-care (01) ==
PROVIDERS: Emergency Provider Nurse Practitioner Family; PCP Family Medicine
DX: S70.01XA Contusion of right hip, initial encounter (principal); S50.01XA Contusion of right elbow, initial encounter; W10.9XXA Fall (on) (from) unspecified stairs and steps, initial encounter
CPT/HCPCS: 73080; 73502; 73564; 99284

== ENCOUNTER 2023-08-03 11:11 | Outpatient (NON) | payer MEDICARE, SELFPAY ==
[2023-08-03 12:14] LABS: Appearance Urine Cloudy (Clear); Bacteria Urine 2+ /hpf; Bilirubin Urine Negative (Negative); Blood Urine Negative (Negative); Color Urine Dark Yellow (Yellow); Glucose Urine UA Negative (Negative); Ketones Urine Trace mg/dL (Negative); Leukocyte Esterase Ur Trace LEU/UL (Negative); Need Manual Microscopic Reviewed; Nitrate Urine Positive (Negative); Protein Urine 1+ mg/dL (Negative); Specific Grav Ur 1.025 (1.001-1.035); Squamous Epithelial Cell Urine Few /hpf (Few); WBC Urine 21-50 /hpf (0-3)
[2023-08-03 12:22] LABS: Add Urine Microscopic? YES
== END 2023-08-03 11:12 | disposition home or self-care (01) ==
PROVIDERS: PCP Family Medicine; Visit Provider Physician Assistant
DX: R30.0 Dysuria (principal)
CPT/HCPCS: 81001; 87077; 87086; 87088; 87186

== ENCOUNTER 2023-08-07 09:25 | Inpatient (IN) | payer MEDICARE, SELFPAY ==
[2023-08-07] VITALS (10 sets, daily range): BP systolic 107–138; BP diastolic 47–67; PULSE 83–111; RESP 14–24; TEMP 36–36.8; O2SAT 94–97
--- NOTE | ~2023-08-07 | XR_ITS ---
EXAMINATION: XR chest 2V 08/07/2023 10:05 INDICATION: Status post fall. Chest pain PROCEDURE: 2 view chest COMPARISON: Comparison to multiple prior studies sequentially, with oldest reviewed study dated 06/19. FINDINGS: The lungs are clear. The cardiomediastinal silhouette is within normal limits. There are no pleural effusions. There is no pneumothorax suspected. IMPRESSION: 1: NO ACUTE CARDIOPULMONARY DISEASE. Reviewed, dictated and finalized at location B.
--- NOTE | ~2023-08-07 | XR_ITS ---
XR hip BI 2V w AP pelvis 08/07/2023 10:05 Indication: Multiple falls. Hip pain. Procedure: AP pelvis and 2 views right hip Comparison: 07/27/2023 and 05/17/2023 Findings: There are bilateral hip arthroplasties. There is an acute fracture of the right greater tro chanter. The prosthesis remains well seated without evidence for loosening. Pelvic rings are intact. No acute fracture the left hip. There is lower lumbar spondylosis. Impression: 1: Acute minimally displaced fracture right greater trochanter. Right hip prosthesis remains well [place]. Reviewed, dictated and finalized at location B. Impression: 1: Acute minimally displaced fracture right greater trochanter. Right hip prost hesis remains well seated.
--- NOTE | 2023-08-07 09:37 | ECG_ITS ---
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 Measurements Intervals [place] Rate: 87 P: 73 MD: 152 QRS: -1 QRSD: 92 T: 54 QT: 358 QTc: 433 Interpretive Statements SINUS RHYTHM No previous ECG available for comparison Electronically Signed On 08-07-2023 12:09:25 CDT by Ramez Lutz M.D.
[2023-08-07 09:51] LABS: Basophils Percent Auto 0.5 % (0.2-1.2); Eosinophils Absolute Auto 0.4 K/mm3 (0-0.3); Hematocrit 32.7 % (42.0-52.0); Hemoglobin 10.4 g/dL (14.0-18.0); Immature Granulocyte Absolute 0.03 K/mm3 (0.00-0.031); Immature Granulocyte Percent A 0.4 % (0-0.5); Lymphocytes Absolute Auto 0.67 K/mm3 (0.9-3.2); Lymphocytes Percent Auto 8.9 % (18.3-44.2); Mean Corpuscular HGB Conc 31.8 g/dl (32-36); Mean Corpuscular Hemoglobin 30.4 pg (26-34); Mean Corpuscular Volume 95.6 fl (80-100); Mean Platelet Volume 9.6 fl (7.4-10.4); Monocytes Absolute Auto 0.5 K/mm3 (0.1-0.6); Monocytes Percent Auto 6.4 % (2.6-8.5); Neutrophils Absolute Auto 5.9 K/mm3 (1.3-6.7); Neutrophils Percent Auto 78.8 % (45.5-73.1); Platelet Count Result 299 k/mm3 (150-375); Red Blood Count 3.42 M/mm3 (4.6-6.20); Red Cell Distribution Width 15.9 % (11.5-14.5); White Blood Count 7.5 K/mm3 (4.5-10.0)
[2023-08-07 10:00] LABS: Alanine Aminotransferase 13 U/L (6-50); Albumin Level 3.9 g/dL (3.5-5.1); Alkaline Phosphatase 139 U/L (38-126); Anion Gap 7 mmol/L (4-12); Aspartate Amino Transferase 21 U/L (17-59); Bilirubin,Total 0.8 mg/dL (0.2-1.3); Blood Urea Nitrogen 15 mg/dL (9-20); Calcium 9.1 mg/dL (8.4-10.2); Carbon Dioxide 24 mmol/L (22-30); Chloride 107 mmol/L (98-107); Estimated CRCL calculation 36 ml/min; Estimated Glomerular Filt Rate 59; Glucose 109 mg/dL (65-110); Potassium 3.9 mmol/L (3.4-5.0); Sodium 138 mmol/L (137-145)
--- NOTE | 2023-08-07 10:51 | ED.FALL ---
HPI - Fall General Chief Complaint: Fall Stated Complaint: fall Time Seen by Provider: 08/07/23 09:38 Source: patient and family Mode of arrival: EMS Limitations: dementia History of Present Illness HPI Narrative: 78-year-old with a history of dementia, hypertension, frequent falls was brought in from home with the complaints of fall this morning. As per his is at the bedside and the primary historian states that he was trying to get up from the couch fell on to the floor and he was unable to get up. She denied any head and neck injuries. Patient complains of severe pain to his right hip. She also mentions that he fell 2 weeks ago was seen in the ER. He has been using a cane for ambulation at home complaint: fall Fall from: chair Fall witnessed: yes, by family Place fall occurred: home Symptoms prior to fall: none Location of injury: other (Right hip) Related Data Home Medications Medication Instructions Recorded Confirmed atorvastatin 80 mg tablet 80 mg PO HS 04/20/19 09/23/22 metoprolol tartrate 50 mg tablet 25 mg PO Q12H 04/20/19 09/23/22 aspirin 81 mg tablet,delayed 81 mg PO QHS 08/13/21 09/23/22 release (Adult Low Dose Aspirin) Allergies Allergy/AdvReac Type Severity Reaction Status Date / Time Penicillins Allergy Unknown Seizure Verified 07/27/23 07:31 cyclobenzaprine AdvReac Unknown Hallucinati Verified 07/27/23 07:31 ng oxybutynin AdvReac Unknown Hallucinati Verified 07/27/23 07:31 ng Review of Systems Review of Systems: All systems reviewed & are unremarkable except as noted in HPI and below Constitutional: Constitutional: Reports no additional constitutional complaints Eyes: Eyes: Reports no additional eye complaints ENT: Reports system reviewed and no additional complaints, except as documented Cardiovascular: Cardiovascular: Reports no additional cardiovascular complaints Respiratory: Respiratory: Reports no additional respiratory complaints Musculoskeletal: Musculoskeletal: Reports as per HPI Integumentary/Breasts: Skin/Breast: Reports system reviewed and no additional complaints, except as docu Neurologic: Reports system reviewed and no additional complaints, except as documented [facility] Past Medical History Medical History Angina at rest CAD (coronary artery disease) COPD (chronic obstructive pulmonary disease) HTN (hypertension) Hypercholesterolemia Inguinal hernia Myocardial infarction Obstructive sleep apnea does not use a c- pap Prostate cancer Seizures after taking pcn Tobacco abuse Surgical History Surgical History H/O angioplasty H/O cardiac catheterization H/O heart artery stent 2 H/O hemorrhoidectomy H/O inguinal hernia repair with mesh H/O prostatectomy Hx of appendectomy S/P total hip arthroplasty bilateral Status post implantation of artificial urinary sphincter Family History Family History Other Family history of heart disease in male family member before age 55 Malignant neoplasm of prostate Social History Social History Social History: he is and lives with his . He has 2 children. He is retired from [employer]. He still continues to smoke a pack of cigarettes a day. Code status full code Smoking packs per day: 0.5 Smoking cigarettes per day: 10.0 Years smoked: 60 Smoking pack-years: 30.00 Smoking status: Current every day smoker Tobacco type: cigarettes Second hand tobacco smoke exposure: No Alcohol intake: never Alcohol use details: Very rare Substance use: never Substance use type: does not use Lack of Transportation: No Lack of Food: Never True Current Housing: I Have Housing Concerned About Future Housing: No Difficulty Paying Gas/Electric Bills: No Difficulty P
[2023-08-07] MEDS: MORPHINE SULFATE (*CRX) 2 MG/ML INJ IV PUSH (11:18)
[2023-08-07] MEDS: SODIUM CHLORIDE 0.9% IV 1,000 ML 75 ML IV CONT (11:19)
--- NOTE | 2023-08-07 11:30 | PM.IMHP ---
H&P: HPI History of Present Illness Date/Time: 08/07/23 11:30 Chief Complaint: a fall and right hip pain Narrative: Patient has a profound dementia, history is taken from patient's patient's son and patient ER physician 78-year-old with a history of dementia, hypertension, hyperlipidemia, psychiatric disorders, per the ED because of fall. patient had a frequent fall recently is. Patient was sitting in a chair, fell on the floor on the right hip. Patient sustained severe pain of right hip, could not stand up and ambulate. Patient denied loss consciousness, denies hitting head, patient also denies chest pain shortness of breath, lightheadedness. patient did not have nausea vomiting diarrhea dysuria. Patient was brought to ED for further evaluation and treatment. upon arrival in the ED, patient was afebrile, blood pressure stable, pulse ox 95 more room air, lab showed chronic anemia, hemoglobin 10.4 on baseline, elevated BUN creatinine close to baseline, GFR 59,, EKG shows sinus rhythm no specific ST T-wave changes, x-ray showed acute minimal displaced fracture right greater trochanter, processes remain sealed without evidence of loosening. ER physician consulted the orthopedic doctor, orthopedic surgeon considers patient does not need surgical treatment, recommend pain management, and patient need rehab placement because patient cannot ambulate without assistance Review of Systems Review of Systems: ROS negative except above PMFSH Past Medical History Medical History Angina at rest CAD (coronary artery disease) COPD (chronic obstructive pulmonary disease) HTN (hypertension) Hypercholesterolemia Inguinal hernia Myocardial infarction Obstructive sleep apnea does not use a c- pap Prostate cancer Seizures after taking pcn Tobacco abuse Surgical History Surgical History H/O angioplasty H/O cardiac catheterization H/O heart artery stent 2 H/O hemorrhoidectomy H/O inguinal hernia repair with mesh H/O prostatectomy Hx of appendectomy S/P total hip arthroplasty bilateral Status post implantation of artificial urinary sphincter Family History Family History Other Family history of heart disease in male family member before age 55 Malignant neoplasm of prostate Social History Social History Social History: he is and lives with his . He has 2 children. He is retired from [employer]. He still continues to smoke a pack of cigarettes a day. Code status full code Smoking packs per day: 0.5 Smoking cigarettes per day: 10.0 Years smoked: 60 Smoking pack-years: 30.00 Smoking status: Current every day smoker Tobacco type: cigarettes Second hand tobacco smoke exposure: No Alcohol intake: never Alcohol use details: Very rare Substance use: never Substance use type: does not use Lack of Transportation: No Lack of Food: Never True Current Housing: I Have Housing Concerned About Future Housing: No Difficulty Paying Gas/Electric Bills: No Difficulty Paying for Meds: No Currently Unemployed: No Education: High School Diploma/GED Difficulty w/ Childcare or Family Care: No Living arrangements: with family Occupation/Education: retired Gender identity (if verbalized by the patient): Male Sexual Orientation (if Verbalized by the Patient): Straight or Heterosexual Spiritual care concerns: No Meds Home Medications and Allergies Home Medications Medication Instructions Recorded Confirmed Type atorvastatin 80 mg tablet 80 mg PO HS 04/20/19 09/23/22 History metoprolol tartrate 50 mg tablet 25 mg PO Q12H 04/20/19 09/23/22 History aspirin 81 mg tablet,delayed 81 mg PO QHS 08/13/21 09/23/22 History release (Adult Low Dose Aspirin) n
--- NOTE | 2023-08-07 12:12 | ADMGEN ---
This patient, Villa Du, was admitted to Medical Room 343-01. Patient/family oriented to hospital policies and general routines including ID bracelet, bed and alarms, visiting hours, pain management, procedures, bathroom and other care routines, personal items, smoking policy, room service/diet, and visiting hours. Information on how to activate the Rapid Response Team has been discussed. Patient/Family are encouraged to report perceived risks to care and to ask questions if they do not understand what they are told or what they should do.
--- NOTE | 2023-08-07 12:49 | PCOTNOTE ---
Therapy orders received. Patient needing orthopedic consult prior to therapy evaluation. Will follow.
[2023-08-08 03:11] VITALS: BP 130/57; PULSE 94; RESP 18; TEMP 36.4; O2SAT 94
--- NOTE | 2023-08-08 08:36 | PCOTNOTE ---
Spoke with LEILA Severino for Dr. Benitez, regarding weight bearing status, with confirmation of Light Partial Weight Bearing on R LE.
--- NOTE | 2023-08-08 09:01 | PCPTNOTE ---
Attempted PT evaluation, pt adamantly refused to participate in skilled therapy. RN aware. Will follow.
--- NOTE | 2023-08-08 09:02 | PCOTNOTE ---
Attempted to see pt. for occupational therapy evaluation. Pt. is refusing to participate with agitation. Spouse and sitter present. Nursing aware.
--- NOTE | 2023-08-08 09:20 | PM.IMPN ---
Progress Note: A&P Assessment and Plan (1) Frequent falls: Code(s): R29.6 - Repeated falls Status: Acute (2) Hip fracture, right: Qualifiers: Encounter type: initial encounter Fracture type: closed Qualified Code(s): S72.001A - Fracture of unspecified part of neck of right femur, initial encounter for closed fracture Code(s): S72.001A - Fracture of unspecified part of neck of right femur, initial encounter for closed fracture Status: Acute (3) Dementia: Qualifiers: Alzheimer's disease onset: unspecified onset Dementia behavioral or psychological symptom: without behavioral, psychotic, or mood disturbance or anxiety Dementia severity: unspecified severity Dementia type: Alzheimer's Qualified Code(s): G30.9 - Alzheimer's disease, unspecified; F02.80 - Dementia in other diseases classified elsewhere, unspecified severity, without behavioral disturbance, psychotic disturbance, mood disturbance, and anxiety Code(s): F03.90 - Unspecified dementia, unspecified severity, without behavioral disturbance, psychotic disturbance, mood disturbance, and anxiety Status: Acute (4) Constipation: Qualifiers: Constipation type: slow transit constipation Qualified Code(s): K59.01 - Slow transit constipation Code(s): K59.00 - Constipation, unspecified Status: Acute (5) Anemia: Qualifiers: Anemia type: iron deficiency Iron deficiency anemia type: other iron deficiency Qualified Code(s): D50.8 - Other iron deficiency anemias Code(s): D64.9 - Anemia, unspecified Status: Acute (6) COPD (chronic obstructive pulmonary disease): Qualifiers: COPD type: emphysema Emphysema type: unspecified Qualified Code(s): J43.9 - Emphysema, unspecified Code(s): J44.9 - Chronic obstructive pulmonary disease, unspecified Status: Acute (7) HTN (hypertension): Code(s): I10 - Essential (primary) hypertension Status: Acute (8) Delirium: Code(s): R41.0 - Disorientation, unspecified Status: Acute Plan delirium, patient was agitated, had visual hallucination, per patient's statement, patient was in similar situation when patient had UTI possible due to dehydration, uncontrolled pain, and also UTI, provide Zyprexa 10 mg IM once start fluid resuscitation Follow CBC BMP urinalysis Start ceftriaxone IV once neuro check Right hip fracture patient had a fall on the right hip and patient has right hip pain since then No focal weakness Acute minimally displaced fracture right greater trochanter. Right hip prosthesis remains well seated on x-r optimize pain management Consult PT OT health care attorney for evaluation assisting placement Also placed surgeon considers patient does not need surgical treatment dementia Patient is not oriented to place and time, oriented to person only, baseline Continue home medication the night episode 10 mg daily p.o. Essential hypertension Continue amlodipine 2.5 mg daily p.o., metoprolol 25 mg b.i.d. p.o. Hyperlipidemia Continue Lipitor 80 mg daily p.o. GERD Continue omeprazole 40 mg daily p.o. CKD stage 3 Avoid nephrotoxic medication Follow-up BMP Chronic anemia Patient does not have active bleeding Hemoglobin close to baseline Follow-up CBC Psychiatry disorder Continue quetiapine 25 mg bedtime p.o. Per patient's , patient wishes DNR DNI. the code status was discussed with patient saw and patient's patient may stay more than 2 midnights in the hospital Subjective Date/time seen: 08/08/23 09:20 Interval history: I saw and examined the patient today, patient was agitated, tried to climb out of bed, patient was confused, had to visual hallucination. Patient was afebrile over stable. Exam Narrative: GENERAL: Pleasant, in no acute distress. Well-nourished. - EYES: EOMI. Anicteric. - HENT: Eduardo
[2023-08-08] MEDS: OLANZapine 10 MG INJ VIAL IM (11:12)
[2023-08-08] MEDS: SULFAMETHOXAZOLE/TRIMETHOPRIM 800/160 MG DS TABLET 1 TAB PO (11:20)
[2023-08-08 11:24] VITALS: PULSE 88
[2023-08-08] MEDS: ENOXAPARIN 40 MG/0.4 ML SYRINGE SUB-Q (11:24)
[2023-08-08] MEDS: METOPROLOL TARTRATE 25 MG TABLET PO (11:24)
[2023-08-08 11:42] VITALS: BMI 18.6
[2023-08-08 12:10] VITALS: PULSE 110; RESP 22; O2SAT 94
[2023-08-08 13:01] LABS: Appearance Urine Clear (Clear); Bilirubin Urine Negative (Negative); Blood Urine Negative (Negative); Color Urine Yellow (Yellow); Glucose Urine UA Negative (Negative); Ketones Urine 1+ mg/dL (Negative); Leukocyte Esterase Ur Negative LEU/UL (Negative); Nitrate Urine Negative (Negative); Protein Urine Negative (Negative)
[2023-08-08] MEDS: DEXTROSE 5%/LACTATED RINGERS 1,000 ML 100 ML IV CONT (13:02)
[2023-08-08 13:06] LABS: Add Urine Microscopic? NO
[2023-08-08 15:02] VITALS: BP 91/63; PULSE 90; RESP 22; TEMP 36.8; O2SAT 96
--- NOTE | 2023-08-08 16:08 | PM.CNOR ---
Assessment and Plan Assessment and plan (1) Fracture of greater trochanter of right femur: Qualifiers: Encounter type: initial encounter Fracture type: closed Fracture alignment: nondisplaced Qualified Code(s): S72.114A - Nondisplaced fracture of greater trochanter of right femur, initial encounter for closed fracture Code(s): S72.111A - Displaced fracture of greater trochanter of right femur, initial encounter for closed fracture Status: Acute Assessment and Plan: This gentleman is a 78-year-old male who is brought into the emergency room by his yesterday. He has rather severe dementia and she is his full-time caregiver. He has had multiple falls and by the ER note history apparently fell off the couch he was unable to get up he was brought to the emergency room where x-rays of both hips were obtained and he has bilateral hip replacements without radiographic complication except for a nondisplaced greater trochanter fracture of the right hip. I do not see any fractures around the shaft and the implant looks well fixed so this should be a stable injury. I personally reviewed his x-rays. He also had x-rays the right hip on July 26 and I did not see a greater trochanter fracture on those x-rays. On exam he is nonverbal he does not respond to commands. He does not exhibit a great deal of pain with a little bit of movement of his right hip but he guards so much the wound relax on command making the assessment difficult. He has rather substantial medical problems which are reviewed. I have recommended that is weight-bearing be restricted. We will have him be light partial weight-bearing for transfers. I do not know how well he will be able to cooperate with physical therapy but if his weight-bearing is limited transfers only light partial weight-bearing this should limit the probability of displacement of the fracture. His dementia is quite severe and now that he is not able to ambulate his is unable to care for him at home and assisted placement is underweight. I recommended Lovenox for 5 weeks for DVT prophylaxis and I would like to see him in the office in 1 month for x-rays to assess healing. History of Present Illness HPI Consult date: 08/08/23 Chief complaint: right hip fracture PMFSH Past Medical History Medical History Angina at rest CAD (coronary artery disease) COPD (chronic obstructive pulmonary disease) HTN (hypertension) Hypercholesterolemia Inguinal hernia Myocardial infarction Obstructive sleep apnea does not use a c- pap Prostate cancer Seizures after taking pcn Tobacco abuse Surgical History Surgical History H/O angioplasty H/O cardiac catheterization H/O heart artery stent 2 H/O hemorrhoidectomy H/O inguinal hernia repair with mesh H/O prostatectomy Hx of appendectomy S/P total hip arthroplasty bilateral Status post implantation of artificial urinary sphincter Family History Family History Other Family history of heart disease in male family member before age 55 Malignant neoplasm of prostate Social History Social History Social History: he is and lives with his . He has 2 children. He is retired from [employer]. He still continues to smoke a pack of cigarettes a day. Code status full code Smoking packs per day: 0.5 Smoking cigarettes per day: 10.0 Years smoked: 60 Smoking pack-years: 30.00 Smoking status: Current every day smoker Second hand tobacco smoke exposure: No Alcohol intake: never Alcohol use details: Very rare Substance use: never Substance use type: does not use Lack of Transportation: No Lack of Food: Never True Current Housing: I Have Housing Concerned About Future Housing: No Dif
--- NOTE | 2023-08-08 19:15 | PC.NURSE ---
Patient was combative even with sitter in room. Patient resist lab draws and became combative. Patient pulls and IV lines and administering IV fluids at this time.
[2023-08-08 19:40] VITALS: BP 96/59; PULSE 91; RESP 20; TEMP 36.7; O2SAT 99
[2023-08-09 05:13] VITALS: BP 110/93; PULSE 89; RESP 20; TEMP 36.2; O2SAT 93
[2023-08-09] MEDS: ASPIRIN 81 MG ENTERIC TABLET PO (08:18)
[2023-08-09] MEDS: amLODIPine BESYLATE 2.5 MG TABLET PO (08:18)
[2023-08-09] MEDS: SULFAMETHOXAZOLE/TRIMETHOPRIM 800/160 MG DS TABLET 1 TAB PO (08:18)
[2023-08-09 08:26] VITALS: BMI 10.0
[2023-08-09 08:27] VITALS: PULSE 80
[2023-08-09] MEDS: METOPROLOL TARTRATE 25 MG TABLET PO (08:27)
--- NOTE | 2023-08-09 08:30 | PM.IMPN ---
Progress Note: A&P Assessment and Plan (1) Frequent falls: Code(s): R29.6 - Repeated falls Status: Acute (2) Hip fracture, right: Qualifiers: Encounter type: initial encounter Fracture type: closed Qualified Code(s): S72.001A - Fracture of unspecified part of neck of right femur, initial encounter for closed fracture Code(s): S72.001A - Fracture of unspecified part of neck of right femur, initial encounter for closed fracture Status: Acute (3) Dementia: Qualifiers: Alzheimer's disease onset: unspecified onset Dementia behavioral or psychological symptom: without behavioral, psychotic, or mood disturbance or anxiety Dementia severity: unspecified severity Dementia type: Alzheimer's Qualified Code(s): G30.9 - Alzheimer's disease, unspecified; F02.80 - Dementia in other diseases classified elsewhere, unspecified severity, without behavioral disturbance, psychotic disturbance, mood disturbance, and anxiety Code(s): F03.90 - Unspecified dementia, unspecified severity, without behavioral disturbance, psychotic disturbance, mood disturbance, and anxiety Status: Acute (4) Constipation: Qualifiers: Constipation type: slow transit constipation Qualified Code(s): K59.01 - Slow transit constipation Code(s): K59.00 - Constipation, unspecified Status: Acute (5) Anemia: Qualifiers: Anemia type: iron deficiency Iron deficiency anemia type: other iron deficiency Qualified Code(s): D50.8 - Other iron deficiency anemias Code(s): D64.9 - Anemia, unspecified Status: Acute (6) COPD (chronic obstructive pulmonary disease): Qualifiers: COPD type: emphysema Emphysema type: unspecified Qualified Code(s): J43.9 - Emphysema, unspecified Code(s): J44.9 - Chronic obstructive pulmonary disease, unspecified Status: Acute (7) HTN (hypertension): Code(s): I10 - Essential (primary) hypertension Status: Acute (8) Delirium: Code(s): R41.0 - Disorientation, unspecified Status: Acute Plan delirium, patient was agitated, had visual hallucination, per patient's statement, patient was in similar situation when patient had UTI possible due to dehydration, uncontrolled pain, and also UTI, provide Zyprexa 10 mg IM once start fluid resuscitation Follow CBC BMP urinalysis Start ceftriaxone IV once neuro check UTI Urinalysis August 02 suggests UTI, patient has pyuria, microscopic hematuria did not receive antibiotics Continue ceftriaxone IV Right hip fracture patient had a fall on the right hip and patient has right hip pain since then No focal weakness Acute minimally displaced fracture right greater trochanter. Right hip prosthesis remains well seated on x-r optimize pain management Consult PT OT lead caregiver for evaluation assisting placement Also placed surgeon considers patient does not need surgical treatment dementia Patient is not oriented to place and time, oriented to person only, baseline Continue home medication the night episode 10 mg daily p.o. Essential hypertension Continue amlodipine 2.5 mg daily p.o., metoprolol 25 mg b.i.d. p.o. Hyperlipidemia Continue Lipitor 80 mg daily p.o. GERD Continue omeprazole 40 mg daily p.o. CKD stage 3 Avoid nephrotoxic medication Follow-up BMP Chronic anemia Patient does not have active bleeding Hemoglobin close to baseline Follow-up CBC Psychiatry disorder Continue quetiapine 25 mg bedtime p.o. Per patient's , patient wishes DNR DNI. the code status was discussed with patient saw and patient's patient may stay more than 2 midnights in the hospital Subjective Date/time seen: 08/09/23 08:30 Interval history: I saw and examined the patient today, patient still confused, not oriented x3, restless, no obvious distress. Patient was afebrile over stable. E
--- NOTE | 2023-08-09 11:07 | PC.NURSE ---
Patient has pulled out second IV. Dr Horton was called to make away. Orders to give zyprexa 10mg prior to attempting new IV
--- NOTE | 2023-08-09 11:37 | PCOTNOTE ---
Attempted occupational therapy evaluation. Pt. is unable to follow directions and is becoming increasingly agitated during attempt, due to safety concerns did not continue. Nursing aware. Mary present.
[2023-08-09] MEDS: OLANZapine 10 MG, WATER, STERILE FOR INJECTION 2.1 ML IM (12:34)
[2023-08-09] MEDS: ENOXAPARIN 40 MG/0.4 ML SYRINGE SUB-Q (12:35)
[2023-08-09 15:07] LABS: Basophils Absolute Auto 0.1 K/mm3 (0.0-0.1); Basophils Percent Auto 0.3 % (0.2-1.2); Eosinophils Absolute Auto 0.1 K/mm3 (0-0.3); Eosinophils Percent Auto 0.4 % (0-4.4); Hematocrit 36.8 % (42.0-52.0); Hemoglobin 11.5 g/dL (14.0-18.0); Immature Granulocyte Absolute 0.06 K/mm3 (0.00-0.031); Immature Granulocyte Percent A 0.4 % (0-0.5); Lymphocytes Absolute Auto 0.93 K/mm3 (0.9-3.2); Mean Corpuscular HGB Conc 31.3 g/dl (32-36); Mean Corpuscular Hemoglobin 30.3 pg (26-34); Mean Corpuscular Volume 97.1 fl (80-100); Mean Platelet Volume 9.8 fl (7.4-10.4); Monocytes Absolute Auto 1.3 K/mm3 (0.1-0.6); Monocytes Percent Auto 8.2 % (2.6-8.5); Neutrophils Absolute Auto 13.1 K/mm3 (1.3-6.7); Neutrophils Percent Auto 84.7 % (45.5-73.1); Platelet Count Result 329 k/mm3 (150-375); Red Blood Count 3.79 M/mm3 (4.6-6.20); Red Cell Distribution Width 15.6 % (11.5-14.5); White Blood Count 15.5 K/mm3 (4.5-10.0)
[2023-08-09 15:20] LABS: Anion Gap 10 mmol/L (4-12); Blood Urea Nitrogen 20 mg/dL (9-20); Calcium 9.4 mg/dL (8.4-10.2); Carbon Dioxide 23 mmol/L (22-30); Chloride 110 mmol/L (98-107); Estimated CRCL calculation 36 ml/min; Estimated Glomerular Filt Rate 59; Glucose 151 mg/dL (65-110); Magnesium 2.3 mg/dL (1.6-2.3); Phosphorus 3.1 mg/dL (2.5-4.5); Potassium 3.9 mmol/L (3.4-5.0); Sodium 143 mmol/L (137-145)
[2023-08-09 16:01] VITALS: PULSE 100; RESP 20; O2SAT 93
[2023-08-09] MEDS: DEXTROSE 5%/LACTATED RINGERS 1,000 ML 100 ML IV CONT ×2 (17:17→20:13)
[2023-08-09 20:12] VITALS: BP 134/101; PULSE 103; RESP 16; TEMP 37.5; O2SAT 91
[2023-08-10 04:36] VITALS: BP 94/58; PULSE 84; RESP 20; TEMP 36.5; O2SAT 91
[2023-08-10] MEDS: DEXTROSE 5%/LACTATED RINGERS 1,000 ML 100 ML IV CONT ×2 (05:10→17:14)
[2023-08-10 07:13] VITALS: O2SAT 92
--- NOTE | 2023-08-10 08:41 | PM.IMPN ---
Progress Note: A&P Assessment and Plan (1) Frequent falls: Code(s): R29.6 - Repeated falls Status: Acute (2) Hip fracture, right: Qualifiers: Encounter type: initial encounter Fracture type: closed Qualified Code(s): S72.001A - Fracture of unspecified part of neck of right femur, initial encounter for closed fracture Code(s): S72.001A - Fracture of unspecified part of neck of right femur, initial encounter for closed fracture Status: Acute (3) Dementia: Qualifiers: Alzheimer's disease onset: unspecified onset Dementia behavioral or psychological symptom: without behavioral, psychotic, or mood disturbance or anxiety Dementia severity: unspecified severity Dementia type: Alzheimer's Qualified Code(s): G30.9 - Alzheimer's disease, unspecified; F02.80 - Dementia in other diseases classified elsewhere, unspecified severity, without behavioral disturbance, psychotic disturbance, mood disturbance, and anxiety Code(s): F03.90 - Unspecified dementia, unspecified severity, without behavioral disturbance, psychotic disturbance, mood disturbance, and anxiety Status: Acute (4) Constipation: Qualifiers: Constipation type: slow transit constipation Qualified Code(s): K59.01 - Slow transit constipation Code(s): K59.00 - Constipation, unspecified Status: Acute (5) Anemia: Qualifiers: Anemia type: iron deficiency Iron deficiency anemia type: other iron deficiency Qualified Code(s): D50.8 - Other iron deficiency anemias Code(s): D64.9 - Anemia, unspecified Status: Acute (6) COPD (chronic obstructive pulmonary disease): Qualifiers: COPD type: emphysema Emphysema type: unspecified Qualified Code(s): J43.9 - Emphysema, unspecified Code(s): J44.9 - Chronic obstructive pulmonary disease, unspecified Status: Acute (7) HTN (hypertension): Code(s): I10 - Essential (primary) hypertension Status: Acute (8) Delirium: Code(s): R41.0 - Disorientation, unspecified Status: Acute Plan delirium, patient was agitated, had visual hallucination upon arrival per patient's statement, patient was in similar situation when patient had UTI possible due to dehydration, uncontrolled pain, and also UTI, provided Zyprexa 10 mg IM start fluid resuscitation patient is on ceftriaxone IV for UTI neuro check patient is calm now dehydration is improving continue D5 night Ringer 100 mL/hour today UTI Urinalysis August 02 suggests UTI, patient has pyuria, microscopic hematuria did not receive antibiotics Continue ceftriaxone IV leukocytosis persists on ceftriaxone Order a chest x-ray, need to rule out aspiration Right hip fracture patient had a fall on the right hip and patient has right hip pain since then No focal weakness Acute minimally displaced fracture right greater trochanter. Right hip prosthesis remains well seated on x-r optimize pain management Consult PT OT care provider for evaluation assisting placement Also placed surgeon considers patient does not need surgical treatment dementia Patient is not oriented to place and time, oriented to person only, baseline Continue home medication the night episode 10 mg daily p.o. Essential hypertension Continue amlodipine 2.5 mg daily p.o., metoprolol 25 mg b.i.d. p.o. Hyperlipidemia Continue Lipitor 80 mg daily p.o. GERD Continue omeprazole 40 mg daily p.o. CKD stage 3 Avoid nephrotoxic medication Follow-up BMP Chronic anemia Patient does not have active bleeding Hemoglobin close to baseline Follow-up CBC Psychiatry disorder Continue quetiapine 25 mg bedtime p.o. Per patient's , patient wishes DNR DNI. the code status was discussed with patient saw and patient's patient may stay more than 2 midnights in the hospital Subjective Date/time seen: 08/10/23 08:41
[2023-08-10 09:19] LABS: Basophils Percent Auto 0.1 % (0.2-1.2); Eosinophils Absolute Auto 0.1 K/mm3 (0-0.3); Eosinophils Percent Auto 0.3 % (0-4.4); Hemoglobin 10.9 g/dL (14.0-18.0); Immature Granulocyte Percent A 0.6 % (0-0.5); Lymphocytes Absolute Auto 0.64 K/mm3 (0.9-3.2); Lymphocytes Percent Auto 3.9 % (18.3-44.2); Mean Corpuscular HGB Conc 31.1 g/dl (32-36); Mean Corpuscular Hemoglobin 29.9 pg (26-34); Mean Corpuscular Volume 95.9 fl (80-100); Mean Platelet Volume 9.8 fl (7.4-10.4); Monocytes Absolute Auto 1.5 K/mm3 (0.1-0.6); Monocytes Percent Auto 8.9 % (2.6-8.5); Neutrophils Absolute Auto 14.1 K/mm3 (1.3-6.7); Neutrophils Percent Auto 86.2 % (45.5-73.1); Platelet Count Result 301 k/mm3 (150-375); Red Blood Count 3.65 M/mm3 (4.6-6.20); Red Cell Distribution Width 15.8 % (11.5-14.5); White Blood Count 16.4 K/mm3 (4.5-10.0)
[2023-08-10] MEDS: ASPIRIN 81 MG ENTERIC TABLET PO (09:23)
[2023-08-10] MEDS: SULFAMETHOXAZOLE/TRIMETHOPRIM 800/160 MG DS TABLET 1 TAB PO (09:25)
[2023-08-10 09:26] LABS: Anion Gap 6 mmol/L (4-12); Blood Urea Nitrogen 15 mg/dL (9-20); Calcium 8.9 mg/dL (8.4-10.2); Carbon Dioxide 26 mmol/L (22-30); Chloride 109 mmol/L (98-107); Estimated CRCL calculation 42 ml/min; Estimated Glomerular Filt Rate > 60; Glucose 129 mg/dL (65-110); Potassium 3.2 mmol/L (3.4-5.0); Sodium 141 mmol/L (137-145)
[2023-08-10 09:45] LABS: Crenated RBC 2+; Platelet Estimate Adequate (Adequate); Schistocytes None Seen
[2023-08-10 14:00] VITALS: BP 102/56; PULSE 99; RESP 20; TEMP 36.8; O2SAT 95
[2023-08-10 15:22] LABS: Basophils Percent Auto 0.1 % (0.2-1.2); Eosinophils Percent Auto 0.3 % (0-4.4); Hematocrit 32.2 % (42.0-52.0); Hemoglobin 10.3 g/dL (14.0-18.0); Immature Granulocyte Absolute 0.08 K/mm3 (0.00-0.031); Immature Granulocyte Percent A 0.5 % (0-0.5); Lymphocytes Absolute Auto 0.86 K/mm3 (0.9-3.2); Lymphocytes Percent Auto 5.7 % (18.3-44.2); Mean Corpuscular Hemoglobin 30.7 pg (26-34); Mean Corpuscular Volume 95.8 fl (80-100); Monocytes Absolute Auto 1.4 K/mm3 (0.1-0.6); Monocytes Percent Auto 9.3 % (2.6-8.5); Neutrophils Absolute Auto 12.7 K/mm3 (1.3-6.7); Neutrophils Percent Auto 84.1 % (45.5-73.1); Platelet Count Result 282 k/mm3 (150-375); Red Blood Count 3.36 M/mm3 (4.6-6.20); Red Cell Distribution Width 15.6 % (11.5-14.5); White Blood Count 15.1 K/mm3 (4.5-10.0)
[2023-08-10 15:32] LABS: Anion Gap 6 mmol/L (4-12); Blood Urea Nitrogen 17 mg/dL (9-20); Calcium 8.8 mg/dL (8.4-10.2); Carbon Dioxide 26 mmol/L (22-30); Chloride 107 mmol/L (98-107); Estimated CRCL calculation 47 ml/min; Estimated Glomerular Filt Rate > 60; Glucose 115 mg/dL (65-110); Magnesium 2.1 mg/dL (1.6-2.3); Phosphorus 2.3 mg/dL (2.5-4.5); Potassium 3.2 mmol/L (3.4-5.0); Sodium 139 mmol/L (137-145)
[2023-08-10] MEDS: cilostazoL 100 MG TABLET PO (17:14)
[2023-08-10 19:28] VITALS: BP 102/48; PULSE 100; RESP 18; TEMP 36.6; O2SAT 95
[2023-08-10] MEDS: DONEPEZIL HCL 10 MG TABLET PO (21:13)
[2023-08-10] MEDS: QUEtiapine FUMARATE 25 MG TABLET 50 MG PO (21:13)
[2023-08-10] MEDS: ATORVASTATIN 40 MG TABLET 80 MG PO (21:13)
[2023-08-10 21:56] VITALS: BP 110/45
[2023-08-10 22:01] VITALS: PULSE 100
[2023-08-10] MEDS: METOPROLOL TARTRATE 25 MG TABLET PO (22:01)
[2023-08-11 04:04] VITALS: BP 97/48; PULSE 89; RESP 18; TEMP 36.5; O2SAT 92
[2023-08-11] MEDS: cilostazoL 100 MG TABLET PO ×2 (06:04→17:22)
[2023-08-11 08:38] LABS: Basophils Percent Auto 0.2 % (0.2-1.2); Eosinophils Absolute Auto 0.2 K/mm3 (0-0.3); Eosinophils Percent Auto 2.1 % (0-4.4); Hematocrit 29.1 % (42.0-52.0); Hemoglobin 9.3 g/dL (14.0-18.0); Immature Granulocyte Absolute 0.06 K/mm3 (0.00-0.031); Immature Granulocyte Percent A 0.6 % (0-0.5); Lymphocytes Percent Auto 6.5 % (18.3-44.2); Mean Corpuscular Hemoglobin 30.4 pg (26-34); Mean Corpuscular Volume 95.1 fl (80-100); Mean Platelet Volume 10.2 fl (7.4-10.4); Monocytes Absolute Auto 0.9 K/mm3 (0.1-0.6); Monocytes Percent Auto 8.4 % (2.6-8.5); Neutrophils Absolute Auto 8.8 K/mm3 (1.3-6.7); Neutrophils Percent Auto 82.2 % (45.5-73.1); Platelet Count Result 262 k/mm3 (150-375); Red Blood Count 3.06 M/mm3 (4.6-6.20); Red Cell Distribution Width 15.4 % (11.5-14.5); White Blood Count 10.7 K/mm3 (4.5-10.0)
[2023-08-11] MEDS: ASPIRIN 81 MG ENTERIC TABLET PO (08:58)
[2023-08-11] MEDS: ENOXAPARIN 40 MG/0.4 ML SYRINGE SUB-Q (09:05)
[2023-08-11 11:00] LABS: Anion Gap 3 mmol/L (4-12); Blood Urea Nitrogen 15 mg/dL (9-20); Calcium 8.7 mg/dL (8.4-10.2); Carbon Dioxide 28 mmol/L (22-30); Chloride 108 mmol/L (98-107); Estimated CRCL calculation 47 ml/min; Estimated Glomerular Filt Rate > 60; Glucose 113 mg/dL (65-110); Potassium 3.1 mmol/L (3.4-5.0); Sodium 139 mmol/L (137-145)
--- NOTE | 2023-08-11 13:20 | PCNFU ---
Nutrition Follow-Up Complete: Severe malnutrition related to chronic dementia, loss of appetite as evidenced by intakes <50% needs >1 month; severe muscle wasting to temporal, clavicles, calves; moderate fat loss to buccal fat pads and ribs. Goal: PO intake at least 50% meals and supplements Patient has limited progress towards goal. We will continue current goal. Pt current nutrition is Regular with Nutrition Ice Cream BID and Enlive TID. Last recorded weight is 54.1 kg, no new weight to report. Bowel Motility: +BM reported 08/04 Labs Reviewed:Glu 115,Cr 3.2,Hct 32.2, Hgb 10.3 Meds Noted: Lovenox, Seroquel Skin: WNL Additional Notes: Nutrition follow up. Patient continues to have limited intake x 5 days. Sips of Ensure supplements noted per nursing. Spoke with Care Coordination today, discussion regarding hospice referral. Agree with diet orders. Monitoring intakes, weights, labs, supplement tolerance, plan of care Follow up in 5 days
[2023-08-11 14:00] VITALS: BP 128/90; PULSE 87; RESP 18; TEMP 36.7; O2SAT 93
--- NOTE | 2023-08-11 15:25 | PM.IMPN ---
Progress Note: A&P Assessment and Plan (1) Frequent falls: Code(s): R29.6 - Repeated falls Status: Acute (2) Hip fracture, right: Qualifiers: Encounter type: initial encounter Fracture type: closed Qualified Code(s): S72.001A - Fracture of unspecified part of neck of right femur, initial encounter for closed fracture Code(s): S72.001A - Fracture of unspecified part of neck of right femur, initial encounter for closed fracture Status: Acute (3) Dementia: Qualifiers: Alzheimer's disease onset: unspecified onset Dementia behavioral or psychological symptom: without behavioral, psychotic, or mood disturbance or anxiety Dementia severity: unspecified severity Dementia type: Alzheimer's Qualified Code(s): G30.9 - Alzheimer's disease, unspecified; F02.80 - Dementia in other diseases classified elsewhere, unspecified severity, without behavioral disturbance, psychotic disturbance, mood disturbance, and anxiety Code(s): F03.90 - Unspecified dementia, unspecified severity, without behavioral disturbance, psychotic disturbance, mood disturbance, and anxiety Status: Acute (4) Constipation: Qualifiers: Constipation type: slow transit constipation Qualified Code(s): K59.01 - Slow transit constipation Code(s): K59.00 - Constipation, unspecified Status: Acute (5) Anemia: Qualifiers: Anemia type: iron deficiency Iron deficiency anemia type: other iron deficiency Qualified Code(s): D50.8 - Other iron deficiency anemias Code(s): D64.9 - Anemia, unspecified Status: Acute (6) COPD (chronic obstructive pulmonary disease): Qualifiers: COPD type: emphysema Emphysema type: unspecified Qualified Code(s): J43.9 - Emphysema, unspecified Code(s): J44.9 - Chronic obstructive pulmonary disease, unspecified Status: Acute (7) HTN (hypertension): Code(s): I10 - Essential (primary) hypertension Status: Acute (8) Delirium: Code(s): R41.0 - Disorientation, unspecified Status: Acute Plan delirium, patient was agitated, had visual hallucination upon arrival per patient's statement, patient was in similar situation when patient had UTI possible due to dehydration, uncontrolled pain, and also UTI, provided Zyprexa 10 mg IM start fluid resuscitation patient is on ceftriaxone IV for UTI neuro check patient is calm now dehydration is improving received D5 night Ringer 100 mL/hour today corrected, patient is able to eat drink, discontinue IV fluid UTI Urinalysis August 02 suggests UTI, patient has pyuria, microscopic hematuria did not receive antibiotics received ceftriaxone IV urine culture grows E coli Change to Bactrim p.o. Right hip fracture patient had a fall on the right hip and patient has right hip pain since then No focal weakness Acute minimally displaced fracture right greater trochanter. Right hip prosthesis remains well seated on x-r optimize pain management Consult PT OT nanny caregiver for evaluation assisting placement Also placed surgeon considers patient does not need surgical treatment dementia Patient is not oriented to place and time, oriented to person only, baseline Continue home medication the night episode 10 mg daily p.o. Essential hypertension Continue amlodipine 2.5 mg daily p.o., metoprolol 25 mg b.i.d. p.o. Hyperlipidemia Continue Lipitor 80 mg daily p.o. GERD Continue omeprazole 40 mg daily p.o. CKD stage 3 Avoid nephrotoxic medication Follow-up BMP Chronic anemia Patient does not have active bleeding Hemoglobin close to baseline Follow-up CBC Psychiatry disorder Continue quetiapine 25 mg bedtime p.o. Per patient's , patient wishes DNR DNI. the code status was discussed with patient saw and patient's patient may stay more than 2 midnights in the hospital patient has a p
[2023-08-11] MEDS: SULFAMETHOXAZOLE/TRIMETHOPRIM 800/160 MG DS TABLET 1 TAB PO (17:22)
[2023-08-11 20:58] VITALS: BP 122/58; PULSE 82; RESP 18; TEMP 36.6; O2SAT 92
[2023-08-11] MEDS: ATORVASTATIN 40 MG TABLET 80 MG PO (21:09)
[2023-08-11] MEDS: QUEtiapine FUMARATE 25 MG TABLET 50 MG PO (21:09)
[2023-08-11] MEDS: DONEPEZIL HCL 10 MG TABLET PO (21:10)
[2023-08-12 04:49] VITALS: BP 108/62; PULSE 71; RESP 16; TEMP 36.4; O2SAT 93
[2023-08-12] MEDS: cilostazoL 100 MG TABLET PO ×2 (05:35→17:43)
--- NOTE | 2023-08-12 07:15 | PM.PNORT ---
Subjective Subjective Date/Time Seen: 08/12/23 07:15 Interval history: Patient seems to be comfortable. He did have blood work done yesterday, he is on Lovenox. There has been no change in his platelet count. He is mildly anemic. We will get new x-rays today to make sure there has been no displacement the fracture. Objective Data Vital Signs Vital Signs: Vital Signs - 24 hr 08/11/23 08:00 08/11/23 14:00 08/11/23 20:58 Temperature 98.0 F 97.8 F Pulse Rate 87 82 Respiratory Rate 18 18 Blood Pressure 128/90 122/58 L Pulse Oximetry 93 92 Oxygen Delivery Room Air 08/11/23 20:00 08/12/23 04:49 Temperature 97.6 F Pulse Rate 71 Respiratory Rate 16 Blood Pressure 108/62 Pulse Oximetry 93 Oxygen Delivery Room Air Intake/Output Intake/Output: Intake & Output 08/09/23 08/10/23 08/11/23 08/12/23 23:59 23:59 23:59 23:59 Intake Total 1513.3 1945 1180 Balance 1513.3 1945 1180 Meds/Results Medications: Active Medications Generic Name Dose Route Start Last Admin Trade Name Freq PRN Reason Stop Dose Admin Acetaminophen 650 mg 08/07/23 11:04 Acetaminophen 325 Mg Tablet PO Q4H PRN Mild Pain (1-3) or Fever Hydrocodone Bitart/Acetaminophen 1 tab 08/07/23 11:42 Hydrocodone/Acetaminophen (*Crx) 5-325 Mg Tablet PO Q4H PRN Moderate Pain (4-6) Aspirin 81 mg 08/09/23 09:00 08/11/23 08:58 Aspirin 81 Mg Enteric Tablet PO 81 mg DAILY OSCAR Administration Atorvastatin Calcium 80 mg 08/08/23 21:00 08/11/23 21:09 Atorvastatin 40 Mg Tablet PO 80 mg HS OSCAR Administration Cilostazol 100 mg 08/08/23 16:30 08/12/23 05:35 Cilostazol 100 Mg Tablet PO 100 mg BIDAC OSCAR Administration Donepezil HCl 10 mg 08/08/23 21:00 08/11/23 21:10 Donepezil Hcl 10 Mg Tablet PO 10 mg HS OSCAR Administration Enoxaparin Sodium 40 mg 08/08/23 09:00 08/11/23 09:05 Enoxaparin 40 Mg/0.4 Ml Syringe SUB-Q 40 mg DAILY OSCAR Administration Morphine Sulfate 2 mg 08/07/23 11:04 08/07/23 11:18 Morphine Sulfate (*Crx) 2 Mg/Ml Inj IV PUSH 2 mg Q2H PRN Administration Pain Rated 7-10 Naloxone HCl 0.1 mg 08/07/23 11:42 Naloxone Hcl 0.4 Mg/Ml Vial IV PUSH Q2M PRN Opiate Reversal Ondansetron HCl 4 mg 08/07/23 11:42 Ondansetron Inj 4 Mg/2 Ml Vial IV PUSH Q6H PRN Nausea And Vomiting Quetiapine Fumarate 50 mg 08/08/23 21:00 08/11/23 21:09 Quetiapine Fumarate 25 Mg Tablet PO 50 mg HS OSCAR Administration Trimethoprim/Sulfamethoxazole 1 tab 08/12/23 09:00 Sulfamethoxazole/Trimethoprim 800/160 Mg Ds Tablet PO Q12HR [facility] Radiology Results: ITS Impressions Hip/Pelvis X-Ray 08/07/23 10:17 Impression: 1: Acute minimally displaced fracture right greater trochanter. Right hip prosthesis remains well seated. Chest X-Ray 08/07/23 10:21 IMPRESSION: 1: NO ACUTE CARDIOPULMONARY DISEASE. Labs Labs: Laboratory Results - last 24 hr 08/11/23 08:11 WBC 10.7 H RBC 3.06 L Hgb 9.3 L Hct 29.1 L MCV 95.1 MCH 30.4 MCHC 32.0 RDW 15.4 H Plt Count 262 MPV 10.2 Immature Gran % (Auto) 0.6 H Neut % (Auto) 82.2 H Lymph % (Auto) 6.5 L Thomas % (Auto) 8.4 Eos % (Auto) 2.1 Baso % (Auto) 0.2 Lymph # (Auto) 0.70 L Thomas # (Auto) 0.9 H Eos # (Auto) 0.2 Baso # (Auto) 0.0 Abs Immat Gran (auto) 0.06 H Absolute Neuts (auto) 8.8 H Absolute Nucleated RBC 0.000 Nucleated RBC % 0.0 Sodium 139 Potassium 3.1 L Chloride 108 H Carbon Dioxide 28 Anion Gap 3 L BUN 15 Creatinine 0.90 Estim Creat Clear Calc 47 Estimated GFR > 60 Glucose 113 H Calcium 8.7
[2023-08-12 08:13] LABS: Basophils Percent Auto 0.4 % (0.2-1.2); Eosinophils Absolute Auto 0.2 K/mm3 (0-0.3); Eosinophils Percent Auto 2.8 % (0-4.4); Hematocrit 33.1 % (42.0-52.0); Hemoglobin 10.4 g/dL (14.0-18.0); Immature Granulocyte Absolute 0.03 K/mm3 (0.00-0.031); Immature Granulocyte Percent A 0.4 % (0-0.5); Lymphocytes Absolute Auto 0.59 K/mm3 (0.9-3.2); Lymphocytes Percent Auto 7.1 % (18.3-44.2); Mean Corpuscular HGB Conc 31.4 g/dl (32-36); Mean Corpuscular Hemoglobin 30.1 pg (26-34); Mean Corpuscular Volume 95.7 fl (80-100); Mean Platelet Volume 9.9 fl (7.4-10.4); Monocytes Absolute Auto 0.6 K/mm3 (0.1-0.6); Monocytes Percent Auto 7.2 % (2.6-8.5); Neutrophils Absolute Auto 6.9 K/mm3 (1.3-6.7); Neutrophils Percent Auto 82.1 % (45.5-73.1); Platelet Count Result 312 k/mm3 (150-375); Red Blood Count 3.46 M/mm3 (4.6-6.20); Red Cell Distribution Width 15.3 % (11.5-14.5); White Blood Count 8.4 K/mm3 (4.5-10.0)
--- NOTE | 2023-08-12 08:46 | PM.IMPN ---
Progress Note: A&P Assessment and Plan (1) Frequent falls: Code(s): R29.6 - Repeated falls Status: Acute (2) Hip fracture, right: Qualifiers: Encounter type: initial encounter Fracture type: closed Qualified Code(s): S72.001A - Fracture of unspecified part of neck of right femur, initial encounter for closed fracture Code(s): S72.001A - Fracture of unspecified part of neck of right femur, initial encounter for closed fracture Status: Acute (3) Dementia: Qualifiers: Alzheimer's disease onset: unspecified onset Dementia behavioral or psychological symptom: without behavioral, psychotic, or mood disturbance or anxiety Dementia severity: unspecified severity Dementia type: Alzheimer's Qualified Code(s): G30.9 - Alzheimer's disease, unspecified; F02.80 - Dementia in other diseases classified elsewhere, unspecified severity, without behavioral disturbance, psychotic disturbance, mood disturbance, and anxiety Code(s): F03.90 - Unspecified dementia, unspecified severity, without behavioral disturbance, psychotic disturbance, mood disturbance, and anxiety Status: Acute (4) Constipation: Qualifiers: Constipation type: slow transit constipation Qualified Code(s): K59.01 - Slow transit constipation Code(s): K59.00 - Constipation, unspecified Status: Acute (5) Anemia: Qualifiers: Anemia type: iron deficiency Iron deficiency anemia type: other iron deficiency Qualified Code(s): D50.8 - Other iron deficiency anemias Code(s): D64.9 - Anemia, unspecified Status: Acute (6) COPD (chronic obstructive pulmonary disease): Qualifiers: COPD type: emphysema Emphysema type: unspecified Qualified Code(s): J43.9 - Emphysema, unspecified Code(s): J44.9 - Chronic obstructive pulmonary disease, unspecified Status: Acute (7) HTN (hypertension): Code(s): I10 - Essential (primary) hypertension Status: Acute (8) Delirium: Code(s): R41.0 - Disorientation, unspecified Status: Acute Plan delirium, patient was agitated, had visual hallucination upon arrival per patient's statement, patient was in similar situation when patient had UTI possible due to dehydration, uncontrolled pain, and also UTI, provided multiple does of Zyprexa 10 mg IM start fluid resuscitation received ceftriaxone IV for UTI neuro check patient is not agitated, but still restless, continue cervical p.o. Change to Bactrim p.o. patient has E coli from urine culture, susceptible to Bactrim and ceftriaxone dehydration is improving received D5 night Ringer 100 mL/hour today corrected, patient is able to eat drink, discontinue IV fluid UTI Urinalysis August 02 suggests UTI, patient has pyuria, microscopic hematuria did not receive antibiotics received ceftriaxone IV urine culture grows E coli Change to Bactrim p.o. Right hip fracture patient had a fall on the right hip and patient has right hip pain since then No focal weakness Acute minimally displaced fracture right greater trochanter. Right hip prosthesis remains well seated on x-r optimize pain management Consult PT OT healthcare management for evaluation assisting placement Also placed surgeon considers patient does not need surgical treatment dementia Patient is not oriented to place and time, oriented to person only, baseline Continue home medication the night episode 10 mg daily p.o. Essential hypertension Continue amlodipine 2.5 mg daily p.o., metoprolol 25 mg b.i.d. p.o. Hyperlipidemia Continue Lipitor 80 mg daily p.o. GERD Continue omeprazole 40 mg daily p.o. CKD stage 3 Avoid nephrotoxic medication Follow-up BMP Chronic anemia Patient does not have active bleeding Hemoglobin close to baseline Follow-up CBC Psychiatry disorder Continue quetiapine 25 mg bedtime p.o. Per patient's , patient
[2023-08-12] MEDS: ASPIRIN 81 MG ENTERIC TABLET PO (08:51)
[2023-08-12] MEDS: SULFAMETHOXAZOLE/TRIMETHOPRIM 800/160 MG DS TABLET 1 TAB PO ×2 (08:51→20:16)
[2023-08-12 09:59] LABS: Anion Gap 7 mmol/L (4-12); Blood Urea Nitrogen 17 mg/dL (9-20); Calcium 9.3 mg/dL (8.4-10.2); Carbon Dioxide 27 mmol/L (22-30); Chloride 109 mmol/L (98-107); Estimated CRCL calculation 52 ml/min; Estimated Glomerular Filt Rate > 60; Glucose 108 mg/dL (65-110); Potassium 3.3 mmol/L (3.4-5.0); Sodium 143 mmol/L (137-145)
--- NOTE | 2023-08-12 11:44 | PC.NURSE ---
Per . She does not want xray at this time. Consult with hospice today at 330pm.
[2023-08-12 14:00] VITALS: BP 127/52; PULSE 119; RESP 18; TEMP 36.7; O2SAT 94
[2023-08-12 14:48] LABS: SARS-CoV-2 RNA PCR Negative (Negative)
--- NOTE | 2023-08-12 15:26 | PM.DS ---
DS: Summary Time Spent with Patient Time attestation: Total time spent providing and/or coordinating discharge services: DS: Data Data Completed and Pending Labs on day of discharge: Labs from last 24 hours 08/12/23 08/12/23 14:04 08:06 WBC 8.4 RBC 3.46 L Hgb 10.4 L Hct 33.1 L MCV 95.7 MCH 30.1 MCHC 31.4 L RDW 15.3 H Plt Count 312 MPV 9.9 Immature Gran % (Auto) 0.4 Neut % (Auto) 82.1 H Lymph % (Auto) 7.1 L Davidson % (Auto) 7.2 Eos % (Auto) 2.8 Baso % (Auto) 0.4 Lymph # (Auto) 0.59 L Davidson # (Auto) 0.6 Eos # (Auto) 0.2 Baso # (Auto) 0.0 Abs Immat Gran (auto) 0.03 Absolute Neuts (auto) 6.9 H Absolute Nucleated RBC 0.000 Nucleated RBC % 0.0 Sodium 143 Potassium 3.3 L Chloride 109 H Carbon Dioxide 27 Anion Gap 7 BUN 17 Creatinine 0.80 Estim Creat Clear Calc 52 Estimated GFR > 60 Glucose 108 Calcium 9.3 SARS-CoV-2 RNA (RT-PCR) Negative Discharge Plan Discharge Attending physician on discharge: Simon Horton Consulting providers: Domo Benitez Discharging Clinician: Simon Horton Anticipated Discharge Date/Time: 08/12/23 15:23 Activity: as tolerated Diet: as tolerated Discharge Instructions: Patient should be bed to chair only and should be light partial weight-bearing for these transfers. CBC drawn on 08/14/2023. Call if hemoglobin less than 9 or platelets less than 100,000 Follow-up in office on approximately September [address] Benitez. Please call [phone] to schedule appointment. Stand Alone Forms: General Discharge Information Discharge Medications: New enoxaparin [Lovenox] 40 mg/0.4 mL Syringe 40 mg subcut DAILY Qty: 33 0RF Continued quetiapine 25 mg tablet 50 mg PO HS cilostazol 50 mg tablet 100 mg PO BID donepezil 10 mg tablet 10 mg PO HS atorvastatin 80 mg tablet 80 mg PO HS aspirin [Adult Low Dose Aspirin] 81 mg tablet,delayed release (DR/EC) 81 mg PO DAILY sulfamethoxazole-trimethoprim [Bactrim DS] 800-160 mg tablet 1 tablet PO Q12H 10 Days Qty: 20 0RF Rx Instructions: started 08/02 HS Discontinued amlodipine 2.5 mg tablet 2.5 mg PO DAILY metoprolol tartrate 50 mg tablet 25 mg PO Q12H Date of admission: 08/07/23 11:05 Primary Care Provider: Lorelei Duggan Admitting Provider: Simon Horton Attending physician on admission: Simon Horton Condition: Stable
[2023-08-12] MEDS: HYDROcodone/acetaminophen (*CRX) 5-325 MG TABLET 1 TAB PO (20:15)
[2023-08-12] MEDS: QUEtiapine FUMARATE 25 MG TABLET 50 MG PO (20:16)
[2023-08-12] MEDS: DONEPEZIL HCL 10 MG TABLET PO (20:17)
[2023-08-12] MEDS: ATORVASTATIN 40 MG TABLET 80 MG PO (20:17)
[2023-08-12 22:02] VITALS: BP 134/68; PULSE 120; RESP 18; TEMP 36.4; O2SAT 96
[2023-08-13] MEDS: cilostazoL 100 MG TABLET PO (05:29)
[2023-08-13 06:00] VITALS: BP 113/58; PULSE 85; RESP 16; TEMP 36.4; O2SAT 95
--- NOTE | 2023-08-13 10:05 | PM.IMPN ---
Progress Note: A&P Assessment and Plan (1) Frequent falls: Code(s): R29.6 - Repeated falls Status: Acute (2) Hip fracture, right: Qualifiers: Encounter type: initial encounter Fracture type: closed Qualified Code(s): S72.001A - Fracture of unspecified part of neck of right femur, initial encounter for closed fracture Code(s): S72.001A - Fracture of unspecified part of neck of right femur, initial encounter for closed fracture Status: Acute (3) Dementia: Qualifiers: Alzheimer's disease onset: unspecified onset Dementia behavioral or psychological symptom: without behavioral, psychotic, or mood disturbance or anxiety Dementia severity: unspecified severity Dementia type: Alzheimer's Qualified Code(s): G30.9 - Alzheimer's disease, unspecified; F02.80 - Dementia in other diseases classified elsewhere, unspecified severity, without behavioral disturbance, psychotic disturbance, mood disturbance, and anxiety Code(s): F03.90 - Unspecified dementia, unspecified severity, without behavioral disturbance, psychotic disturbance, mood disturbance, and anxiety Status: Acute (4) Constipation: Qualifiers: Constipation type: slow transit constipation Qualified Code(s): K59.01 - Slow transit constipation Code(s): K59.00 - Constipation, unspecified Status: Acute (5) Anemia: Qualifiers: Anemia type: iron deficiency Iron deficiency anemia type: other iron deficiency Qualified Code(s): D50.8 - Other iron deficiency anemias Code(s): D64.9 - Anemia, unspecified Status: Acute (6) COPD (chronic obstructive pulmonary disease): Qualifiers: COPD type: emphysema Emphysema type: unspecified Qualified Code(s): J43.9 - Emphysema, unspecified Code(s): J44.9 - Chronic obstructive pulmonary disease, unspecified Status: Acute (7) HTN (hypertension): Code(s): I10 - Essential (primary) hypertension Status: Acute (8) Delirium: Code(s): R41.0 - Disorientation, unspecified Status: Acute Plan delirium, patient was agitated, had visual hallucination upon arrival per patient's statement, patient was in similar situation when patient had UTI possible due to dehydration, uncontrolled pain, and also UTI, provided multiple does of Zyprexa 10 mg IM start fluid resuscitation received ceftriaxone IV for UTI neuro check patient is not agitated. Change to Bactrim p.o. patient has E coli from urine culture, susceptible to Bactrim and ceftriaxone delirium resolved, continue home meds dehydration is improving received D5 night Ringer 100 mL/hour today corrected, patient is able to eat drink, discontinue IV fluid UTI Urinalysis August 02 suggests UTI, patient has pyuria, microscopic hematuria did not receive antibiotics received ceftriaxone IV urine culture grows E coli Change to Bactrim p.o. Right hip fracture patient had a fall on the right hip and patient has right hip pain since then No focal weakness Acute minimally displaced fracture right greater trochanter. Right hip prosthesis remains well seated on x-r optimize pain management Consult PT OT in home caregiver for evaluation assisting placement Also placed surgeon considers patient does not need surgical treatment dementia Patient is not oriented to place and time, oriented to person only, baseline Continue home medication the night episode 10 mg daily p.o. Essential hypertension Continue amlodipine 2.5 mg daily p.o., metoprolol 25 mg b.i.d. p.o. Hyperlipidemia Continue Lipitor 80 mg daily p.o. GERD Continue omeprazole 40 mg daily p.o. CKD stage 3 Avoid nephrotoxic medication Follow-up BMP kidney function continue to improve, creatinine 0.8, GFR above 60 Chronic anemia Patient does not have active bleeding Hemoglobin close to baseline Follow-up CBC Psychiatry disorder Zackary
--- NOTE | 2023-08-13 10:06 | PM.DS ---
DS: Admitting Diagnosis Discharge Date 08/12 Admitting Diagnosis (1) Frequent falls: Code(s): R29.6 - Repeated falls Status: Acute (2) Hip fracture, right: DS: Discharge Diagnosis Discharge Diagnosis (1) Frequent falls: Code(s): R29.6 - Repeated falls Status: Acute (2) Hip fracture, right: Qualifiers: Encounter type: initial encounter Fracture type: closed Qualified Code(s): S72.001A - Fracture of unspecified part of neck of right femur, initial encounter for closed fracture Code(s): S72.001A - Fracture of unspecified part of neck of right femur, initial encounter for closed fracture Status: Acute (3) Dementia: Qualifiers: Alzheimer's disease onset: unspecified onset Dementia behavioral or psychological symptom: without behavioral, psychotic, or mood disturbance or anxiety Dementia severity: unspecified severity Dementia type: Alzheimer's Qualified Code(s): G30.9 - Alzheimer's disease, unspecified; F02.80 - Dementia in other diseases classified elsewhere, unspecified severity, without behavioral disturbance, psychotic disturbance, mood disturbance, and anxiety Code(s): F03.90 - Unspecified dementia, unspecified severity, without behavioral disturbance, psychotic disturbance, mood disturbance, and anxiety Status: Acute (4) Constipation: Qualifiers: Constipation type: slow transit constipation Qualified Code(s): K59.01 - Slow transit constipation Code(s): K59.00 - Constipation, unspecified Status: Acute (5) Anemia: Qualifiers: Anemia type: iron deficiency Iron deficiency anemia type: other iron deficiency Qualified Code(s): D50.8 - Other iron deficiency anemias Code(s): D64.9 - Anemia, unspecified Status: Acute (6) COPD (chronic obstructive pulmonary disease): Qualifiers: COPD type: emphysema Emphysema type: unspecified Qualified Code(s): J43.9 - Emphysema, unspecified Code(s): J44.9 - Chronic obstructive pulmonary disease, unspecified Status: Acute (7) HTN (hypertension): Code(s): I10 - Essential (primary) hypertension Status: Acute (8) Delirium: Code(s): R41.0 - Disorientation, unspecified Status: Acute DS: Summary Hospital Course Hospital Course: Patient has a profound dementia, history is taken from patient's and patient's son and patient ER physician 78-year-old with a history of dementia, hypertension, hyperlipidemia, psychiatric disorders, per the ED because of fall. patient had a frequent fall recently is. Patient was sitting in a chair, fell on the floor on the right hip. Patient sustained severe pain of right hip, could not stand up and ambulate. Patient denied loss consciousness, denies hitting head, patient also denies chest pain shortness of breath, lightheadedness. patient did not have nausea vomiting diarrhea dysuria. Patient was brought to ED for further evaluation and treatment. upon arrival in the ED, patient was afebrile, blood pressure stable, pulse ox 95 more room air, lab showed chronic anemia, hemoglobin 10.4 on baseline, elevated BUN creatinine close to baseline, GFR 59,, EKG shows sinus rhythm no specific ST T-wave changes, x-ray showed acute minimal displaced fracture right greater trochanter, processes remain sealed without evidence of loosening. ER physician consulted the orthopedic doctor, orthopedic surgeon considers patient does not need surgical treatment, recommend pain management, and patient need rehab placement because patient cannot ambulate without assistance the following med issues have been addressed during hospitalization delirium, patient was agitated, had visual hallucination upon arrival per patient's statement, patient was in similar situation when patient had UTI possible due to dehydration, uncontrolled pain, and also UTI, provided multiple does of Zyprexa 10 mg IM sta
[2023-08-13] MEDS: SULFAMETHOXAZOLE/TRIMETHOPRIM 800/160 MG DS TABLET 1 TAB PO (10:09)
[2023-08-13] MEDS: ENOXAPARIN 40 MG/0.4 ML SYRINGE SUB-Q (10:10)
[2023-08-13] MEDS: ASPIRIN 81 MG ENTERIC TABLET PO (10:10)
[2023-08-13 14:00] VITALS: BP 117/57; PULSE 98; RESP 18; TEMP 36.7; O2SAT 16
== END 2023-08-13 17:51 | disposition hospice, inpatient (51) | DRG 535 ==
LOC: ANHED 11:04 → ANH3MED 11:44
PROVIDERS: Admitting Provider Hospitalist; Emergency Provider Family Medicine; PCP Family Medicine; Visit Provider Hospitalist
DX: S72.111A Displaced fracture of greater trochanter of right femur, initial encounter for closed fracture (principal); E43 Unspecified severe protein-calorie malnutrition; F03.911 Unspecified dementia, unspecified severity, with agitation; F05 Delirium due to known physiological condition; N39.0 Urinary tract infection, site not specified; Z68.1 Body mass index [BMI] 19.9 or less, adult; Z11.52 Encounter for screening for COVID-19; W08.XXXA Fall from other furniture, initial encounter; I25.10 Atherosclerotic heart disease of native coronary artery without angina pectoris; J44.9 Chronic obstructive pulmonary disease, unspecified; E78.00 Pure hypercholesterolemia, unspecified; G47.33 Obstructive sleep apnea (adult) (pediatric); E78.5 Hyperlipidemia, unspecified; D64.9 Anemia, unspecified; E86.0 Dehydration; I12.9 Hypertensive chronic kidney disease with stage 1 through stage 4 chronic kidney disease, or unspecified chronic kidney disease; N18.30 Chronic kidney disease, stage 3 unspecified; K21.9 Gastro-esophageal reflux disease without esophagitis; F17.210 Nicotine dependence, cigarettes, uncomplicated; K59.00 Constipation, unspecified; R29.6 Repeated falls; Z96.643 Presence of artificial hip joint, bilateral; I25.2 Old myocardial infarction; Z85.46 Personal history of malignant neoplasm of prostate; Z95.5 Presence of coronary angioplasty implant and graft; Z90.49 Acquired absence of other specified parts of digestive tract; Z79.82 Long term (current) use of aspirin
CPT/HCPCS: 36415; 71046; 73521; 80048; 80053; 81003; 83735; 84100; 85025; 87635; 93005; 96374; 97162; 99285; A9270; J0696; J1650; J2270; J2359; J7030; J7121